=== PATIENT | female | born 1930 | race Caucasian/White ===

== ENCOUNTER → 2017-10-26 | Outpatient (CLI) | payer MEDICARE ==
[~2017-10-26] MED LIST: ASPIRIN81 MG PO; ATORVASTATIN CA40 MG PO; DICLOFENAC SODI50 MG PO; KEFLEX500 MG PO; NORCO 7.5-3251 EACH PO; SIMVASTATIN40 MG PO; TYLENOL WITH C1 EACH PO; XARELTO10 MG PO; Z.0.LIPITOR20 MG
--- NOTE | 2017-10-26 11:40 | Diagnostic Imaging Report ---
PROCEDURE:THORACIC SPINE 2VW COMPARISON:Patients [facility], DX, SP LUMBAR, COMPLETE MIN 4VW, 10/26/2017, 11:01. Patients [facility], DX, CHEST SINGLE (PORTABLE), 09/10/2013, 11:17. INDICATIONS:BACK PAIN FINDINGS:Generalized osteopenia. Age-indeterminate compression deformities of likely L1 and T10. Degenerative disc changes in the lower cervical and thoracic spine. No lytic or blastic lesions. No significant spondylolisthesis. Paravertebral soft tissues are unremarkable. Atherosclerotic calcification of the thoracic aorta. CONCLUSION: Generalized osteopenia, which limits evaluation of the bony structures. Age-indeterminate compression deformities of likely L1, and T10. Hiren Fuentes M.D. Dictated by: Hiren Fuentes M.D. on 10/26/2017 at 11:41 Electronically approved by: Hiren Fuentes M.D. on 10/26/2017 at 11:41
--- NOTE | 2017-10-26 11:43 | Diagnostic Imaging Report ---
PROCEDURE:L-SPINE COMPLETE COMPARISON:None. INDICATIONS:BACK PAIN FINDINGS: Generalized osteopenia. No definite acute, displaced fracture. Age-indeterminate compression deformities of the L1, L2, and L4 vertebral bodies. No other vertebral body heights are preserved. No lytic or blastic lesions. Mild degenerative disc changes. Slight grade 1 anterolisthesis of L5 on L4 and S1. Facet hypertrophy. L4-L5 and L5-S1. Atherosclerotic calcification of the abdominal aorta. Bilateral oblique views show no spondylolysis. CONCLUSION: Generalized osteopenia limits evaluation of the bony structures. Age-indeterminate compression deformities of the L1, L2, and L4 vertebral bodies. Degenerative disc changes with slight grade 1 anterolisthesis of L5 on L4 and S1. Hiren Fuentes M.D. Dictated by: Hiren Fuentes M.D. on 10/26/2017 at 11:44 Electronically approved by: Hiren Fuentes M.D. on 10/26/2017 at 11:44
== END ==
LOC: RAD 10:42
PROVIDERS: ATTEND Family Medicine
DX: M54.6 Pain in thoracic spine (principal); M54.5 Low back pain
CPT/HCPCS: 72070; 72110

== ENCOUNTER 2018-01-30 06:12 | Inpatient (IN) | payer MEDICARE ==
[2018-01-30] VITALS (27 sets, daily range): BP systolic 94–117; BP diastolic 42–64
[~2018-01-30] VITALS: Ht 160 cm; Wt 54.9 kg
[2018-01-30 06:34] LABS: BASOPHILS % 0.3 % (0.0-1.0); EOSINOPHILS # (AUTO) 0.2 (0.0-0.4); HEMATOCRIT 40.5 % (34.2-44.1); HEMOGLOBIN 13.4 g/dL (12.0-16.0); LYMPHOCYTES # (AUTO) 1.5 (1.0-3.2); LYMPHOCYTES % 13.4 % (18.0-39.1); MEAN CORPUSCULAR HEMOGLOBIN 30.4 pg (28-32); MEAN CORPUSCULAR HGB CONC 33.1 g/dL (31-35); MEAN CORPUSCULAR VOLUME 91.8 fL (81-99); MONOCYTES # (AUTO) 0.6 (0.2-0.8); NEUTROPHILS % 78.6 % (38.7-80.0); PLATELET COUNT 388 x10e3/uL (140-360); RED BLOOD COUNT 4.41 x10e6/uL (3.6-5.1); RED CELL DISTRIBUTION WIDTH 12.8 % (11.7-14.4)
[2018-01-30 06:45] LABS: INR 1.01; PROTHROMBIN TIME 12.5 seconds (11.9-14.5)
[2018-01-30 06:46] LABS: PARTIAL THROMBOPLASTIN TIME 29.7 seconds (23.8-35.5)
[2018-01-30] MEDS ORDERED: ONDANSETRON HCL INJ 2 MG/ML VIAL IV STA (06:48)
[2018-01-30] MEDS ORDERED: MORPHINE SULFATE 2 MG/ML SYR IV STA (06:48)
[2018-01-30 06:54] LABS: ALBUMIN 3.8 g/dL (3.5-5.0); ALBUMIN/GLOBULIN RATIO 1.1 (0.8-2.0); ANION GAP 15.5 mmol/L (8-16); CALCIUM 10.1 mg/dL (8.4-10.2); CREATININE, SERUM 1.73 mg/dL (0.57-1.11); POTASSIUM 4.5 mmol/L (3.5-5.1)
[2018-01-30] MEDS ORDERED: DIATRIZOATE MEGL/DIATRIZOA SOD 30 ML BTL PO ONE (06:55)
[2018-01-30 07:00] LABS: CREATINE KINASE MB 1.4 ng/mL (0-5.0)
[2018-01-30] MEDS ORDERED: NIFEDIPINE 10 MG CAP PO STA (07:04)
[2018-01-30] MEDS ORDERED: LABETALOL HCL 5 MG/ML 20ML VIAL IV STA (07:19)
[2018-01-30 07:43] LABS: CLARITY,URINE CLOUDY (CLEAR); COLOR,URINE YELLOW (YELLOW); KETONES,URINE TRACE (NEGATIVE); LEUKOCYTE ESTERASE ,URINE NEGATIVE (NEGATIVE); NITRITE,URINE NEGATIVE (NEGATIVE); PROTEIN,URINE DIPSTICK 2+ (NEGATIVE); URINE UROBILINOGEN 0.2 mg/dL (0.2 - 1)
[2018-01-30 07:44] LABS: BILIRUBIN,URINE 1+ (NEGATIVE)
[2018-01-30 07:47] LABS: EPITHELIAL CELLS,URINE MODERATE /LPF
[2018-01-30 07:48] LABS: BACTERIA,URINE MODERATE /HPF; RBC,URINE 0-5 /HPF (0-5); TRANSITIONAL EPI CELLS,URINE RARE
--- NOTE | 2018-01-30 08:46 | Diagnostic Imaging Report ---
PROCEDURE: CT ABDOMEN AND PELVIS WITHOUT CONTRAST TECHNIQUE: The abdomen and pelvis were scanned utilizing a multidetector helical scanner from the diaphragm to the lesser trochanter with administration of oral contrast. No IV contrast was administered per protocol request. Coronal and sagittal multiplanar reformations were obtained. COMPARISON: Lumbar spine radiographs 10/26/17. INDICATIONS: ABDOMINAL PAIN FINDINGS: ABSENCE OF INTRAVENOUS CONTRAST DECREASES SENSITIVITY FOR DETECTION OF FOCAL LESIONS AND VASCULAR PATHOLOGY. LOWER THORAX: Coronary atherosclerosis. Severe emphysematous changes of the lungs. Patchy opacities at the left lung base. Calcified granuloma in the left lower lobe. Bronchial wall thickening. HEPATOBILIARY: Multiple calcified granulomas in the liver. No other focal hepatic lesions. No biliary ductal dilatation. SPLEEN: No splenomegaly. Multiple calcified granulomas. PANCREAS: No focal masses or ductal dilatation. ADRENALS: No adrenal nodules. KIDNEYS/URETERS: No hydronephrosis, stones, or solid mass lesions. PELVIC ORGANS/BLADDER: Unremarkable. PERITONEUM / RETROPERITONEUM: Moderate to large volume free intraperitoneal air in the abdomen, most pronounced in the upper abdomen in perihepatic location and left upper quadrant. No source of perforated viscous identified. Small amount of free fluid in the abdomen. LYMPH NODES: No lymphadenopathy. VESSELS: Extensive atherosclerotic calcifications of the abdominal aorta and branch vessels. Infrarenal abdominal aortic aneurysm measuring up to 2.8 cm. GI TRACT: No distention or wall thickening. No evidence of bowel obstruction. BONES AND SOFT TISSUES: Unremarkable. Severe wedge compression deformities of L1 and L4 with loss of approximately 75 percent of vertebral body height. There has been interval loss of vertebral body height at L4 compared to radiograph on 10/26/17. Moderate wedge compression deformity of T12 and L2 with loss of approximately 50 percent of vertebral body height. Posterior fracture deformity at L2 with mild central canal narrowing. Mild wedge compression deformity of T11 with loss of 25 percent of vertebral body height. Mild retrolisthesis of L1 on L2. Degenerative changes of the lumbar spine. Status post left total hip arthroplasty. IMPRESSION: Moderate to large volume free intraperitoneal air, most pronounced in the upper abdomen. Site of perforated viscous is not identified. Multiple wedge compression deformities, severe at L1 and L4 with loss of vertebral body height at L4 compared to radiograph on 10/26/17. Moderate compression deformity at L2 with posterior fracture deformity, resulting in mild central canal narrowing. Findings discussed with ED Dr. Preciado on 01/30/18 at 848 AM. Dictated by: DEVONTE AGUIRRE M.D. on 01/30/2018 at 8:51 Electronically approved by: DEVONTE AGUIRRE M.D. on 01/30/2018 at 8:51
[2018-01-30] MEDS ORDERED: PANTOPRAZOLE 40 MG 10ML VIAL IV STA (08:50)
[2018-01-30] MEDS ORDERED: PIPER-TAZ 3.375 GM 50 ML IV ONE (09:00)
[2018-01-30] MEDS ORDERED: SODIUM CHLORIDE 0.9% 1000ML 1,000 ML IV ONE (09:00)
[2018-01-30] MEDS ORDERED: HEPARIN SOD (PORCINE) 5,000 UNIT/ML VIAL ONE (10:43)
[2018-01-30] MEDS ORDERED: HEPARIN SOD/SOD CHLORIDE 1,000 ML ONE (10:44)
--- NOTE | 2018-01-30 11:36 | Diagnostic Imaging Report ---
PROCEDURE:ABDOMEN-1VIEW (KUB) COMPARISON: CT abdomen/pelvis 01/30/2018. INDICATIONS:NASOGASTRIC TUBE PLACEMENT FINDINGS:Motion artifact limits evaluation. No NG tube is identified on this radiograph. Upper abdomen is partially excluded from the field of view. Please refer to same day CT for details of intraperitoneal air. Air filled colonic loops measuring up to 8.8 cm are noted. Degenerative changes of the lower lumbar spine with loss of vertebral body heights, better characterized on same day CT. Conclusion: No NG tube is identified on KUB. Consider chest radiograph to evaluate for potential NG tube position in the thorax. Please refer to same day CT for details of intraperitoneal air. Air filled colonic loops are noted. Dictated by: DEVONTE AGUIRRE M.D. on 01/30/2018 at 11:41 Electronically approved by: DEVONTE AGUIRRE M.D. on 01/30/2018 at 11:41
[2018-01-30] MEDS ORDERED: SODIUM CHLORIDE 0.9% 1000ML 1,000 ML IV SCH (12:20)
[2018-01-30] MEDS ORDERED: ONDANSETRON HCL INJ 2 MG/ML VIAL IV PRN ×2 (12:30→15:15)
[2018-01-30] MEDS ORDERED: SODIUM CHLORIDE FLUSH 10 ML SYR INJ PRN (12:30)
[2018-01-30] MEDS ORDERED: NEOSTIGMINE 5 MG/5ML SYR ONE (14:39)
[2018-01-30] MEDS ORDERED: LIDOCAINE HCL 2% LOCAL INJ 5 ML SDV VIAL INJ ONE (14:39)
[2018-01-30] MEDS ORDERED: DEXAMETHASONE SOD PHOS INJ 4 MG/ML VIAL ONE (14:39)
[2018-01-30] MEDS ORDERED: ONDANSETRON HCL INJ 2 MG/ML VIAL ONE (14:39)
[2018-01-30] MEDS ORDERED: ETOMIDATE 2 MG/ML 10 ML INJ IV ONE (14:39)
[2018-01-30] MEDS ORDERED: PHENYLEPHRINE HCL 1% 10 MG/ML VIAL ONE (14:39)
[2018-01-30] MEDS ORDERED: EPHEDRINE SULFATE INJ 50 MG/10 ML SYR ONE (14:39)
[2018-01-30] MEDS ORDERED: SUCCINYLCHOLINE 200 MG/10 ML SYR ONE (14:39)
[2018-01-30] MEDS ORDERED: ROCURONIUM BROMIDE 10 MG/ML 5ML VIAL ONE (14:39)
[2018-01-30] MEDS ORDERED: PROPOFOL IV EMULSION 10 MG/ML 20 ML VIAL ONE (14:39)
[2018-01-30] MEDS ORDERED: ESMOLOL HCL 100MG/10ML 10 MG/ML VIAL ONE (14:39)
[2018-01-30] MEDS ORDERED: HYDRALAZINE HCL 20 MG/ML VIAL ONE (14:39)
[2018-01-30] MEDS ORDERED: SEVOFLURANE INHAL SOLN 250 ML PEN BTL ONE (14:39)
[2018-01-30] MEDS ORDERED: GLYCOPYRROLATE INJ 1MG/ 5 ML SYR ONE (14:39)
[2018-01-30] MEDS ORDERED: ACETAMINOPHEN 1000 MG/100 ML IV PRN (15:15)
[2018-01-30] MEDS: SODIUM CHLORIDE 0.9% 250ML IRRIG IR SCH ×3 (15:15→22:30)
[2018-01-30] MEDS ORDERED: CEFTRIAXONE SOD 1 GM VIAL IV SCH (15:30)
[2018-01-30] MEDS ORDERED: SODIUM CHLORIDE 0.9% 50ML 50 ML ONE (16:00)
--- NOTE | 2018-01-30 17:02 | Diagnostic Imaging Report ---
PROCEDURE: A single AP view of the chest. COMPARISON: Patients [facility], DX, CHEST SINGLE (PORTABLE), 09/10/2013, 11:17. INDICATIONS: FALL FINDINGS: Lines/tubes: Enteric tube has distal tip projecting in the stomach fundus/body and proximal side port likely in the proximal fundus. Right sided central line has distal tip projecting in the proximal to mid SVC. Lungs: The lungs are well-inflated. Bilateral perihilar interstitial opacities. Increased retrocardiac density with near total obscuration of the left hemidiaphragm Pleura: No right effusion, or a pneumothorax. Heart and mediastinum: Mildly prominent cardiac silhouette, which may be partly due to AP projection. Central pulmonary venous congestion Bones: No acute bony abnormality. IMPRESSION: 1. central pulmonary venous congestion and bilateral perihilar interstitial edema. 2. Increased retrocardiac density with near total obscuration of the left hemidiaphragm may represent left pleural effusion and associated compressive atelectasis or consolidation. Hiren Fuentes M.D. Dictated by: Hiren Fuentes M.D. on 01/30/2018 at 17:08 Electronically approved by: Hiren Fuentes M.D. on 01/30/2018 at 17:08
[2018-01-30] MEDS: DEXTROSE 5%/LACTATED RINGERS 1,000 ML IV SCH (17:59)
[2018-01-30] MEDS ORDERED: MORPHINE SULFATE INJ 10 MG/ML ONE (19:49)
[2018-01-30] MEDS ORDERED: FENTANYL CITRATE/PF 100MCG/2 ML INJ ONE (19:49)
[2018-01-30] MEDS: METRONIDAZOLE 500MG/NS 100ML 100 ML IV SCH (21:40)
[2018-01-30] MEDS: CEFEPIME HCL 1 GM VIAL IV SCH (21:40)
[2018-01-31] VITALS (68 sets, daily range): BP systolic 102–169; BP diastolic 40–106
[2018-01-31 01:52] LABS: ABG HCO3 22 mmol/L (23-28); ABG PCO2 47 mmHg (41-51); ABG PH 7.28 (7.31-7.41); ABG PO2 99 mmHg (80-105)
[2018-01-31 01:58] LABS: ABG HCO3 22 mmol/L (23-28); ABG PCO2 48 mmHg (41-51); ABG PH 7.28 (7.31-7.41); ABG PO2 90 mmHg (80-105)
[2018-01-31] MEDS: SODIUM CHLORIDE 0.9% 250ML IRRIG IR SCH ×6 (04:00→23:15)
[2018-01-31 04:41] LABS: BASOPHILS % 0.1 % (0.0-1.0); HEMATOCRIT 29.9 % (34.2-44.1); HEMOGLOBIN 9.7 g/dL (12.0-16.0); LYMPHOCYTES # (AUTO) 0.4 (1.0-3.2); MEAN CORPUSCULAR HEMOGLOBIN 30.6 pg (28-32); MEAN CORPUSCULAR HGB CONC 32.4 g/dL (31-35); MEAN CORPUSCULAR VOLUME 94.3 fL (81-99); MONOCYTES # (AUTO) 0.6 (0.2-0.8); MONOCYTES % 4.5 % (4.4-11.3); NEUTROPHILS # (AUTO) 12.5 (2.1-6.9); NEUTROPHILS % 92.2 % (38.7-80.0); PLATELET COUNT 234 x10e3/uL (140-360); RED BLOOD COUNT 3.17 x10e6/uL (3.6-5.1); RED CELL DISTRIBUTION WIDTH 13.1 % (11.7-14.4)
[2018-01-31 05:07] LABS: ALBUMIN 2.3 g/dL (3.5-5.0); ANION GAP 10.8 mmol/L (8-16); CALCIUM 7.8 mg/dL (8.4-10.2); CREATININE, SERUM 1.42 mg/dL (0.57-1.11); POTASSIUM 4.8 mmol/L (3.5-5.1)
[2018-01-31] MEDS: DEXTROSE 5%/LACTATED RINGERS 1,000 ML IV SCH ×3 (05:10→21:13)
[2018-01-31] MEDS: METRONIDAZOLE 500MG/NS 100ML 100 ML IV SCH ×3 (05:10→21:32)
[2018-01-31] MEDS: CEFEPIME HCL 1 GM VIAL IV SCH ×3 (05:10→21:32)
[2018-01-31 06:31] LABS: BAND NEUTROPHILS % (MANUAL) 9 %; LYMPHOCYTES % (MANUAL) 1 % (19-48); MONOCYTES % (MANUAL) 5 % (3.4-9.0); NEUTROPHILS % (MANUAL) 85 % (40-74); PLATELET ESTIMATE ADEQUATE; PLATELET MORPHOLOGY COMMENT NORMAL; RBC MORPHOLOGY COMMENT NORMAL
--- NOTE | 2018-01-31 13:59 | Operative Report ---
DATE OF PROCEDURE: January 30, 2018 PREOPERATIVE DIAGNOSIS: Perforated viscus. POSTOPERATIVE DIAGNOSIS: Perforated duodenal ulcer with peritonitis. OPERATION PERFORMED: 1. Exploratory laparotomy. 2. Vagotomy. 3. Antrectomy with Gerhard-en-Y retrocolic reconstruction. BUFFING AND SUEDING MACHINE OPERATOR: Dr. Albert Berry. ANESTHESIA: General. COMPLICATIONS: None. ESTIMATED BLOOD LOSS: 100 mL. DESCRIPTION OF PROCEDURE: With the patient lying in bed in the supine position under good general endotracheal anesthesia, the abdomen was prepped with Betadine solution and draped in the usual manner. An upper midline incision was made. It was carried down through the subcutaneous tissue and through the midline fascia. The peritoneum was opened and the abdomen was entered. Upon entering the abdominal cavity, exploration revealed some gastric fluid and contents in the upper abdomen consistent with a perforated-type ulcer. This seemed to be contained mostly to the upper abdomen. Examination at this point revealed that there was a huge perforation of the duodenal bulb with basically the complete anterior aspect of the duodenal bulb blown out. We decided that it would be very difficult to close such a large perforation without running a very high risk of the whole suture line falling apart and potentially also causing a significant stricture. As the perforation had totally blown out the anterior wall of the duodenum, we decided that the safest thing to do would be to do a resection. All of the abdomen was then explored. There was not much contamination in the lower abdomen. All of the fluid in the right upper quadrant was then aspirated, and there were some adhesions in the mid abdomen from the patient's old surgery that were taken down so that we could have free access to the intra-abdominal cavity. At this point, the distal esophagus was then mobilized and retracted. The anterior and the posterior vagi were identified, and a section was removed and a complete vagotomy was achieved. The short gastrics were then divided using the Enseal device. The lesser sac was entered, and the stomach was slowly dissected along the greater curvature all the way through the duodenum and beyond the area of the perforation. The gastroduodenal artery was identified, ligated with 2-0 silk and divided. The lesser curvature vessels were then divided with the Enseal device all the way down to the duodenum. At this point, an application of the TA-60 was used, and the duodenum was divided including the point of perforation. Once this was done, the stomach was then divided proximally to a full antrectomy using an application of the TA-90 stapler and the specimen was sent for pathological examination. The gastric staple line and the duodenal staple line were then both oversewn with silk suture. The ligament of Treitz was then identified, and at a proper place that would easily reach into the upper abdomen the proximal jejunum was then divided with an application of the MICHELLE 75 stapler. The limb was then brought up in a retrocolic fashion up into the upper abdomen with absolutely no tension whatsoever. The gastric jejunostomy was then performed with another application of the MICHELLE 75 stapler, and the remaining opening was closed with a TA-60 stapler and the anastomosis was reinforced with 3-0 silk suture. The jejunojejunostomy was then performed 50 cm distal to the gastric jejunostomy in a [id number] fashion with another application of the MICHELLE 75 stapler, and the remaining opening was closed with a TA-60 stapler. Gloves and instruments were then exchanged. The jejunojejunostomy was then reinforced with interrupted sutures of 3-0 silk. The mesenteric rent was then closed with a running suture of 2-0 Vicryl. The abdomen was then copiously irrigated with many liters of saline solution, and perfect hemostasis was ascertained. The nasogastric tube was placed in the proper spot in the gastric pouch, and then the abdomen was then closed in layers. The peritoneum was closed with a running suture of number 1 Vicryl. The midline fascia was closed with a running suture of number 1 Vicryl, and the skin was closed with clips. A dressing was applied. The sponge, lap and needle count was correct. The patient tolerated the procedure well and returned to the recovery room in stable condition. Job#: [id number] EV
--- NOTE | 2018-01-31 14:07 | History and Physical ---
CHIEF COMPLAINT: Abdominal pain. HPI: Current information is being obtained from the nursing staff and ER note as the patient is currently sedated in the ICU. This is an 87-year-old female who comes into the ED with complaints of abdominal pain in which she has been taking Advil and NSAIDs for unknown period of time due to chronic pain, presents due to abdominal pain for further evaluation to the ER. According to the imaging studies here, she was found to have free air seen on CT abdomen and pelvis requiring urgent surgery. General surgery was consulted in which the patient went to the OR urgently. She was found to have a perforated duodenum and which was operated on and taken care of now. Patient seen and evaluated at bedside in the ICU, currently sedated after given significant amount of pain control in PACU. REVIEW OF SYSTEMS: Pertinent positive: Abdominal pain. I am unable to obtain the rest of the 14-point review of systems as the patient is currently sedated. ALLERGIES: NO KNOWN DRUG ALLERGIES. HOME MEDICATIONS: 1. Aspirin 162 mg daily. 2. Xarelto 1 mg p.o. daily. 3. Simvastatin 40 mg at bedtime. PAST MEDICAL HISTORY: Unknown as patient is currently sedated. SURGICAL HISTORY: Unknown. FAMILY HISTORY: Hypertension and diabetes. SOCIAL HISTORY: No reports of drugs, alcohol, or smoking or any other issues. Many of the information is being unobtainable due to the patient being sedated and not responsive at this time. PHYSICAL EXAMINATION: VITAL SIGNS: Temperature 97.4, pulse 82, respiratory rate is approximately 8 to 10 with blood pressure 117/53, pulse ox 100% on 2 liters nasal cannula. GENERAL: Currently sedated on examination, but able to open her eyes during sternal rub. HEENT: Head: Normocephalic, atraumatic. Eyes: Pupils equal, round, and reactive to light bilaterally. Extraocular movements intact bilaterally. Throat: No evidence of any erythema or exudates in the posterior pharynx. Poor dentition. NECK: Supple with good range of motion. PULMONARY: Clear to auscultation bilaterally. No wheezing, no rales, no rhonchi, no crackles appreciated. CARDIOVASCULAR: Positive S1 and S2. No murmurs, rubs, or gallops appreciated. ABDOMEN: Soft, nondistended, nontender to palpation. Bowel sounds present. MUSCULOSKELETAL: Unable to obtain, currently sedated. NEUROLOGICAL: Currently sedated. SKIN: Intact. Warm to touch. Good cap refill. PSYCHIATRIC: Currently sedated. EXTREMITIES: No edema. LAB FINDINGS: Showed white count 11.4, hemoglobin 13.4, hematocrit is 41, platelets of 388,000. Coagulation is normal. Chemistry: Sodium 129, potassium 4.5, chloride 92, bicarb 26, anion gap of 15, BUN is 29, creatinine is 1.7. LFTs were normal. Calcium 10.1. Troponin negative. Albumin 3.8, lipase 57. Urinalysis shows negative leukocyte esterase, negative nitrite. MICROBIOLOGY: Urine culture is pending. IMAGING STUDIES: CT abdomen and pelvis shows moderate to large volume free intraperitoneal air in the abdomen. There are some multiple wedge compression deformities seen as well. Abdominal x-ray, air-filled colonic loops are noted. Chest x-ray, central venous pulmonary congestion, bilateral perihilar interstitial edema. Increased retrocardiac density with near total obscuration of the left diaphragm. IMPRESSION: 1. Status post intraperitoneal perforation, likely secondary to nonsteroidal antiinflammatory drug usage with duodenal perforation. 2. Hypertension. PLAN: At this time, general surgery has already taken the patient to the OR status post repair of a duodenal ulceration. Currently, the patient is doing well, but very heavily sedated after given pain medication in PACU. Her vital signs are stable during my evaluation at this time. She has an NG tube currently to gravity. We are going to get PT to do ambulation to increase gut movement. Minimize pain control as well. Start on IV cefepime and Flagyl for antibiotic coverage due to the perforation. We are going to get a.m. labs as well. Hold anticoagulation for now until cleared by surgery. She is also currently on scheduled Tylenol for pain control. Otherwise, will continue to follow the patient and get a.m. labs. Job#: [id number]
[2018-01-31] MEDS ORDERED: ACETAMINOPHEN 1000 MG/100 ML IV PRN (16:15)
[2018-01-31] MEDS: HYDROMORPHONE 1MG/1ML INJ IV PRN (20:22)
[2018-02-01] VITALS (45 sets, daily range): BP systolic 137–190; BP diastolic 57–135
[2018-02-01] MEDS: SODIUM CHLORIDE 0.9% 250ML IRRIG IR SCH ×6 (03:07→23:48)
[2018-02-01 05:05] LABS: BASOPHILS % 0.2 % (0.0-1.0); EOSINOPHILS # (AUTO) 0.2 (0.0-0.4); EOSINOPHILS % 1.7 % (0.0-6.0); HEMATOCRIT 26.7 % (34.2-44.1); HEMOGLOBIN 8.5 g/dL (12.0-16.0); LYMPHOCYTES # (AUTO) 0.7 (1.0-3.2); LYMPHOCYTES % 5.6 % (18.0-39.1); MEAN CORPUSCULAR HEMOGLOBIN 30.4 pg (28-32); MEAN CORPUSCULAR HGB CONC 31.8 g/dL (31-35); MEAN CORPUSCULAR VOLUME 95.4 fL (81-99); MONOCYTES # (AUTO) 0.6 (0.2-0.8); MONOCYTES % 4.4 % (4.4-11.3); NEUTROPHILS # (AUTO) 11.1 (2.1-6.9); NEUTROPHILS % 87.7 % (38.7-80.0); PLATELET COUNT 232 x10e3/uL (140-360); RED CELL DISTRIBUTION WIDTH 13.3 % (11.7-14.4)
[2018-02-01] MEDS: DEXTROSE 5%/LACTATED RINGERS 1,000 ML IV SCH ×2 (05:30→18:00)
[2018-02-01 05:42] LABS: ALBUMIN 2.1 g/dL (3.5-5.0); ALBUMIN/GLOBULIN RATIO 0.9 (0.8-2.0); ANION GAP 9.1 mmol/L (8-16); CALCIUM 7.9 mg/dL (8.4-10.2); CREATININE, SERUM 1.31 mg/dL (0.57-1.11); POTASSIUM 4.1 mmol/L (3.5-5.1)
--- NOTE | 2018-02-01 06:03 | Diagnostic Imaging Report ---
EXAM: CHEST SINGLE (PORTABLE), AP 1 view INDICATION: CVP COMPARISON: AP view of the chest January 30, 2018 FINDINGS: LINES/TUBES: Stable right internal jugular vein central line and nasal/orogastric tube. LUNGS: Stable left retrocardiac opacification and mild interstitial thickening. PLEURA: No effusions or pneumothorax. HEART AND MEDIASTINUM: Stable appearance BONES AND SOFT TISSUES: No acute findings. IMPRESSION: No interval change Signed by: Dr. Ruth Bourgeois M.D. on 02/01/2018 5:59 AM
[2018-02-01] MEDS: CEFEPIME HCL 1 GM VIAL IV SCH ×3 (06:07→22:25)
[2018-02-01] MEDS: METRONIDAZOLE 500MG/NS 100ML 100 ML IV SCH ×3 (06:07→22:25)
[2018-02-01] MEDS: HYDROMORPHONE 1MG/1ML INJ IV PRN (08:15)
[2018-02-01] MEDS ORDERED: HYDRALAZINE HCL 20 MG/ML VIAL ONE (14:33)
[2018-02-01] MEDS: HYDRALAZINE HCL 20 MG/ML VIAL IV PRN (14:36)
[2018-02-02] VITALS (41 sets, daily range): BP systolic 134–180; BP diastolic 54–85
[2018-02-02] MEDS: HYDRALAZINE HCL 20 MG/ML VIAL IV PRN ×2 (02:31→10:29)
[2018-02-02] MEDS: SODIUM CHLORIDE 0.9% 250ML IRRIG IR SCH ×6 (03:15→23:15)
[2018-02-02 04:47] LABS: BASOPHILS % 0.3 % (0.0-1.0); EOSINOPHILS # (AUTO) 0.7 (0.0-0.4); EOSINOPHILS % 4.8 % (0.0-6.0); HEMOGLOBIN 8.8 g/dL (12.0-16.0); LYMPHOCYTES # (AUTO) 0.6 (1.0-3.2); LYMPHOCYTES % 4.2 % (18.0-39.1); MEAN CORPUSCULAR HEMOGLOBIN 30.8 pg (28-32); MEAN CORPUSCULAR HGB CONC 32.6 g/dL (31-35); MEAN CORPUSCULAR VOLUME 94.4 fL (81-99); MONOCYTES # (AUTO) 0.5 (0.2-0.8); MONOCYTES % 3.6 % (4.4-11.3); NEUTROPHILS # (AUTO) 12.3 (2.1-6.9); NEUTROPHILS % 85.8 % (38.7-80.0); PLATELET COUNT 231 x10e3/uL (140-360); RED BLOOD COUNT 2.86 x10e6/uL (3.6-5.1); RED CELL DISTRIBUTION WIDTH 13.5 % (11.7-14.4)
[2018-02-02 05:04] LABS: ALBUMIN 2.1 g/dL (3.5-5.0); ALBUMIN/GLOBULIN RATIO 0.9 (0.8-2.0); ANION GAP 10.7 mmol/L (8-16); CALCIUM 8.3 mg/dL (8.4-10.2); CREATININE, SERUM 0.92 mg/dL (0.57-1.11); POTASSIUM 3.7 mmol/L (3.5-5.1)
[2018-02-02] MEDS: DEXTROSE 5%/LACTATED RINGERS 1,000 ML IV SCH ×3 (05:05→23:13)
[2018-02-02] MEDS: METRONIDAZOLE 500MG/NS 100ML 100 ML IV SCH ×3 (05:39→21:02)
[2018-02-02] MEDS: CEFEPIME HCL 1 GM VIAL IV SCH ×3 (05:39→21:02)
--- NOTE | 2018-02-02 06:50 | Diagnostic Imaging Report ---
EXAM: CHEST SINGLE (PORTABLE), AP 1 view INDICATION: CVP COMPARISON: AP view of the chest February 02, 2018 FINDINGS: LINES/TUBES: Stable right internal jugular vein central line and nasal/orogastric tube. LUNGS: Stable left retrocardiac opacification and mild interstitial thickening. PLEURA: Questionable left pleural effusion. HEART AND MEDIASTINUM: Stable appearance. BONES AND SOFT TISSUES: No acute findings. IMPRESSION: No interval change. Signed by: Dr. Ruth Bourgeois M.D. on 02/02/2018 6:46 AM
[2018-02-03] VITALS (39 sets, daily range): BP systolic 143–186; BP diastolic 58–123
[2018-02-03] MEDS: SODIUM CHLORIDE 0.9% 250ML IRRIG IR SCH (00:02)
[2018-02-03] MEDS: HYDRALAZINE HCL 20 MG/ML VIAL IV PRN ×2 (04:11→16:30)
[2018-02-03] MEDS: METRONIDAZOLE 500MG/NS 100ML 100 ML IV SCH ×3 (06:34→22:00)
[2018-02-03] MEDS: CEFEPIME HCL 1 GM VIAL IV SCH ×3 (06:34→21:24)
--- NOTE | 2018-02-03 06:36 | Diagnostic Imaging Report ---
EXAM: CHEST SINGLE (PORTABLE), AP 1 view INDICATION: CVP COMPARISON: AP view of the chest February 02, 2018 FINDINGS: LINES/TUBES: Stable right neck central line. Interval removal of nasal/orogastric tube. LUNGS: Stable left retrocardiac opacification. PLEURA: Small to moderate left pleural effusion. HEART AND MEDIASTINUM: Stable appearance BONES AND SOFT TISSUES: No acute findings. IMPRESSION: No significant interval change. Signed by: Dr. Ruth Bourgeois M.D. on 02/03/2018 6:33 AM
[2018-02-03] MEDS: DEXTROSE 5%/LACTATED RINGERS 1,000 ML IV SCH (09:05)
[2018-02-03] MEDS ORDERED: ACETAMINOPHEN 325 MG TAB PO PRN (10:15)
[2018-02-03] MEDS: NIFEDIPINE CR 30 MG TAB PO SCH (14:11)
[2018-02-04] VITALS (9 sets, daily range): BP systolic 141–193; BP diastolic 70–84
[2018-02-04] MEDS: DEXTROSE 5%/LACTATED RINGERS 1,000 ML IV SCH (04:32)
[2018-02-04] MEDS: CEFEPIME HCL 1 GM VIAL IV SCH ×3 (05:45→21:39)
[2018-02-04] MEDS: METRONIDAZOLE 500MG/NS 100ML 100 ML IV SCH ×3 (05:46→21:39)
[2018-02-04 06:12] LABS: BASOPHILS % 0.3 % (0.0-1.0); EOSINOPHILS # (AUTO) 0.8 (0.0-0.4); EOSINOPHILS % 8.2 % (0.0-6.0); HEMATOCRIT 27.8 % (34.2-44.1); HEMOGLOBIN 9.1 g/dL (12.0-16.0); LYMPHOCYTES # (AUTO) 0.7 (1.0-3.2); LYMPHOCYTES % 6.8 % (18.0-39.1); MEAN CORPUSCULAR HEMOGLOBIN 30.8 pg (28-32); MEAN CORPUSCULAR HGB CONC 32.7 g/dL (31-35); MEAN CORPUSCULAR VOLUME 94.2 fL (81-99); MONOCYTES # (AUTO) 0.9 (0.2-0.8); MONOCYTES % 9.3 % (4.4-11.3); NEUTROPHILS # (AUTO) 7.4 (2.1-6.9); NEUTROPHILS % 74.9 % (38.7-80.0); PLATELET COUNT 219 x10e3/uL (140-360); RED BLOOD COUNT 2.95 x10e6/uL (3.6-5.1); RED CELL DISTRIBUTION WIDTH 13.5 % (11.7-14.4)
[2018-02-04 06:30] LABS: ANION GAP 8.3 mmol/L (8-16); BLOOD UREA NITROGEN 14 mg/dL (7-26); BUN/CREATININE RATIO 17 (6-25); CALCIUM 8.3 mg/dL (8.4-10.2); CARBON DIOXIDE 28 mmol/L (22-29); CHLORIDE 103 mmol/L (98-107); CREATININE, SERUM 0.83 mg/dL (0.57-1.11); EST GLOMERULAR FILTRATION RATE > 60 ML/MIN (60-); GLUCOSE 105 mg/dL (74-118); POTASSIUM 3.3 mmol/L (3.5-5.1); SODIUM 136 mmol/L (136-145)
[2018-02-04] MEDS ORDERED: POTASSIUM CHLORIDE 20 MEQ TAB CR PO STA (07:46)
[2018-02-04] MEDS ORDERED: POTASSIUM CHLORIDE 20MEQ/100ML 100 ML IV ONE (08:00)
[2018-02-04] MEDS: NIFEDIPINE CR 30 MG TAB PO SCH (09:11)
[2018-02-04] MEDS: HYDRALAZINE HCL 20 MG/ML VIAL IV PRN ×2 (11:30→21:00)
[2018-02-04] MEDS ORDERED: HYDROCODONE/APAP 5MG-325MG TAB PO PRN (17:00)
[2018-02-05] VITALS: BP 140/61
[2018-02-05 04:00] VITALS: BP 161/68
[2018-02-05 04:53] LABS: BASOPHILS # (AUTO) 0.1 (0.0-0.1); BASOPHILS % 0.4 % (0.0-1.0); EOSINOPHILS # (AUTO) 0.6 (0.0-0.4); EOSINOPHILS % 5.1 % (0.0-6.0); HEMATOCRIT 28.7 % (34.2-44.1); HEMOGLOBIN 9.4 g/dL (12.0-16.0); LYMPHOCYTES # (AUTO) 0.9 (1.0-3.2); LYMPHOCYTES % 6.8 % (18.0-39.1); MEAN CORPUSCULAR HEMOGLOBIN 30.8 pg (28-32); MEAN CORPUSCULAR HGB CONC 32.8 g/dL (31-35); MEAN CORPUSCULAR VOLUME 94.1 fL (81-99); MONOCYTES % 7.8 % (4.4-11.3); NEUTROPHILS # (AUTO) 9.9 (2.1-6.9); NEUTROPHILS % 79.2 % (38.7-80.0); PLATELET COUNT 234 x10e3/uL (140-360); RED BLOOD COUNT 3.05 x10e6/uL (3.6-5.1); RED CELL DISTRIBUTION WIDTH 13.8 % (11.7-14.4)
[2018-02-05 05:11] LABS: ANION GAP 13.7 mmol/L (8-16); BLOOD UREA NITROGEN 15 mg/dL (7-26); BUN/CREATININE RATIO 19 (6-25); CALCIUM 8.4 mg/dL (8.4-10.2); CARBON DIOXIDE 26 mmol/L (22-29); CHLORIDE 102 mmol/L (98-107); CREATININE, SERUM 0.81 mg/dL (0.57-1.11); EST GLOMERULAR FILTRATION RATE > 60 ML/MIN (60-); GLUCOSE 91 mg/dL (74-118); POTASSIUM 3.7 mmol/L (3.5-5.1); SODIUM 138 mmol/L (136-145)
[2018-02-05] MEDS: CEFEPIME HCL 1 GM VIAL IV SCH ×3 (05:54→21:20)
[2018-02-05] MEDS: METRONIDAZOLE 500MG/NS 100ML 100 ML IV SCH ×3 (05:54→21:20)
[2018-02-05 07:57] VITALS: BP 160/96
[2018-02-05] MEDS: NIFEDIPINE CR 30 MG TAB PO SCH (08:22)
[2018-02-05 12:10] VITALS: BP 161/69
[2018-02-05 16:53] VITALS: BP 130/64
[2018-02-05 20:00] VITALS: BP 166/72
[2018-02-06] VITALS: BP 170/70
[2018-02-06 04:00] VITALS: BP 163/72
[2018-02-06] MEDS: METRONIDAZOLE 500MG/NS 100ML 100 ML IV SCH ×2 (05:42→14:01)
[2018-02-06] MEDS: CEFEPIME HCL 1 GM VIAL IV SCH ×2 (05:42→14:01)
[2018-02-06 08:29] VITALS: BP 155/66
[2018-02-06] MEDS: NIFEDIPINE CR 30 MG TAB PO SCH (09:02)
[2018-02-06 12:00] VITALS: BP 166/74
[2018-02-06 16:00] VITALS: BP 169/72
[2018-02-06] MEDS ORDERED: OLANZAPINE 5 MG TAB PO PRN ×2 (16:00→16:30)
--- NOTE | 2018-02-06 17:40 | Consultation ---
DATE OF CONSULTATION: February 06, 2018 PSYCHIATRIC CONSULTATION REASON FOR CONSULTATION: To evaluate patient's mood. HISTORY OF PRESENTING ILLNESS: The patient is an 87-year-old female admitted to the hospital for perforation of viscus. Psychiatric consultation is called to evaluate patient's mood. As per the medical record, patient has history of hypertension. Upon evaluation today, patient is found to be lying in the bed. She is alert, awake and oriented to self and place, but she is somewhat confused. She denies any depression or anxiety. She denies feeling hopeless or helpless. She denies any suicidal or homicidal ideation. She is having some passive wish, wanting to due to pain. She is having poor appetite. She denies any issue with sleep. Discussed with patient's daughter, who is in the room. PAST PSYCHIATRIC HISTORY: Patient denies past psychiatric history. She denies past suicidal attempts. Patient denies alcohol or drug use. FAMILY HISTORY: Denied. SOCIAL HISTORY: Patient states she lives with her . MENTAL STATUS EXAMINATION: The patient is an elderly female. She is alert, awake, and oriented to situation. She is mildly confused. Mood is depressed. Thought process is concrete. No delusion elicited. She denies any hallucinations. She denies any suicidal or homicidal ideation. Insight and judgment are limited. Memory is grossly impaired. CURRENT MEDICATIONS 1. Metronidazole. 2. Cefepime. 3. Nifedipine. 4. [place]. 5. Hydralazine. 6. Acetaminophen. 7. Zofran. CURRENT LABS: WBC is 12.55, RBC 3.25, hemoglobin 9.4, hematocrit 28.7, platelet 234. Sodium 138, potassium 3.7, chloride 103, BUN 15, creatinine is 0.81. ASSESSMENT: Adjustment disorder with mixed mood; unspecified psychosis; underlying dementia. PLAN 1. Add Zyprexa 2.5 mg p.o. q.6 hour p.r.n. 2. Add Remeron 7.5 mg p.o. q.h.s. 3. Monitor for mood and agitation and psychosis. 4. Supportive therapy. Thank you for this consultation. Dictated by: MICHEAL Castro Job#: [id number] VAS
[2018-02-06 20:00] VITALS: BP 156/68
[2018-02-06] MEDS: MIRTAZAPINE 15 MG TAB PO SCH (22:33)
[2018-02-07] VITALS (8 sets, daily range): BP systolic 134–175; BP diastolic 63–72
[2018-02-07] MEDS: HYDRALAZINE HCL 20 MG/ML VIAL IV PRN (01:15)
[2018-02-07] MEDS: NIFEDIPINE CR 30 MG TAB PO SCH (08:57)
[2018-02-07 11:48] LABS: BASOPHILS # (AUTO) 0.1 (0.0-0.1); BASOPHILS % 0.5 % (0.0-1.0); EOSINOPHILS # (AUTO) 0.8 (0.0-0.4); EOSINOPHILS % 6.1 % (0.0-6.0); HEMATOCRIT 31.5 % (34.2-44.1); HEMOGLOBIN 10.2 g/dL (12.0-16.0); LYMPHOCYTES # (AUTO) 0.9 (1.0-3.2); MEAN CORPUSCULAR HEMOGLOBIN 30.8 pg (28-32); MEAN CORPUSCULAR HGB CONC 32.4 g/dL (31-35); MEAN CORPUSCULAR VOLUME 95.2 fL (81-99); MONOCYTES % 7.2 % (4.4-11.3); NEUTROPHILS # (AUTO) 10.3 (2.1-6.9); NEUTROPHILS % 78.7 % (38.7-80.0); PLATELET COUNT 306 x10e3/uL (140-360); RED BLOOD COUNT 3.31 x10e6/uL (3.6-5.1); RED CELL DISTRIBUTION WIDTH 13.8 % (11.7-14.4)
[2018-02-07 12:06] LABS: ANION GAP 15.6 mmol/L (8-16); BLOOD UREA NITROGEN 17 mg/dL (7-26); BUN/CREATININE RATIO 21 (6-25); CALCIUM 8.7 mg/dL (8.4-10.2); CARBON DIOXIDE 23 mmol/L (22-29); CHLORIDE 100 mmol/L (98-107); EST GLOMERULAR FILTRATION RATE > 60 ML/MIN (60-); GLUCOSE 91 mg/dL (74-118); POTASSIUM 3.6 mmol/L (3.5-5.1); SODIUM 135 mmol/L (136-145)
[2018-02-07] MEDS: DEXTROSE 5%/0.45% SOD CHL 1,000 ML IV SCH (12:48)
[2018-02-07] MEDS: MIRTAZAPINE 15 MG TAB PO SCH (20:54)
[2018-02-08] MEDS: DEXTROSE 5%/0.45% SOD CHL 1,000 ML IV SCH (02:10)
[2018-02-08 04:00] VITALS: BP 171/72
[2018-02-08 05:54] VITALS: BP 154/67
[2018-02-08 09:00] VITALS: BP 150/67
[2018-02-08] MEDS: NIFEDIPINE CR 30 MG TAB PO SCH (09:08)
[2018-02-08 09:41] VITALS: BP 150/67
[2018-02-08] MEDS ORDERED: REMERON15 M1 PO (10:47)
[2018-02-08] MEDS ORDERED: LIDOCAINE PATCH 5% TD (10:49)
--- NOTE | 2018-02-08 13:10 | Progress Note ---
DATE: February 07, 2018 PSYCHIATRIC PROGRESS NOTE DISTORTED VOICE SUBJECTIVE: Patient evaluated and events noted. Patient is in the room. She is alert, awake, and oriented. She is tired. She is confused, and she is not eating. She is not febrile or agitated. Patient continues to be depressed, is having passive wish, but denies any suicidal ideation. is in the room who reports that he would like to take her home, and he voiced that she will do better at home. 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 PLAN 1. Continue with Remeron 7.5 mg p.o. at bedtime. 2. Continue with Zyprexa p.r.n. p.o. 3. Supportive therapy. 4. Discussed with family member. Dictated by MICHEAL Castro Job#: [id number] GAU
--- NOTE | 2018-02-08 13:56 | Discharge Summary ---
DISCHARGE DIAGNOSES: 1. Acute abdomen status post duodenal ulceration requiring urgent surgery, status post duodenal ulcer repair performed by General Surgery. 2. Hypertension. 3. Hypokalemia. 4. Patient had perforated viscus and duodenal ulcer with peritonitis. 5. Patient had vagotomy with antrectomy with Gerhard-en-Y retrocolic reconstruction. SENIOR SUPPLY CHAIN ANALYST: General Surgery. VITAL SIGNS: Temperature is 98.7, pulse 93, respiratory rate is 18, blood pressure 154/67. She is saturating 95% on room air. LAB FINDINGS: Show white count of 13, hemoglobin 10.2, hematocrit is 31.5 platelets of 306. Coagulation: PT 12, INR 1, PTT 29.7. Chemistry: Sodium 135, potassium 3.6, chloride is 100, bicarb 23, anion gap of 15, creatinine is 0.8, glucose is 91, calcium 8.7. Troponins were negative. Her lipase was normal. Albumin was 2.1. LFTs were normal. Urinalysis had moderate bacteria, 6-10 WBCs, negative nitrite. MICROBIOLOGY: Urine cultures were negative. IMAGING STUDIES: Chest x-ray was negative. CT abdomen and pelvis showed moderate to large volume of free intraperitoneal air in the abdomen. There were multiple wedge compression deformities and severe L1 and L4 with loss of vertebral height. HOSPITAL COURSE: An 87-year-old female who came into the emergency room with complaints of severe abdominal pain, found to have an acute abdomen with intraperitoneal free air seen on CT imaging. General Surgery was consulted. Patient had stat emergent surgery in which the patient was taken to the OR. Procedure OR note shows the patient had exploratory laparotomy with vagotomy and antrectomy with Gerhard-en-Y retrocolic reconstruction of a perforated viscus found and a duodenal ulceration with peritonitis. Patient postoperatively went to the ICU and did extremely well. Initially she was n.p.o. with an NG tube. Then eventually nasogastric tube was removed. Started on clear-liquid diet, advanced to a regular in which she tolerated well. Patient worked with physical therapy and occupational therapy while in the hospital in which she improved well. Patient was cleared by General Surgery for discharge home. Psychiatry was consulted due to mood swings. It was felt that the patient had some adjustment disorder with mixed mood and was started on Remeron with much improvement. The patient was discharged on Remeron as well on discharge. Patient was cleared by both General Surgery and Psychiatry for discharge home. On the day of discharge vital signs stable, labs reviewed and stable. Patient seen and evaluated and examined thoroughly on the day of discharge with no other complaints. Patient verbalized understanding and agreed with plan of care, to follow up accordingly as an outpatient with the primary care physician in 1 week, general surgeon in 7 to 10 days. DISCHARGE MEDICATIONS: See med reconciliation form including Remeron 7.5 mg at bedtime. DISPOSITION: To home. CONDITION: Stable. DIET: Heart healthy. FOLLOWUP: With your primary care physician in 1 week, general surgery in 7 to 10 days, psychiatry as an outpatient in 2 weeks. In the event of any worsening symptoms, patient was advised to come back to the ED for further evaluation. Discharge summary took greater than 35 minutes. MILADY NUÑEZ MD Job#: [id number] EV
== END 2018-02-08 11:12 | disposition home health service (06) | DRG 326 ==
LOC: ER 06:12 → OR 15:11 → PACU V 15:55 → ICU 17:00 → MED/SURG 02-03 19:29
PROVIDERS: ADMIT Surgery; ATTEND Surgery
PROC: 0D160Z9 Bypass Stomach to Duodenum, Open Approach (ICD-10-PCS; 2018-01-30)
PROC: 008Q0ZZ Division of Vagus Nerve, Open Approach (ICD-10-PCS; 2018-01-30)
PROC: 0D1A0Z4 Bypass Jejunum to Cutaneous, Open Approach (ICD-10-PCS; 2018-01-30)
PROC: 0DB70ZZ Excision of Stomach, Pylorus, Open Approach (ICD-10-PCS; principal; 2018-01-30 12:30)
DX: K26.1 Acute duodenal ulcer with perforation (principal); K65.8 Other peritonitis; F32.1 Major depressive disorder, single episode, moderate; R10.0 Acute abdomen; F29 Unspecified psychosis not due to a substance or known physiological condition; F03.90 Unspecified dementia, unspecified severity, without behavioral disturbance, psychotic disturbance, mood disturbance, and anxiety; R53.81 Other malaise; G89.29 Other chronic pain; K59.00 Constipation, unspecified; E87.6 Hypokalemia; L89.151 Pressure ulcer of sacral region, stage 1; I10 Essential (primary) hypertension; Z79.1 Long term (current) use of non-steroidal anti-inflammatories (NSAID)
CPT/HCPCS: 36415; 36600; 51703; 71045; 74018; 74176; 80048; 80053; 81001; 82150; 82550; 82553; 82805; 82948; 83605; 83690; 84484; 85025; 85610; 85730; 86850; 86900; 87086; 88304; 88305; 88307; 88312; 93005; 96360; 96361; 97139; 99285; J0360; J0692; J0696; J1100; J1170; J1644; J2001; J2270; J2370; J2405; J2543; J3480; J7030; J7120

== ENCOUNTER → 2020-04-20 | Outpatient (CLI) | payer MEDICARE ==
[~2020-04-20] MED LIST changes: +DIATRIZOATE MEGL/DIATRIZOA SOD 30 ML BTL PO ONE; +IOPAMIDOL 370 MG/ML 200 ML INFUS..BTL INJ ONE; +LIDOCAINE PATCH 5% TD; +REMERON15 M1 PO; +SODIUM CHLORIDE 0.9% 50ML 50 ML ONE
[2020-04-20 08:26] LABS: CREATININE, SERUM 0.93 mg/dL (0.57-1.11)
--- NOTE | 2020-04-20 10:23 | Diagnostic Imaging Report ---
CT of the abdomen and pelvis, with contrast, 04/20/2020. History: Lower abdominal pain. Comparison: None available. Technique: Multidetector CT scanning of the abdomen and pelvis was performed from the level of the lung bases to the inferior pubic rami after intravenous and oral administration of contrast. Coronal and sagittal multiplanar reformations were obtained. RADIATION DOSE: Total DLP: 148 mGy*cm Dose modulation, iterative reconstruction, and/or weight based adjustment of the mA/kV was utilized to reduce the radiation dose to as low as reasonably achievable. Discussion: LUNG BASES: There is bibasilar atelectasis. ABDOMEN: There is diffuse anasarca. The liver, biliary tree, spleen, pancreas, adrenal glands, and kidneys are normal. The hepatic vein, portal vein, and splenic vein are patent. The gallbladder is not visible. The abdominal aorta is tortuous with focal dilatation infrarenally measuring up to 3.1 x 3.1 cm. There is diffuse atherosclerotic calcification of the abdominal aorta and pelvic and mesenteric vessels.. Postsurgical changes are present involving the stomach and small bowel. There is no bowel dilatation. Contrast is present extending through the colon. There is no evidence of adenopathy or free fluid. PELVIS: The bladder, uterus, and adnexa are not visible. There is no evidence of free fluid or adenopathy. BONES AND SOFT TISSUES: Multilevel anterior wedge compression deformities are present involving the lower thoracic and lumbar vertebral bodies, involving L1-L4. Left femoral IM caterina and screw are noted. IMPRESSION: 1. Diffuse anasarca. 2. Post surgical changes involving the stomach and small bowel without evidence of bowel obstruction. 3. Infrarenal abdominal aortic aneurysm measuring up to 3.1 cm. Recommend follow-up scan every 3 years. 4. Multiple thoracic and lumbar vertebral body compression deformities, age indeterminate. 5. Status post cholecystectomy and hysterectomy. Signed by: Ishmael Simental on 04/20/2020 10:20 AM
== END ==
LOC: CT 07:34
PROVIDERS: ATTEND Internal Medicine Gastroenterology
DX: R10.30 Lower abdominal pain, unspecified (principal)
CPT/HCPCS: 36415; 74177; 82565; 84520; Q9967

== ENCOUNTER 2020-05-26 15:30 | Emergency (ER) | payer MEDICARE ==
[~2020-05-26] VITALS: Ht 160 cm; Wt 54.9 kg
[~2020-05-26 15:30] MED LIST changes: -DIATRIZOATE MEGL/DIATRIZOA SOD 30 ML BTL PO ONE; -IOPAMIDOL 370 MG/ML 200 ML INFUS..BTL INJ ONE; -SODIUM CHLORIDE 0.9% 50ML 50 ML ONE
--- OUTSIDE RECORDS SUMMARY | 2020-05-26 15:58 | XMS REPORT | Continuity of Care Document ---
Author Author Karen efectivox, JESS Ramu Organization [facility] Address Unknown Phone Unavailable Care Team Providers Care Legislative Analyst Name Role Phone Seafile Information [facility] Unavailable Un available Problems Problem Status Onset Date Classification Date Reported Comments Source 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, LUMBAR REGION Active 11/02/2017 [place] N18.3 - "CHRONIC KIDNEY DISEASE, STAGE" Active 05/24/2016 [facility] [place] RADICULOPATHY, LUMBAR REGION A ctive [facility] Medications No Data Provided for This Section Allergies, Adverse Reactions, Alerts No Known Medication Allergies Immunizations No Data Provided for This Section Results No Data Provided for This Section Pathology Reports No Data Provided for This Section Diagnostic Reports Report Value Date Source Spine lumbar wo contrast MRI P atient Name: JESS SCHULZ : 1930; Age: 87 years y/o Female MR: [id number] Study: Spine lumbar wo contrast MRI 11/10/2017 5:41 PM CDT Clinical Indication: - M54.16 Radiculopathy, lumbar region; Comparison: None TECHNIQUE: Multiplanar T1, T2, STIR weighted noncontrast MRI of the lumbar spine is performed on the 1.5 Gema magnet. FINDINGS The conus medullaris is above L2/L3 disk space. Multilevel moderate compression deformities noted especially anterior wedging at T12 and L1 and L2 with mild to moderate central wedging compression deformities of L2, L3, and L4. Edema noted partially in L1 and L4 and possibly the anterior superior corner of L2 suggestion there is acute or subacute component. Question of extension into the posterior cortex. T10/T11: Negative evidence for central canal stenosis. No evidence of right neural foraminal stenosis. Negative evidence of left neural foraminal stenosis. T11/T12: Negative evidence for central canal stenosis. No evidence of right neural foraminal stenosis. Negative evidence of left neural foraminal stenosis. T12/L1: Mild diffuse bulge.. No evidence of right neural foraminal stenosis. Negative evidence of left neural foraminal stenosis. L1/2: Mild diffuse bulge No evidence of right neural foraminal stenosis. Negative evidence of left neural foraminal stenosis. L2/3: Negative evidence for central canal stenosis. No evidence of right neural foraminal stenosis. Negative evidence of left neural foraminal stenosis. L3/4: Mild bulge. No evidence of right neural foraminal stenosis. Negative evidence of left neural foraminal stenosis. L4/5: Negative evidence for central canal stenosis. No evidence of right neural foraminal stenosis. Negative evidence of left neural foraminal stenosis. L5/S1: Negative evidence for central canal stenosis. No evidence of right neural foraminal stenosis. Negative evidence of left neural foraminal stenosis. IMPRESSION: 1. Multilevel moderate compression defo rmities noted especially anterior wedging at T12 and L1 and L2 with mild to moderate central wedging compression deformities of L2, L3, and L4. Edema noted partially in L1 and L4 and possibly the anterior superior corner of L2 suggestion there is acute or subacute component. Question of extension into the posterior cortex. There is perivertebral and prevertebral edema/hemorrhage. Note there is a transitional vertebrae which was designated S1 on today's study. See detailed level by level analysis in the findings. Note, the above analysis and nomenclature has been adapted from Lumbar disc nomenclature: version 2.0 Recommendations of the combined task forces of the [place] [employer], the [place] [employer] of [employer]ine Radiology and the [place] Society of Neuroradiology, The Spine Journal 2014. SL: ZAYNAB 11/10/2017 [facility] Bladder US EXAM: Retroperitone al limited US, Bladder US HISTORY: N18.3 Chronic kidney disease, stage 3 (moderate) COMPARISON: None FINDINGS: Right kidney: Length and cortical thickness are 8.4 and 0.9 cm, respectively. No hydronephrosis, suspicious mass, or large shadowing calculus. Mild right pelviectasis. Left Kidney: Length and cortical thickness are 8.3 and 1.1 cm, respectively. No hydronephrosis, suspicious mass, or large shadowing calculus. Bladder: No wall thickening, mural nodularity, or suspicious intraluminal echoes are identified. Bilateral ureteral jets are patent. Vascular: Visualized portions of the IVC are patent. There is mild ectasia of the infrarenal abdominal aorta which measures 2.7 cm. The origins of the common iliac arteries are not seen sonographically. IMPRESSION: No acute abnormality. There is mild ectasia of the infrarenal abdominal aorta which measures 2.7 cm. 05/26/2016 [facility] [place] Retroperitoneal limited US EXA M: Retroperitoneal limited US, Bladder US HISTORY: N18.3 Chronic kidney disease, stage 3 (moderate) COMPARISON: None FINDINGS: Right kidney: Length and cortical thickness are 8.4 and 0.9 cm, respectively. No hydronephrosis, suspicious mass, or large shadowing calculus. Mild right pelviectasis. Left Kidney: Length and cortical thickness are 8.3 and 1.1 cm, respectively. No hydronephrosis, suspicious mass, or large shadowing calculus. Bladder: No wall thickening, mural nodularity, or suspicious intraluminal echoes are identified. Bilateral ureteral jets are patent. Vascular: Visualized portions of the IVC are patent. There is mild ectasia of the infrarenal abdominal aorta which measures 2.7 cm. The origins of the common iliac arteries are not seen sonographically. IMPRESSION: No acute abnormality. There is mild ectasia of the infrarenal abdominal aorta which measures 2.7 cm. 05/26/2016 [facility] [place] Consultation Notes No Data Provided for This Section Discharge Summaries No Data Provided for This Section History and Physicals No Data Provided for This Section Vital Signs No Data Provided for This Section Encounters Location Location Details Encounter Type Encounter Number Reason For Visit Attending Provider ADM Date DC Date Status Source [facility] - [place] [facility] [id number] 00 Camron Pandya 05/26/2016 05/27/2016 LE[facility] Ortez [facility] Outpatient [id number] Esteban Leyva 11/10/2017 11/11/2017 [facility] Procedures No Data Provided for This Section Assessment and Plan No Data Provided for This Section Plan of Care No Data Provided for This Section Social History Social History Date Source No data available for this section 11/11/2017 [facility] No data available for this section 05/27/2016 [facility] Ortez Family History No Data Provided for This Section Advance Directives No Data Provided for This Section Functional Status No Data Provided for This Section
--- OUTSIDE RECORDS SUMMARY | 2020-05-26 15:59 | XMS REPORT | Continuity of Care Document ---
Author Author [facility] t Organization [facility] Address [address] [place] [address] Phone Unavailable Care Team Providers Care Right Of Way Buyer Name Role Phone NO, PCP PCP Unavailable ERICKA CORNEJO Attphys Unavailable Aylin HOLLIS Attphys Unavailable Roberto Leyva Attphys DIONICIO, (NON STAFF) GARIMA Attphys Unavailable Kimani Pandya Attphys Aylin HOLLIS Admphys Unavailable Payers Payer Name Policy Type Policy Number Effective Date Expiration Date S ource Medicare A & B [id number] 1996 00:00:00 [facility] AARP [id number] [facility] Problems Condition Name Condition Details Condition Category Status Onset Date Resolution Date Last Treatment Date Treating Clinician Comments Source 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, 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, LUMBAR REGION Active 11/02/2017 [facility] Diagnosis A ctive 2017-11-02 00:00:00 2017-11-10 17:23:00 M luzmaria Harrell N18.3 - "CHRONIC KIDNEY DISEASE, STAGE" N18.3 - "CHRONIC KIDNEY DISEASE, STAGE" Active 05/24/2016 [facility] Active 2016-05-24 00:01:00 2016-05-26 13:21:00 M luzmraia Harrell Closed fracture of shaft of femur Fracture, femur closed, shaft Pro blem Active 2015-02-06 00:00:00 [facility] Perforated viscus Perforation of viscus Problem Active [facility] RADICULOPATHY, LUMBAR REGION R ADICULOPATHY, LUMBAR REGION Active [facility] Active 2017-11-10 17:23 :00 [facility] Allergies, Adverse Reactions, Alerts This patient has no known allergies or adverse reactions. Social History Social Habit Start Date Stop Date Quantity Comments Source Social History 2016-05-27 05:59:00 2016-05-27 05:59:00 [facility] Medications Ordered Medication Name Filled Medication Name Start Date Stop Da te Current Medication? Ordering Clinician Indication Dosage Frequency Signature (SIG) Comments Components Source Atorvastatin Calcium 40 Mg Tablet Atorvastatin Calcium 40 Mg Tablet Yes 1 Daily [facility] Lidocaine Patch 5% Lidocaine Patch 5% Yes 1 [facility] Mirtazapine (Remeron) 15 Mg Tab.rapdis Mirtazapine (Remeron) 15 Mg Tab.rapdis Yes 7.5 Bedtime [facility] Rivaroxaban (Xarelto) 10 Mg Tablet Rivaroxaban (Xarelto) 10 Mg Tablet Yes 1 Daily [facility] Simvastatin 40 Mg Tablet Simvastatin 40 Mg Tablet Yes 40 Bedtime [facility] Aspirin 81 Mg Tab.chew, 162 Mg Oral Aspirin 81 Mg Tab.chew, 162 Mg Oral 2018-02-08 00:00:00 No 162 Daily [facility] Acetaminophen With Codeine (Tylenol With Codeine #3 Tablet) 1 Each Tablet, 300 Mg Oral Acetaminophen With Codeine (Tylenol With Codeine #3 Tablet) 1 Each Tablet, 300 Mg Oral 2018-01-30 00:00:00 No 300 Daily as needed for Pain [facility] Cephalexin Monohydrate (Keflex) 500 Mg Capsule, 500 Mg Oral Cephalexin Monohydrate (Keflex) 500 Mg Capsule, 500 Mg Oral 2018-01-30 00:00:00 No 500 Twice A Day [facility] Diclofenac Sodium 50 Mg Tablet., 1 Mg Oral Diclofena c Sodium 50 Mg Tablet., 1 Mg Oral 2018-01-30 00:00:00 No 1 Bedtime [facility] Hydrocodone Bit/Acetaminophen ([place] 7.5-325 Tablet) 1 Each Tablet, 1-2 Mg Oral Hydrocodone Bit/Acetaminophen ([place]incy 7.5-325 Tablet) 1 Each Tablet, 1-2 Mg Oral 2018-01-30 00:00:00 No 1 Every 4-6 Hours as needed for Pain [facility] Rivaroxaban (Xarelto) 10 Mg Tablet, 10 Mg Oral Rivarox aban (Xarelto) 10 Mg Tablet, 10 Mg Oral 2015-02-10 00:00:00 No 10 Daily [facility] Atorvastatin Calcium 40 Mg Tablet, 40 Mg Oral Atorvast atin Calcium 40 Mg Tablet, 40 Mg Oral 2013-09-11 00:00:00 No 40 Daily [facility] Diclofenac Sodium 50 Mg Tablet., 50 Mg Oral Diclofen ac Sodium 50 Mg Tablet., 50 Mg Oral 2013-09-11 00:00:00 No 50 [facility] Procedures Procedure Date / Time Performed Performing Clinician Sour e Exploratory laparotomy 2018-01-30 00:00:00 SELINA HOLLIS [facility] CT of abdomen and pelvis without contrast 2018-01-30 00:00:00 KEN BRAY [facility] Encounters Start Date/Time End Date/Time Encounter Type Admission Type [facility] Care Department Encounter ID Source 2018-01-30 15:55:00 2018-02-08 11:12:00 Discharged Inpatient 1 SELINA HOLLIS [facility] [id number] [facility] 2017-11-10 16:30:00 2017-11-10 23:59:00 [id number] 2017-10-26 10:42:00 2017-10-26 10:42:00 Registered Clinic GARIMA HAYWOOD [facility] [id number] [facility] 2016-05-26 13:08:00 2016-05-26 23:59:00 Outpatient Charlie Pandya [facility] [id number] Results Test Description Test Time Test Comments Results Result Comments Source CT ABDOMEN/PELVIS W 2020-04-20 10:09:00 [place] [address] Patient Name: JESS SCHULZ MR #: [id number] : 1930 Age/Sex: 89/F Req #: [id number] [facility] Physician: Ordered by: ERICKA CORNEJO MD Report #: [id number] Location: CT Room/Bed: Procedure: [id number] CT/CT ABDOMEN/PELVIS W Exam Date: 04/20/20 Exam Time: 0854 REPORT STATUS: Signed CT of the abdomen and pelvis, with contrast, 04/20/2020. History: Lower abdominal pain. Comparison: None available. Technique: Multidetector CT scanning of the abdomen and pelvis was performed from the level of the lung bases to the inferior pubic rami after intravenous and oral administration of contrast. Coronal and sagittal multiplanar reformations were obtained. RADIATION DOSE: Total DLP: 148 mGy*cm Dose modulation, iterative reconstruction, and/or weight based adjustment of the mA/kV was utilized to reduce the radiation dose to as low as reasonably achievable. Discussion: LUNG BASES: There is bibasilar atelectasis. ABDOMEN: There is diffuse anasarca. The liver, biliary tree, spleen, pancreas, adrenal glands, and kidneys are normal. The hepatic vein, portal vein, and splenic vein are patent. The gallbladder is not visible. The abdominal aorta is tortuous with focal dilatation infrarenally measuring up to 3.1 x 3.1 cm. There is diffuse atherosclerotic calcification of the abdominal aorta and pelvic and mesenteric vessels.. Postsurgical changes are present involving the stomach and small bowel. There is no bowel dilatation. Contrast is present extending through the colon. There is no evidence of adenopathy or free fluid. PELVIS: The bladder, uterus, and adnexa are not visible. There is no evidence of free fluid or adenopathy. BONES AND SOFT TISSUES: Multilevel anterior wedge compression deformities are present involving the lower thoracic and lumbar vertebral bodies, involving L1-L4. Left femoral IM caterina and screw are noted. IMPRESSION: 1. Diffuse anasarca. 2. Post surgical changes involving the stomach and small bowel without evidence of bowel obstruction. 3. Infrarenal abdominal aortic aneurysm measuring up to 3.1 cm. Recommend follow-up scan every 3 years. 4. Multiple thoracic and lumbar vertebral body compression deformities, age indeterminate. 5. Status post cholecystectomy and hysterectomy. Signed by: Ishmael Simental on 04/20/2020 10:20 AM Dictated By: ISHMAEL SIMENTAL MD 1020 Transcribed By: VINICIUS on 04/20/20 1020 COPY TO: ERICKA CORNEJO MD Sodium Level 2018-02-07 12:07:00 Test Item Sodium Level (test code = 2951-2) 135 136-145 L [facility]Potassium Pawjr1138-90-26 12:07:00* Test Item Value Reference Range Interpretation Comments Potassium Level (test code = 2823-3) 3.6 3.5-5.1 [facility] HospitalChloride Yoelv6418-89-63 12:07:00* Test Item Value Reference Range Interpretation Comments Chloride Level (test code = 2075-0) 100 98-107 [facility] HospitalCarbon Dioxide Dadlx5729-38-55 12:07:00* Test Item Value Reference Range Interpretation Comments Carbon Dioxide Level (test code = 2028-9) 23 22-29 [facility] HospitalAnion Bly3761-35-65 12:07:00* Test Item Value Reference Range Interpretation Comments Anion Gap (test code = 10037-7) 15.6 8-16 [facility] HospitalBlood Urea Onxbqnaz2573-13-24 12:07:00* Test Item Value Reference Range Interpretation Comments Blood Urea Nitrogen (test code = 3094-0) 17 7-26 [facility] HospitalCreatinine2018-08-01 12:07:00* Test Item Value Reference Range Interpretation Comments Creatinine (test code = 2160-0) 0.80 0.57-1.11 [facility] HospitalBUN/Creatinine Pveol8178-17-94 12:07:00* Test Item Value Reference Range Interpretation Comments BUN/Creatinine Ratio (test code = 3097-3) 21 6-25 [facility] HospitalEstimat Glomerular Filtration Rate 2018-02-07 12:07:00* Test Item Value Reference Range Interpretation Comments Estimat Glomerular Filtration Rate (test code = 59031-9) 60- >60 Ranges were taken from the National Kidney Disease Education Program and the [facility] Foundation literature.Reference ranges:60 or greater: Pcusbh91-65 ( for 3 consecutive months): Chronic kidney disease 15 or less: Kidney failureNortheast Baptist HospitalGlucose Sroml4512-00-95 12:07:00* Test Item Value Reference Range Interpretation Comments Glucose Level (test code = QLO4216) 91 74-118 [facility] HospitalCalcium Kixus6082-43-27 12:07:00* Test Item Value Reference Range Interpretation Comments Calcium Level (test code = 99724-3) 8.7 8.4-10.2 [facility] HospitalWhite Blood Bqmmx1846-83-82 11:49:00* Test Item Value Reference Range Interpretation Comments White Blood Count (test code = 6690-2) 13.12 4.8-10.8 H [facility] HospitalRed Blood Kyocn0770-36-95 11:49:00* Test Item Value Reference Range Interpretation Comments Red Blood Count (test code = 789-8) 3.31 3.6-5.1 L [facility] HospitalHemoglobin2018-08-01 11:49:00* Test Item Value Reference Range Interpretation Comments Hemoglobin (test code = 37673-3) 10.2 12.0-16.0 L [facility] HospitalHematocrit2018-08-01 11:49:00* Test Item Value Reference Range Interpretation Comments Hematocrit (test code = 4544-3) 31.5 34.2-44.1 L [facility] HospitalMean Corpuscular Wchfjq4272-65-35 11:49:00* Test Item Value Reference Range Interpretation Comments Mean Corpuscular Volume (test code = 787-2) 95.2 81-99 [facility] HospitalMean Corpuscular Mgnswqnbvy5330-99-77 11:49:00* Test Item Value Reference Range Interpretation Comments Mean Corpuscular Hemoglobin (test code = 785-6) 30.8 28-32 [facility] HospitalMean Corpuscular Hemoglobin Concent 2018-02-07 11:49:00* Test Item Value Reference Range Interpretation Comments Mean Corpuscular Hemoglobin Concent (test code = 786-4) 32.4 31-35 [facility] HospitalRed Cell Distribution Bebby3315-65-98 11:49:00* Test Item Value Reference Range Interpretation Comments Red Cell Distribution Width (test code = 10067-9) 13.8 11.7 -14.4 [facility] HospitalPlatelet Xuziq2303-76-91 11:49:00* Test Item Value Reference Range Interpretation Comments Platelet Count (test code = 777-3) 306 140-360 [facility] HospitalNeutrophils (%) (Auto)2018-02-07 11:49:00 * Test Item Value Reference Range Interpretation Comments Neutrophils (%) (Auto) (test code = 37147-9) 78.7 38.7-80.0 [facility] HospitalLymphocytes (%) (Auto)2018-02-07 11:49:00 * Test Item Value Reference Range Interpretation Comments Lymphocytes (%) (Auto) (test code = 736-9) 7.0 18.0-39.1 L [facility] HospitalMonocytes (%) (Auto)2018-02-07 11:49:00* Test Item Value Reference Range Interpretation Comments Monocytes (%) (Auto) (test code = 5905-5) 7.2 4.4-11.3 [facility] HospitalEosinophils (%) (Auto)2018-02-07 11:49:00 * Test Item Value Reference Range Interpretation Comments Eosinophils (%) (Auto) (test code = 713-8) 6.1 0.0-6.0 H [facility] HospitalBasophils (%) (Auto)2018-02-07 11:49:00* Test Item Value Reference Range Interpretation Comments Basophils (%) (Auto) (test code = 706-2) 0.5 0.0-1.0 [facility] HospitalIM GRANULOCYTES %2018-02-07 11:49:00* Test Item Value Reference Range Interpretation Comments IM GRANULOCYTES % (test code = IM GRANULOCYTES %) 0.5 0.0- 1.0 [facility] HospitalNeutrophils # (Auto)2018-02-07 11:49:00* Test Item Value Reference Range Interpretation Comments Neutrophils # (Auto) (test code = 751-8) 10.3 2.1-6.9 H [facility] HospitalLymphocytes # (Auto)2018-02-07 11:49:00* Test Item Value Reference Range Interpretation Comments Lymphocytes # (Auto) (test code = 74147-3) 0.9 1.0-3.2 L [facility] HospitalMonocytes # (Auto)2018-02-07 11:49:00* Test Item Value Reference Range Interpretation Comments Monocytes # (Auto) (test code = 742-7) 1.0 0.2-0.8 H [facility] HospitalEosinophils # (Auto)2018-02-07 11:49:00* Test Item Value Reference Range Interpretation Comments Eosinophils # (Auto) (test code = 711-2) 0.8 0.0-0.4 H [facility] HospitalBasophils # (Auto)2018-02-07 11:49:00* Test Item Value Reference Range Interpretation Comments Basophils # (Auto) (test code = 704-7) 0.1 0.0-0.1 [facility] HospitalAbsolute Immature Granulocyte (auto 2018-02-07 11:49:00* Test Item Value Reference Range Interpretation Comments Absolute Immature Granulocyte (auto (marika t code = Absolute Immature Granulocyte (auto) 0.07 0-0.1 [facility] HospitalBedside Kpdruqw2375-86-90 16:54:00* Test Item Value Reference Range Interpretation Comments Bedside Glucose (test code = 76530-0) 134 70-120 H Meter ID: [id number] Baptist HospitalCHEST SINGLE (PORTABLE)2018-02-03 06:32:00 [place] [id number] [place] [address] Patient Name: JESS SCHULZ MR #: [id number] : 1930 Age/Sex: 87/F Req #: [id number] Adm Physician: SELINA HOLLIS MD Ordered by: SELINA HOLLIS MD Report #: [id number] Location: ICU Room/Bed: ICU [facility] Procedure: [id number] DX/CHEST SINGLE (PORTABLE) Exam Date: 02/03/18 Exam Time: 529 REPORT STATUS: Signed EXAM: CHEST SINGLE (PORTABLE), AP 1 vi ew INDICATION: CVP COMPARISON: AP view of the chest February 02, 2018 FINDI NGS: LINES/TUBES: Stable right neck central line. Interval removal of nasal/ orogastric tube. LUNGS: Stable left retrocardiac opacification. PLEUR A: Small to moderate left pleural effusion. HEART AND MEDIASTINUM: Stable a ppearance BONES AND SOFT TISSUES: No acute findings. IMPRESSION: No significant interval change. Signed by: Dr. Becky Bourgeois M.D. on 02/03/2018 6:33 AM Dictated By: BECKY BOURGEOIS MD 2 Transcribed By: VINICIUS on 02/03/18632 COPY TO: SELINA HOLLIS MD CHEST SINGLE (PORTABLE)2018-02-02 06:45:00 [place] [address] Patient Name: JESS SCHULZ MR #: [id number] : 1930 Age/Sex: 87/F Req #: [id number] Adm Physician: SELINA HOLLIS MD Ordered by: SELINA HOLLIS MD Report #: [id number] Location: ICU Room/Bed: ICU [facility] Procedure: [id number] DX/CHEST SINGLE (PORTABLE) Exam Date: 02/02/18 Exam Time: 529 REPORT STATUS: Signed EXAM: CHEST SINGLE (PORTABLE), AP 1 vi ew INDICATION: CVP COMPARISON: AP view of the chest February 02, 2018 FINDI NGS: LINES/TUBES: Stable right internal jugular vein central line and nasal/ orogastric tube. LUNGS: Stable left retrocardiac opacification and mild int erstitial thickening. PLEURA: Questionable left pleural effusion. H EART AND MEDIASTINUM: Stable appearance. BONES AND SOFT TISSUES: No acute f indings. IMPRESSION: No interval change. Signed by: Dr. Becky Bourgeois M.D. on 02/02/2018 6:46 AM Dictated By: BECKY BOURGEOIS MD El ectronically Signed By: BECKY BOURGEOIS MD on 02/02/18645 Transcribed By: CLEMENTE GAYTAN on 02/02/18645 COPY TO: SELINA HOLLIS MD Total Bilirubin 2018-02-02 05:16:00* Test Item Value Reference Range Interpretation Comments Total Bilirubin (test code = 1975-2) 0.5 0.2-1.2 [facility] HospitalAspartate Amino Transf (AST/SGOT) 2018-02-02 05:16:00* Test Item Value Reference Range Interpretation Comments Aspartate Amino Transf (AST/SGOT) (test code = Aspartate Amino Transf (AST/SGOT)) 33 5-34 [facility] HospitalAlanine Aminotransferase (ALT/SGPT) 2018-02-02 05:16:00* Test Item Value Reference Range Interpretation Comments Alanine Aminotransferase (ALT/SGPT) (test code = 1742-6) 43 0-55 [facility] HospitalTotal Autpsre9944-29-54 05:16:00* Test Item Value Reference Range Interpretation Comments Total Protein (test code = 2885-2) 4.4 6.5-8.1 L [facility] HospitalAlbumin2018-07-27 05:16:00* Test Item Value Reference Range Interpretation Comments Albumin (test code = 1751-7) 2.1 3.5-5.0 L [facility] HospitalGlobulin2018-07-27 05:16:00* Test Item Value Reference Range Interpretation Comments Globulin (test code = 21269-0) 2.3 2.3-3.5 [facility] HospitalAlbumin/Globulin Jxjvz0670-08-98 05:16:00 * Test Item Value Reference Range Interpretation Comments Albumin/Globulin Ratio (test code = 1759-0) 0.9 0.8-2.0 [facility] HospitalAlkaline Dhqkcgannvy5825-38-68 05:16:00* Test Item Value Reference Range Interpretation Comments Alkaline Phosphatase (test code = 6768-6) 53 40-150 [facility] HospitalCHEST SINGLE (PORTABLE)2018-02-01 05:58:00 [facility] [address] [place] [address] Patient Name: JESS SCHULZ MR #: [id number] : 1930 Age/Sex: 87/F Req #: [id number] Adm Physician: SELINA HOLLIS MD Ordered by: SELINA HOLLIS MD Report #: [id number] Location: ICU Room/Bed: ICU [facility] Procedure: [id number] DX/CHEST SINGLE (PORTABLE) Exam Date: 02/01/18 Exam Time: 0505 REPORT STATUS: Signed EXAM: CHEST SINGLE (PORTABLE), AP 1 vi ew INDICATION: CVP COMPARISON: AP view of the chest January 30, 2018 FINDI NGS: LINES/TUBES: Stable right internal jugular vein central line and nasal/ orogastric tube. LUNGS: Stable left retrocardiac opacification and mild int erstitial thickening. PLEURA: No effusions or pneumothorax. HEART A ND MEDIASTINUM: Stable appearance BONES AND SOFT TISSUES: No acute findings . IMPRESSION: No interval change Signed by: Dr. Becky hughes M.D. on 02/01/2018 5:59 AM Dictated By: BECKY BOURGEOIS MD Electronic ally Signed By: BECKY BOURGEOIS MD on 02/01/18558 Transcribed By: VINICIUS on 558 COPY TO: SELINA HOLLIS MD Differential Total Cells Swyglra5773-82-07 06:31:00* Test Item Value Reference Range Interpretation Comments Differential Total Cells Counted (test code = Differjorge tial Total Cells Counted) 100 [facility] HospitalNeutrophils % (Manual)2018-01-31 06:31:00 * Test Item Value Reference Range Interpretation Comments Neutrophils % (Manual) (test code = 08880-2) 85 40-74 H [facility] HospitalBand Neutrophils %2018-01-31 06:31:00* Test Item Value Reference Range Interpretation Comments Band Neutrophils % (test code = 764-1) 9 [facility] HospitalLymphocytes % (Manual)2018-01-31 06:31:00 * Test Item Value Reference Range Interpretation Comments Lymphocytes % (Manual) (test code = 737-7) 1 19-48 L [facility] HospitalMonocytes % (Manual)2018-01-31 06:31:00* Test Item Value Reference Range Interpretation Comments Monocytes % (Manual) (test code = 744-3) 5 3.4-9.0 [facility] HospitalPlatelet Abogvdwb3645-97-21 06:31:00* Test Item Value Reference Range Interpretation Comments Platelet Estimate (test code = 25362-8) ADEQUATE [facility] HospitalPlatelet Morphology Wkwsrcy3057-96-61 06:31:00* Test Item Value Reference Range Interpretation Comments Platelet Morphology Comment (test code = 62116-0) NORMAL [facility] HospitalRed Cell Morphology Qyakiwf7455-90-85 06:31:00* Test Item Value Reference Range Interpretation Comments Red Cell Morphology Comment (test code = 6742-1) NORMAL [facility] HospitalLactic Acid Vxdiw4577-39-08 05:10:00* Test Item Value Reference Range Interpretation Comments Lactic Acid Level (test code = Lactic Acid Level) 11.5 4.5- 19.8 [facility] HospitalAmylase Wthpq5593-05-10 05:10:00* Test Item Value Reference Range Interpretation Comments Amylase Level (test code = 1798-8) 57 25-125 [facility] HospitalArterial Blood mO3881-33-81 01:59:00* Test Item Value Reference Range Interpretation Comments Arterial Blood pH (test code = 2744-1) 7.28 7.31-7.41 L [facility] HospitalArterial Blood Partial Pressure CO2 2018-01-31 01:59:00* Test Item Value Reference Range Interpretation Comments Arterial Blood Partial Pressure CO2 (test code = 2019-8) 48 41-51 [facility] HospitalArterial Blood Partial Pressure O2 2018-01-31 01:59:00* Test Item Value Reference Range Interpretation Comments Arterial Blood Partial Pressure O2 (test code = 2018-8) 90 80-105 [facility] HospitalArterial Blood VBX22796-06-74 01:59:00* Test Item Value Reference Range Interpretation Comments Arterial Blood HCO3 (test code = 1960-4) 22 23-28 L [facility] HospitalArterial Blood Base Bhdjqe9145-02-50 01:59:00* Test Item Value Reference Range Interpretation Comments Arterial Blood Base Excess (test code = 1925-7) -5.0 -2-3 L [facility] HospitalArterial Blood Oxygen Saturation 2018-01-31 01:59:00* Test Item Value Reference Range Interpretation Comments Arterial Blood Oxygen Saturation (test code = 2708-6) 96.0 95-98 [facility] 2018-01-30 17:08:00 [facility] [address] [place] [address] Patient Name: JESS SCHULZ MR #: [id number] : 1930 Age/Sex: 87/F Req #: [id number] Adm Physician: SELINA HOLLIS MD Ordered by: LAZARO MERCADO MD Report #: [id number] Location: PACU V Room/Bed: V PACU-1 Procedure: [id number] DX/CHEST SINGLE (PORTABLE) Exam Date: 01/30/18 Exam Time: 1552 REPORT STATUS: Signed PROCEDURE: A single AP view of the c hest. COMPARISON: [facility], DX, CHEST SINGLE (PORTABLE), 09/10/2013, 11:17. INDICATIONS: FALL FINDINGS: Lines/tubes: Enteric tube has distal tip projecting in the stomach fundus/body and proxima l side port likely in the proximal fundus. Right sided central line has distal tip projecting in the proximal to mid SVC. Lungs: The lungs are well-i nflated. Bilateral perihilar interstitial opacities. Increased retrocardiac d ensity with near total obscuration of the left hemidiaphragm Pleura: No right effusion, or a pneumothorax. Heart and mediastinum: Mildly prominent cardiac silhouette, which may be partly due to AP projection. Central pulmo nary venous congestion Bones: No acute bony abnormality. IMPRESSION : 1. central pulmonary venous congestion and bilateral perihilar inter stitial edema. 2. Increased retrocardiac density with near total obscuration o f the left hemidiaphragm may represent left pleural effusion and associated compressive atelectasis or consolidation. Hiren Rodriguez M.D. Dictated by: Hiren Rodriguez M.D. on 01/30/2018 at 17:08 Electronic ally approved by: Hiren Rodriguez M.D. on 01/30/2018 at 17:08 Dictated By: HIREN RODRIGUEZ MD 07 Transcribed By: CARRILLO on 01/30/181707 COPY TO: LAZARO HSIEH MD ABDOMEN-1VIEW ([facility])2018-01-30 11:41:00 [place] [address] Patient Name: JESS SCHULZ MR #: [id number] : 1930 Age/Sex: 87/F Req #: [id number] Adm Physician: Ordered by: SELINA HOLLIS MD Report #: [id number] Location: ER Room/Bed: Procedure: [id number] DX/ABDOMEN-1VIEW ([facility]) Exam D ate: 01/30/18 Exam Time: 1040 REPORT STATUS: Si gned PROCEDURE: ABDOMEN-1VIEW ([facility]) COMPARISON: CT abdomen/pelvis 01/08. INDICATIONS: NASOGASTRIC TUBE PLACEMENT FINDINGS: Motion artifact limits evaluation. No NG tube is identified on this radiograph. Upp er abdomen is partially excluded from the field of view. Please refer to same day CT for details of intraperitoneal air. Air filled colonic loops measuring up to 8.8 cm are noted. Degenerative changes of the lower lumbar spine with loss of vertebral body heights, better characterized on same day CT. Conclusion: No NG tube is identified on KUB. Consider chest radiograph to eval uate for potential NG tube position in the thorax. Please refer to owen CT for details of intraperitoneal air. Air filled colonic loops are not ed. Dictated by: DEVONTE AGUIRRE M.D. on 01/30/2018 at 11:41 Electronic ally approved by: DEVONTE AGUIRRE M.D. on 01/30/2018 at 11:41 Dictate d By: DEVONTE AGUIRRE MD 1141 T ranscribed By: CARRILLO on 01/30/18 1141 COPY TO: SELINA HOLLIS MD CT ABDOMEN/PELVIS [id number] 08:51:00 [place] [address] Patient Name: JESS SCHULZ MR #: [id number] : 1930 Age/Sex: 87/F Req #: [id number] Adm Physician: Ordered by: KEN GUERRERO MD Report #: [id number] Location: ER Room/Bed: Procedure: [id number] CT/CT ABDOMEN/PELVIS WO Exam Da te: 01/30/18 Exam Time: 0800 REPORT STATUS: Sig richar PROCEDURE: CT ABDOMEN AND PELVIS WITHOUT CONTRAST TECHNIQUE: The abdomen and pelvis were scanned utilizing a multidetector helical scanner fr om the diaphragm to the lesser trochanter with administration of oral contras t. No IV contrast was administered per protocol request. Coronal and sagitta l multiplanar reformations were obtained. COMPARISON: Lumbar spine radio graphs 10/26/17. INDICATIONS: ABDOMINAL PAIN FINDINGS: ABSENC E OF INTRAVENOUS CONTRAST DECREASES SENSITIVITY FOR DETECTION OF FOCAL LESION S AND VASCULAR PATHOLOGY. LOWER THORAX: Coronary atherosclerosis. Severe e mphysematous changes of the lungs. Patchy opacities at the left lung base. Ca lcified granuloma in the left lower lobe. Bronchial wall thickening. H EPATOBILIARY: Multiple calcified granulomas in the liver. No other focal hepa tic lesions. No biliary ductal dilatation. SPLEEN: No splenomegaly. Multiple calcified granulomas. PANCREAS: No focal masses or ductal dilatation. A DRENALS: No adrenal nodules. KIDNEYS/URETERS: No hydronephrosis, stones, or so lid mass lesions. PELVIC ORGANS/BLADDER: Unremarkable. PERITONEUM / RETR OPERITONEUM: Moderate to large volume free intraperitoneal air in the abdomen , most pronounced in the upper abdomen in perihepatic location and left upper quadrant. No source of perforated viscous identified. Small amount of free fluid in the abdomen. LYMPH NODES: No lymphadenopathy. VESSELS: Extensiv e atherosclerotic calcifications of the abdominal aorta and branch vessels. I nfrarenal abdominal aortic aneurysm measuring up to 2.8 cm. GI TRACT: No distention or wall thickening. No evidence of bowel obstruction. SAVANA KATIE AND SOFT TISSUES: Unremarkable. Severe wedge compression deformities of L 1 and L4 with loss of approximately 75 percent of vertebral body height. Ther e has been interval loss of vertebral body height at L4 compared to radiograp h on 10/26/17. Moderate wedge compression deformity of T12 and L2 with loss o f approximately 50 percent of vertebral body height. Posterior fracture defor mity at L2 with mild central canal narrowing. Mild wedge compression deformit y of T11 with loss of 25 percent of vertebral body height. Mild retrolisth esis of L1 on L2. Degenerative changes of the lumbar spine. Status post left total hip arthroplasty. IMPRESSION: Moderate to large volume free i ntraperitoneal air, most pronounced in the upper abdomen. Site of perforated viscous is not identified. Multiple wedge compression deformities, severe at L1 and L4 with loss of vertebral body height at L4 compared to radiograph on 10/26/17. Moderate compression deformity at L2 with posterior fracture def ormity, resulting in mild central canal narrowing. Findings di scussed with ED Dr. Preciado on 01/30/18 at 848 AM. Dictated by: DEVONTE Santo M.D. on 01/30/2018 at 8:51 Electronically approved by: Sherrill BOSTON on 01/30/2018 at 8:51 Dictated By: DEVONTE AGUIRRE MD Transcribed By: CARRILLO on 01/30/18 08 51 COPY TO: KEN GUERRERO MD Urine LBC1110-18-21 07:49:00* Test Item Value Reference Range Interpretation Comments Urine WBC (test code = 5821-4) 6-10 0-5 [facility] [id number] 07:49:00* Test Item Value Reference Range Interpretation Comments Urine RBC (test code = 38062-2) 0-5 0-5 [facility] Cctqgujj4520-36-33 07:49:00* Test Item Value Reference Range Interpretation Comments Urine Bacteria (test code = 66049-7) MODERATE NONE [facility] Epithelial Czmly3696-42-19 07:49:00 * Test Item Value Reference Range Interpretation Comments Urine Epithelial Cells (test code = 48810-1) MODERATE NONE [facility] Transitional Epithelial Cells 2018-01-30 07:49:00* Test Item Value Reference Range Interpretation Comments Urine Transitional Epithelial Cells (test code = 8249-5) RARE NONE [facility] Hyaline Vsbrm2529-18-59 07:49:00* Test Item Value Reference Range Interpretation Comments Urine Hyaline Casts (test code = 97451-5) 2-5 0-1 [facility] [id number] 07:49:00* Test Item Value Reference Range Interpretation Comments Urine WBC (test code = 5821-4) 6-10 0-5 [facility] [id number] 07:49:00* Test Item Value Reference Range Interpretation Comments Urine RBC (test code = 90896-2) 0-5 0-5 [facility] Jppjbsft0745-63-25 07:49:00* Test Item Value Reference Range Interpretation Comments Urine Bacteria (test code = 18201-0) MODERATE NONE [facility] Epithelial Auxxi7799-59-08 07:49:00 * Test Item Value Reference Range Interpretation Comments Urine Epithelial Cells (test code = 71599-0) MODERATE NONE [facility] Transitional Epithelial Cells 2018-01-30 07:49:00* Test Item Value Reference Range Interpretation Comments Urine Transitional Epithelial Cells (test code = 8249-5) RARE NONE [facility] Hyaline Izjuz9771-51-60 07:49:00* Test Item Value Reference Range Interpretation Comments Urine Hyaline Casts (test code = 69270-7) 2-5 0-1 [facility] EWT3423-73-12 07:49:00* Test Item Value Reference Range Interpretation Comments Urine WBC (test code = 5821-4) 6-10 0-5 [facility] JPI3023-23-52 07:49:00* Test Item Value Reference Range Interpretation Comments Urine RBC (test code = 65093-4) 0-5 0-5 [facility] Jsijetnu9732-35-72 07:49:00* Test Item Value Reference Range Interpretation Comments Urine Bacteria (test code = 15853-1) MODERATE NONE [facility] Epithelial Xekuf3276-29-76 07:49:00 * Test Item Value Reference Range Interpretation Comments Urine Epithelial Cells (test code = 75650-6) MODERATE NONE [facility] Transitional Epithelial Cells 2018-01-30 07:49:00* Test Item Value Reference Range Interpretation Comments Urine Transitional Epithelial Cells (test code = 8249-5) RARE NONE [facility] Hyaline Pdrvt2752-51-38 07:49:00* Test Item Value Reference Range Interpretation Comments Urine Hyaline Casts (test code = 43172-9) 2-5 0-1 [facility] Fijrb5581-12-00 07:44:00* Test Item Value Reference Range Interpretation Comments Urine Color (test code = 5778-6) YELLOW YELLOW [facility] Ecnewbb8898-18-10 07:44:00* Test Item Value Reference Range Interpretation Comments Urine Clarity (test code = 65222-9) CLOUDY CLEAR [facility] Specific Hynxqqi1589-40-17 07:44:00 * Test Item Value Reference Range Interpretation Comments Urine Specific Griffin (test code = 5811-5) 1.030 1.010-1.02 5 H [facility] aX2469-63-45 07:44:00* Test Item Value Reference Range Interpretation Comments Urine pH (test code = 09562-7) 6 5-7 [facility] Leukocyte Qqhzsmib5084-73-84 07:44:00* Test Item Value Reference Range Interpretation Comments Urine Leukocyte Esterase (test code = 5799-2) NEGATIVE NEGATIVE [facility] Gdgkgcs8184-14-95 07:44:00* Test Item Value Reference Range Interpretation Comments Urine Nitrite (test code = 40620-0) NEGATIVE NEGATIVE [facility] Mwxvfce9717-17-68 07:44:00* Test Item Value Reference Range Interpretation Comments Urine Protein (test code = 5804-0) 2+ NEGATIVE H [facility] Glucose (UA)2018-01-30 07:44:00* Test Item Value Reference Range Interpretation Comments Urine Glucose (UA) (test code = 2349-9) NEGATIVE NEGATIVE [facility] Kdbltdd5422-87-04 07:44:00* Test Item Value Reference Range Interpretation Comments Urine Ketones (test code = 70566-6) TRACE NEGATIVE H [facility] Mzkqgacnizhd8602-64-84 07:44:00* Test Item Value Reference Range Interpretation Comments Urine Urobilinogen (test code = 32680-7) 0.2 0.2-1 [facility] Hkscnjkjv1257-73-40 07:44:00* Test Item Value Reference Range Interpretation Comments Urine Bilirubin (test code = 1978-6) 1+ NEGATIVE H [facility] Pmcla3353-13-54 07:44:00* Test Item Value Reference Range Interpretation Comments Urine Blood (test code = 13349-0) 1+ NEGATIVE [facility] Cbptf9298-20-90 07:44:00* Test Item Value Reference Range Interpretation Comments Urine Color (test code = 5778-6) YELLOW YELLOW [facility] Vxejspz5461-53-34 07:44:00* Test Item Value Reference Range Interpretation Comments Urine Clarity (test code = 39146-8) CLOUDY CLEAR [facility] Specific Xihrtqv8675-95-37 07:44:00 * Test Item Value Reference Range Interpretation Comments Urine Specific [place] (test code = 5811-5) 1.030 1.010-1.02 5 H [facility] [id number] 07:44:00* Test Item Value Reference Range Interpretation Comments Urine pH (test code = 97703-6) 6 5-7 [facility]ukocyte Zphnbuup6846-00-38 07:44:00* Test Item Value Reference Range Interpretation Comments Urine Leukocyte Esterase (test code = 5799-2) NEGATIVE NEGATIVE [facility] Vuovmhf2499-19-57 07:44:00* Test Item Value Reference Range Interpretation Comments Urine Nitrite (test code = 65153-7) NEGATIVE NEGATIVE [facility] Pbhkgnu1369-51-01 07:44:00* Test Item Value Reference Range Interpretation Comments Urine Protein (test code = 5804-0) 2+ NEGATIVE [facility] Glucose (UA)2018-01-30 07:44:00* Test Item Value Reference Range Interpretation Comments Urine Glucose (UA) (test code = 2349-9) NEGATIVE NEGATIVE [facility] Qkwjzfr2050-94-18 07:44:00* Test Item Value Reference Range Interpretation Comments Urine Ketones (test code = 37342-5) TRACE NEGATIVE H [facility] Rbzqumogkvxp3612-69-51 07:44:00* Test Item Value Reference Range Interpretation Comments Urine Urobilinogen (test code = 34734-7) 0.2 0.2-1 [facility] Nleyytqpd0017-52-19 07:44:00* Test Item Value Reference Range Interpretation Comments Urine Bilirubin (test code = 1978-6) 1+ NEGATIVE [facility] Kaleu1676-36-94 07:44:00* Test Item Value Reference Range Interpretation Comments Urine Blood (test code = 53781-3) 1+ NEGATIVE [facility] Agyxq1735-28-78 07:44:00* Test Item Value Reference Range Interpretation Comments Urine Color (test code = 5778-6) YELLOW YELLOW [facility] Sxrewtd6262-55-53 07:44:00* Test Item Value Reference Range Interpretation Comments Urine Clarity (test code = 30244-6) CLOUDY CLEAR H [facility] Specific Lzcaaka1942-32-14 07:44:00 * Test Item Value Reference Range Interpretation Comments Urine Specific Griffin (test code = 5811-5) 1.030 1.010-1.02 5 H [facility] [id number] 07:44:00* Test Item Value Reference Range Interpretation Comments Urine pH (test code = 19120-7) 6 5-7 [facility] Leukocyte Pkgurluy9419-95-96 07:44:00* Test Item Value Reference Range Interpretation Comments Urine Leukocyte Esterase (test code = 5799-2) NEGATIVE NEGATIVE [facility] Sggakws4340-29-79 07:44:00* Test Item Value Reference Range Interpretation Comments Urine Nitrite (test code = 30621-0) NEGATIVE NEGATIVE [facility] Mcphxcn6805-03-12 07:44:00* Test Item Value Reference Range Interpretation Comments Urine Protein (test code = 5804-0) 2+ NEGATIVE [facility] Glucose (UA)2018-01-30 07:44:00* Test Item Value Reference Range Interpretation Comments Urine Glucose (UA) (test code = 2349-9) NEGATIVE NEGATIVE [facility] Revqbau4810-27-55 07:44:00* Test Item Value Reference Range Interpretation Comments Urine Ketones (test code = 43587-7) TRACE NEGATIVE H [facility] Dfeyoqfkclyw3480-00-81 07:44:00* Test Item Value Reference Range Interpretation Comments Urine Urobilinogen (test code = 79377-5) 0.2 0.2-1 [facility] Cgjqgwxai7320-94-38 07:44:00* Test Item Value Reference Range Interpretation Comments Urine Bilirubin (test code = 1978-6) 1+ NEGATIVE [facility] Yvwhy0915-40-50 07:44:00* Test Item Value Reference Range Interpretation Comments Urine Blood (test code = 18822-1) 1+ NEGATIVE H [facility]Creat[facility] Kinase FE7624-44-16 07:00:00* Test Item Value Reference Range Interpretation Comments Creatine Kinase MB (test code = 15763-1) 1.40 0-5.0 [facility] R5747-50-35 07:00:00* Test Item Value Reference Range Interpretation Comments Troponin I (test code = DDK3500) 0.008 0-0.300 [facility] Kinase QV7788-41-65 07:00:00* Test Item Value Reference Range Interpretation Comments Creatine Kinase MB (test code = 69156-4) 1.40 0-5.0 [place] [id number] 07:00:00* Test Item Value Reference Range Interpretation Comments Troponin I (test code = EBC6159) 0.008 0-0.300 [facility] Kinase CQ8310-15-70 07:00:00* Test Item Value Reference Range Interpretation Comments Creatine Kinase MB (test code = 02587-5) 1.40 0-5.0 [place] 86826018-07-24 07:00:00* Test Item Value Reference Range Interpretation Comments Troponin I (test code = FQE1562) 0.008 0-0.300 [facility] Sqenq5229-63-65 06:56:00* Test Item Value Reference Range Interpretation Comments Sodium Level (test code = 2951-2) 129 136-145 L [facility]Potassium Hqznp7964-47-11 06:56:00* Test Item Value Reference Range Interpretation Comments Potassium Level (test code = 2823-3) 4.5 3.5-5.1 [facility]Chloride Akuym9458-37-35 06:56:00* Test Item Value Reference Range Interpretation Comments Chloride Level (test code = 2075-0) 92 98-107 L [facility] HospitalCarbon Dioxide Cxsmr7197-18-38 06:56:00* Test Item Value Reference Range Interpretation Comments Carbon Dioxide Level (test code = 2028-9) 26 22-29 [facility] HospitalAnion Oay1716-26-57 06:56:00* Test Item Value Reference Range Interpretation Comments Anion Gap (test code = 65940-2) 15.5 8-16 [facility]Blood Urea Oajdroru9517-28-09 06:56:00* Test Item Value Reference Range Interpretation Comments Blood Urea Nitrogen (test code = 3094-0) 29 7-26 H [facility] HospitalCreatinine2018-07-24 06:56:00* Test Item Value Reference Range Interpretation Comments Creatinine (test code = 2160-0) 1.73 0.57-1.11 H [facility] HospitalBUN/Creatinine Ydswm2293-81-97 06:56:00* Test Item Value Reference Range Interpretation Comments BUN/Creatinine Ratio (test code = 3097-3) 17 6-25 [facility] HospitalEstimat Glomerular Filtration Rate 2018-01-30 06:56:00* Test Item Value Reference Range Interpretation Comments Estimat Glomerular Filtration Rate (test code = 09414-0) 28 >60 L Ranges were taken from the National Kidney Disease Education Program and the [facility] literature.Reference ranges:60 or greater: Qemwox25-23 ( for 3 consecutive months): Chronic kidney disease 15 or less: Kidney failureNortheast Baptist HospitalGlucose Aezcj0400-90-81 06:56:00* Test Item Value Reference Range Interpretation Comments Glucose Level (test code = HQI4167) 169 74-118 H [facility] HospitalCalcium Kyiat6310-29-88 06:56:00* Test Item Value Reference Range Interpretation Comments Calcium Level (test code = 36224-1) 10.1 8.4-10.2 [facility] HospitalLactic Acid Asydf8639-06-36 06:56:00* Test Item Value Reference Range Interpretation Comments Lactic Acid Level (test code = Lactic Acid Level) 16.7 4.5- 19.8 [facility] HospitalTotal Jlshvtlej6152-91-90 06:56:00* Test Item Value Reference Range Interpretation Comments Total Bilirubin (test code = 1975-2) 0.8 0.2-1.2 [facility] HospitalAspartate Amino Transf (AST/SGOT) 2018-01-30 06:56:00* Test Item Value Reference Range Interpretation Comments Aspartate Amino Transf (AST/SGOT) (test code = Aspartate Amino Transf (AST/SGOT)) 16 5-34 [facility] HospitalAlanine Aminotransferase (ALT/SGPT) 2018-01-30 06:56:00* Test Item Value Reference Range Interpretation Comments Alanine Aminotransferase (ALT/SGPT) (test code = 1742-6) 10 0-55 [facility] HospitalTotal Icbcahx2227-44-46 06:56:00* Test Item Value Reference Range Interpretation Comments Total Protein (test code = 2885-2) 7.2 6.5-8.1 [facility] HospitalAlbumin2018-07-24 06:56:00* Test Item Value Reference Range Interpretation Comments Albumin (test code = 1751-7) 3.8 3.5-5.0 [facility] HospitalGlobulin2018-07-24 06:56:00* Test Item Value Reference Range Interpretation Comments Globulin (test code = 43340-4) 3.4 2.3-3.5 [facility] HospitalAlbumin/Globulin Uydva4799-53-09 06:56:00 * Test Item Value Reference Range Interpretation Comments Albumin/Globulin Ratio (test code = 1759-0) 1.1 0.8-2.0 [facility] HospitalAlkaline Eunqgcrsimg5499-35-86 06:56:00* Test Item Value Reference Range Interpretation Comments Alkaline Phosphatase (test code = 6768-6) 82 40-150 [facility] HospitalCreatine Ubmcwy6358-67-52 06:56:00* Test Item Value Reference Range Interpretation Comments Creatine Kinase (test code = 2157-6) 37 29-168 [facility] HospitalAmylase Uyqgz3787-72-49 06:56:00* Test Item Value Reference Range Interpretation Comments Amylase Level (test code = 1798-8) 61 25-125 [facility] HospitalLipase2018-07-24 06:56:00* Test Item Value Reference Range Interpretation Comments Lipase (test code = 3040-3) 57 8-78 [facility] Hqcmg0574-01-77 06:56:00* Test Item Value Reference Range Interpretation Comments Sodium Level (test code = 2951-2) 129 136-145 L [facility] HospitalPotassium Rniig8403-89-52 06:56:00* Test Item Value Reference Range Interpretation Comments Potassium Level (test code = 2823-3) 4.5 3.5-5.1 [facility] HospitalChloride Nyckx3104-36-58 06:56:00* Test Item Value Reference Range Interpretation Comments Chloride Level (test code = 2075-0) 92 98-107 L [facility] HospitalCarbon Dioxide Eugjb8938-63-13 06:56:00* Test Item Value Reference Range Interpretation Comments Carbon Dioxide Level (test code = 2028-9) 26 22-29 [facility] HospitalAnion Mpm0929-09-94 06:56:00* Test Item Value Reference Range Interpretation Comments Anion Gap (test code = 37693-2) 15.5 8-16 [facility] HospitalBlood Urea Fvxtkmuo5234-15-80 06:56:00* Test Item Value Reference Range Interpretation Comments Blood Urea Nitrogen (test code = 3094-0) 29 7-26 H [facility] HospitalCreatinine2018-07-24 06:56:00* Test Item Value Reference Range Interpretation Comments Creatinine (test code = 2160-0) 1.73 0.57-1.11 H [facility] HospitalBUN/Creatinine Xoaun3805-62-12 06:56:00* Test Item Value Reference Range Interpretation Comments BUN/Creatinine Ratio (test code = 3097-3) 17 6-25 [facility] HospitalEstimat Glomerular Filtration Rate 2018-01-30 06:56:00* Test Item Value Reference Range Interpretation Comments Estimat Glomerular Filtration Rate (test code = 25135-1) 28 >60 L Ranges were taken from the National Kidney Disease Education Program and the [facility] literature.Reference ranges:60 or greater: Eempja92-17 ( for 3 consecutive months): Chronic kidney disease 15 or less: Kidney failureNortheast Baptist HospitalGlucose Drcdh8801-87-71 06:56:00* Test Item Value Reference Range Interpretation Comments Glucose Level (test code = SQC2668) 169 74-118 H [facility] HospitalCalcium Ruipq3550-18-58 06:56:00* Test Item Value Reference Range Interpretation Comments Calcium Level (test code = 02941-2) 10.1 8.4-10.2 [facility] HospitalLactic Acid Rmerz5619-12-33 06:56:00* Test Item Value Reference Range Interpretation Comments Lactic Acid Level (test code = Lactic Acid Level) 16.7 4.5- 19.8 [facility] HospitalTotal Nyacgwuqp5048-47-35 06:56:00* Test Item Value Reference Range Interpretation Comments Total Bilirubin (test code = 1975-2) 0.8 0.2-1.2 [facility] HospitalAspartate Amino Transf (AST/SGOT) 2018-01-30 06:56:00* Test Item Value Reference Range Interpretation Comments Aspartate Amino Transf (AST/SGOT) (test code = Aspartate Amino Transf (AST/SGOT)) 16 5-34 [facility] HospitalAlanine Aminotransferase (ALT/SGPT) 2018-01-30 06:56:00* Test Item Value Reference Range Interpretation Comments Alanine Aminotransferase (ALT/SGPT) (test code = 1742-6) 10 0-55 [facility] HospitalTotal Dauvdgn1382-03-92 06:56:00* Test Item Value Reference Range Interpretation Comments Total Protein (test code = 2885-2) 7.2 6.5-8.1 [facility] HospitalAlbumin2018-07-24 06:56:00* Test Item Value Reference Range Interpretation Comments Albumin (test code = 1751-7) 3.8 3.5-5.0 [facility] HospitalGlobulin2018-07-24 06:56:00* Test Item Value Reference Range Interpretation Comments Globulin (test code = 76209-9) 3.4 2.3-3.5 [facility] HospitalAlbumin/Globulin Vrpgw9297-67-87 06:56:00 * Test Item Value Reference Range Interpretation Comments Albumin/Globulin Ratio (test code = 1759-0) 1.1 0.8-2.0 [facility] HospitalAlkaline Lctjzaiqieu7077-05-44 06:56:00* Test Item Value Reference Range Interpretation Comments Alkaline Phosphatase (test code = 6768-6) 82 40-150 [facility] HospitalCreatine Cqnuqr0816-62-38 06:56:00* Test Item Value Reference Range Interpretation Comments Creatine Kinase (test code = 2157-6) 37 29-168 [facility] HospitalAmylase Kmkuy6008-42-40 06:56:00* Test Item Value Reference Range Interpretation Comments Amylase Level (test code = 1798-8) 61 25-125 [facility] HospitalLipase2018-07-24 06:56:00* Test Item Value Reference Range Interpretation Comments Lipase (test code = 3040-3) 57 878 [facility] HospitalCreatine Iwihxe8705-24-71 06:56:00* Test Item Value Reference Range Interpretation Comments Creatine Kinase (test code = 2157-6) 37 29-168 [facility] HospitalLipase2018-07-24 06:56:00* Test Item Value Reference Range Interpretation Comments Lipase (test code = 3040-3) 57 8-78 [facility] HospitalProthrombin Cclx0370-40-83 06:51:00* Test Item Value Reference Range Interpretation Comments Prothrombin Time (test code = 5902-2) 12.5 11.9-14.5 [facility] HospitalProthromb Time International Ratio 2018-01-30 06:51:00* Test Item Value Reference Range Interpretation Comments Prothromb Time International Ratio (test code = 6301-6) 1.01 Oral Anticoagulant Therapy INR Values:1. Low Intensity Therapy 1.5 - 2.02 . Moderate Intensity Therapy 2.0 - 3.03. High Intensity Therapy(1) 2.5 - 3. 54. High Intensity Therapy(2) 3.0 - 4.05. Panic Value INR > 5.0 [facility] HospitalActivated Partial Thromboplast Time 2018-01-30 06:51:00* Test Item Value Reference Range Interpretation Comments Activated Partial Thromboplast Time (test code = 77598-2) 29.7 23.8-35.5 [facility] HospitalProthrombin Qiyq9344-78-61 06:51:00* Test Item Value Reference Range Interpretation Comments Prothrombin Time (test code = 5902-2) 12.5 11.9-14.5 [facility] HospitalProthromb Time International Ratio 2018-01-30 06:51:00* Test Item Value Reference Range Interpretation Comments Prothromb Time International Ratio (test code = 6301-6) 1.01 Oral Anticoagulant Therapy INR Values:1. Low Intensity Therapy 1.5 - 2.02 . Moderate Intensity Therapy 2.0 - 3.03. High Intensity Therapy(1) 2.5 - 3. 54. High Intensity Therapy(2) 3.0 - 4.05. Panic Value INR > 5.0 [facility] HospitalAct[facility] Partial Thromboplast Time 2018-01-30 06:51:00* Test Item Value Reference Range Interpretation Comments Activated Partial Thromboplast Time (test code = 22824-5) 29.7 23.8-35.5 [facility] HospitalProthrombin Rvod8472-27-51 06:51:00* Test Item Value Reference Range Interpretation Comments Prothrombin Time (test code = 5902-2) 12.5 11.9-14.5 [facility] International Ratio 2018-01-30 06:51:00* Test Item Value Reference Range Interpretation Comments Prothromb Time International Ratio (test code = 6301-6) 1.01 Oral Anticoagulant Therapy INR Values:1. Low Intensity Therapy 1.5 - 2.02 . Moderate Intensity Therapy 2.0 - 3.03. High Intensity Therapy(1) 2.5 - 3. 54. High Intensity Therapy(2) 3.0 - 4.05. Panic Value INR > 5.0 [facility]Act[facility] Partial Thromboplast Time 2018-01-30 06:51:00* Test Item Value Reference Range Interpretation Comments Activated Partial Thromboplast Time (test code = 66993-0) 29.7 23.8-35.5 [facility] Blood Gqwea0583-03-39 06:35:00* Test Item Value Reference Range Interpretation Comments White Blood Count (test code = 6690-2) 11.43 4.8-10.8 H [facility]Red [facility] Ndmjy0155-49-13 06:35:00* Test Item Value Reference Range Interpretation Comments Red Blood Count (test code = 789-8) 4.41 3.6-5.1 [facility]Hemoglobin2018-07-24 06:35:00* Test Item Value Reference Range Interpretation Comments Hemoglobin (test code = 73480-4) 13.4 12.0-16.0 [facility] HospitalHematocrit2018-07-24 06:35:00* Test Item Value Reference Range Interpretation Comments Hematocrit (test code = 4544-3) 40.5 34.2-44.1 [facility] HospitalMean Corpuscular Cgripf3128-22-78 06:35:00* Test Item Value Reference Range Interpretation Comments Mean Corpuscular Volume (test code = 787-2) 91.8 81-99 [facility]Mean Corpuscular Ulqksnxwkw1810-24-37 06:35:00* Test Item Value Reference Range Interpretation Comments Mean Corpuscular Hemoglobin (test code = 785-6) 30.4 28-32 [facility]Mean Corpuscular Hemoglobin Concent 2018-01-30 06:35:00* Test Item Value Reference Range Interpretation Comments Mean Corpuscular Hemoglobin Concent (test code = 786-4) 33.1 31-35 [facility]Red Cell Distribution Xizhy2496-37-15 06:35:00* Test Item Value Reference Range Interpretation Comments Red Cell Distribution Width (test code = 85707-3) 12.8 11.7 -14.4 [facility] HospitalPlatelet Ydwdv9855-29-82 06:35:00* Test Item Value Reference Range Interpretation Comments Platelet Count (test code = 777-3) 388 140-360 H [facility] HospitalNeutrophils (%) (Auto)2018-01-30 06:35:00 * Test Item Value Reference Range Interpretation Comments Neutrophils (%) (Auto) (test code = 80331-3) 78.6 38.7-80.0 [facility] HospitalLymphocytes (%) (Auto)2018-01-30 06:35:00 * Test Item Value Reference Range Interpretation Comments Lymphocytes (%) (Auto) (test code = 736-9) 13.4 18.0-39.1 L [facility] HospitalMonocytes (%) (Auto)2018-01-30 06:35:00* Test Item Value Reference Range Interpretation Comments Monocytes (%) (Auto) (test code = 5905-5) 5.0 4.4-11.3 [facility] HospitalEosinophils (%) (Auto)2018-01-30 06:35:00 * Test Item Value Reference Range Interpretation Comments Eosinophils (%) (Auto) (test code = 713-8) 2.0 0.0-6.0 [facility] HospitalBasophils (%) (Auto)2018-01-30 06:35:00* Test Item Value Reference Range Interpretation Comments Basophils (%) (Auto) (test code = 706-2) 0.3 0.0-1.0 [facility] HospitalIM GRANULOCYTES %2018-01-30 06:35:00* Test Item Value Reference Range Interpretation Comments IM GRANULOCYTES % (test code = IM GRANULOCYTES %) 0.7 0.0- 1.0 [facility] HospitalNeutrophils # (Auto)2018-01-30 06:35:00* Test Item Value Reference Range Interpretation Comments Neutrophils # (Auto) (test code = 751-8) 9.0 2.1-6.9 H [facility] HospitalLymphocytes # (Auto)2018-01-30 06:35:00* Test Item Value Reference Range Interpretation Comments Lymphocytes # (Auto) (test code = 03945-9) 1.5 1.0-3.2 [facility] HospitalMonocytes # (Auto)2018-01-30 06:35:00* Test Item Value Reference Range Interpretation Comments Monocytes # (Auto) (test code = 742-7) 0.6 0.2-0.8 [facility]Eosinophils # (Auto)2018-01-30 06:35:00* Test Item Value Reference Range Interpretation Comments Eosinophils # (Auto) (test code = 711-2) 0.2 0.0-0.4 [facility]Basophils # (Auto)2018-01-30 06:35:00* Test Item Value Reference Range Interpretation Comments Basophils # (Auto) (test code = 704-7) 0.0 0.0-0.1 [facility] HospitalAbsolute Immature Granulocyte (auto 2018-01-30 06:35:00* Test Item Value Reference Range Interpretation Comments Absolute Immature Granulocyte (auto (marika t code = Absolute Immature Granulocyte (auto) 0.08 0-0.1 [facility] HospitalWhite Blood Fzupr4933-39-94 06:35:00* Test Item Value Reference Range Interpretation Comments White Blood Count (test code = 6690-2) 11.43 4.8-10.8 H [facility] HospitalRed Blood Dlyxq7256-27-74 06:35:00* Test Item Value Reference Range Interpretation Comments Red Blood Count (test code = 789-8) 4.41 3.6-5.1 [facility] HospitalHemoglobin2018-07-24 06:35:00* Test Item Value Reference Range Interpretation Comments Hemoglobin (test code = 90187-5) 13.4 12.0-16.0 [facility] HospitalHematocrit2018-07-24 06:35:00* Test Item Value Reference Range Interpretation Comments Hematocrit (test code = 4544-3) 40.5 34.2-44.1 [facility] HospitalMean Corpuscular Dzxres6252-13-83 06:35:00* Test Item Value Reference Range Interpretation Comments Mean Corpuscular Volume (test code = 787-2) 91.8 81-99 [facility] HospitalMean Corpuscular Wquevozfhj8604-41-06 06:35:00* Test Item Value Reference Range Interpretation Comments Mean Corpuscular Hemoglobin (test code = 785-6) 30.4 28-32 [facility] HospitalMean Corpuscular Hemoglobin Concent 2018-01-30 06:35:00* Test Item Value Reference Range Interpretation Comments Mean Corpuscular Hemoglobin Concent (test code = 786-4) 33.1 31-35 [facility]Red Cell Distribution Cgdlu1063-60-03 06:35:00* Test Item Value Reference Range Interpretation Comments Red Cell Distribution Width (test code = 10906-3) 12.8 11.7 -14.4 [facility] HospitalPlatelet Epdri7333-58-53 06:35:00* Test Item Value Reference Range Interpretation Comments Platelet Count (test code = 777-3) 388 140-360 H [facility] HospitalNeutrophils (%) (Auto)2018-01-30 06:35:00 * Test Item Value Reference Range Interpretation Comments Neutrophils (%) (Auto) (test code = 86687-4) 78.6 38.7-80.0 [facility] HospitalLymphocytes (%) (Auto)2018-01-30 06:35:00 * Test Item Value Reference Range Interpretation Comments Lymphocytes (%) (Auto) (test code = 736-9) 13.4 18.0-39.1 L [facility] HospitalMonocytes (%) (Auto)2018-01-30 06:35:00* Test Item Value Reference Range Interpretation Comments Monocytes (%) (Auto) (test code = 5905-5) 5.0 4.4-11.3 [facility] HospitalEosinophils (%) (Auto)2018-01-30 06:35:00 * Test Item Value Reference Range Interpretation Comments Eosinophils (%) (Auto) (test code = 713-8) 2.0 0.0-6.0 [facility] HospitalBasophils (%) (Auto)2018-01-30 06:35:00* Test Item Value Reference Range Interpretation Comments Basophils (%) (Auto) (test code = 706-2) 0.3 0.0-1.0 [facility] HospitalIM GRANULOCYTES %2018-01-30 06:35:00* Test Item Value Reference Range Interpretation Comments IM GRANULOCYTES % (test code = IM GRANULOCYTES %) 0.7 0.0- 1.0 [facility] HospitalNeutrophils # (Auto)2018-01-30 06:35:00* Test Item Value Reference Range Interpretation Comments Neutrophils # (Auto) (test code = 751-8) 9.0 2.1-6.9 H [facility] HospitalLymphocytes # (Auto)2018-01-30 06:35:00* Test Item Value Reference Range Interpretation Comments Lymphocytes # (Auto) (test code = 70367-2) 1.5 1.0-3.2 [facility] HospitalMonocytes # (Auto)2018-01-30 06:35:00* Test Item Value Reference Range Interpretation Comments Monocytes # (Auto) (test code = 742-7) 0.6 0.2-0.8 [facility] HospitalEosinophils # (Auto)2018-01-30 06:35:00* Test Item Value Reference Range Interpretation Comments Eosinophils # (Auto) (test code = 711-2) 0.2 0.0-0.4 [facility] HospitalBasophils # (Auto)2018-01-30 06:35:00* Test Item Value Reference Range Interpretation Comments Basophils # (Auto) (test code = 704-7) 0.0 0.0-0.1 [facility] HospitalAbsolute Immature Granulocyte (auto 2018-01-30 06:35:00* Test Item Value Reference Range Interpretation Comments Absolute Immature Granulocyte (auto (marika t code = Absolute Immature Granulocyte (auto) 0.08 0-0.1 [facility] HospitalTHORACIC SPINE 2[facility]W [facility] [address] [place] [address] Patient Name: JESS SCHULZ MR #: [id number] : 1930 Age/Sex: 87/F Req #: [id number] [facility] Physician: Ordered by: GARIMA GREENBERG (NON STAFF) Report #: [id number] Location: [facility] Room/Bed: Procedure: [id number] DX/THORACIC SPINE 2VW E xam Date: 10/26/17 Exam Time: 1100 REPORT STATU S: Signed PROCEDURE: THORACIC SPINE 2VW COMPARISON: Patients [facility], DX, SP LUMBAR, COMPLETE MIN 4VW, 10/26/2017, 11:01. Patients [facility], DX, CHEST SINGLE (PORTABLE), 09/10/2013, 11:17. INDICATIONS: BACK PAIN FINDINGS: Generalized osteopenia. Age-indeterminate josé miguel niranjan deformities of likely L1 and T10. Degenerative disc changes in the lower cervical and thoracic spine. No lytic or blastic lesions. No significant sp ondylolisthesis. Paravertebral soft tissues are unremarkable. Atheroscleroti c calcification of the thoracic aorta. CONCLUSION: Generalized osteopen ia, which limits evaluation of the bony structures. Age-indeterminate compress ion deformities of likely L1, and T10. Hiren Rodriguez M.D. Dictated by: Hiren Rodriguez M.D. on 10/26/2017 at 11:41 Electroni alec approved by: Hiren Rodriguez M.D. on 10/26/2017 at 11:41 Dictated By: HIREN RODRIGUEZ MD 1141 Transcribed By: CARRILLO on 10/26/17 1141 COPY TO: GARIMA GREENBERG (NON STAFF) SP LUMBAR[place] [facility] [place] [address] Patient Name: JESS SCHULZ MR #: [id number] : 1930 Age/Sex: 87/F Req #: [id number] Adm Physician: Ordered by: GARIMA GREENBERG (NON STAFF) Report #: [id number] Location: [facility] Room/Bed: Procedure: [id number] DX/SP LUMBAR, COMPLETE M IN 4VW Exam Date: 10/26/17 Exam Time: 1100 REP ORT STATUS: Signed PROCEDURE: L-SPINE COMPLETE COMPARISON: None. INDICATIONS: BACK PAIN FINDINGS: Generalized osteopenia. No d efinite acute, displaced fracture. Age-indeterminate compression deformities o f the L1, L2, and L4 vertebral bodies. No other vertebral body heights are preserved. No lytic or blastic lesions. Mild degenerative disc changes. Slig ht grade 1 anterolisthesis of L5 on L4 and S1. Facet hypertrophy. L4-L5 and L 5-S1. Atherosclerotic calcification of the abdominal aorta. Bilateral obliqu e views show no spondylolysis. CONCLUSION: Generalized osteopenia foster its evaluation of the bony structures. Age-indeterminate compression deformiti es of the L1, L2, and L4 vertebral bodies. Degenerative disc changes with sli ght grade 1 anterolisthesis of L5 on L4 and S1. Sherrill Nugent Dictated by: Hiren Rodriguez M.D. on 10/26/2017 at 11:44 Electro nically approved by: Hiren Rodriguez M.D. on 10/26/2017 at 11:44 Dictated By: HIREN RODRIGUEZ MD 1144 Transcribed By: CARRILLO on 10/26/17 1144 COPY TO: GARIMA RUIZ (NON STAFF)
--- NOTE | 2020-05-26 16:10 | Emergency Department Note ---
History of Present Illnes History of Present Illness Chief Complaint: General Medicine Complaints History of Present Illness This is a 89 year old female Chief Complaint Comment PER EMS, PT FAMILY STATED THAT PT FELL TODAY. PT FAMILY STATES THAT PT HAS BEEN VERY WEAK AND HAS NOT BEEN EATING. PT LIVES AT HOME WITH FAMILY. PT STATES SHE CAN WALK AT HOME. PT STATES SHE FEELS VERY WEAK. 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 Mode: [place] [employer] Department Required: No Onset (how long ago): day(s) Location: Generalized Quality: Weakness Radiation: Reports non-radiation Severity: mild Onset quality: gradual Duration (how long): day(s) Timing of current episode: constant Progression: worsening Chronicity: new Context: Denies recent illness, Denies recent surgery Relieving factors: none Exacerbating factors: none Associated symptoms: Reports denies other symptoms Treatments prior to arrival: none (ZOYA POON MD) Past Medical/Family History Physician Review I have reviewed the patient's past medical and family history. Any updates have been documented here. (ZOYA POON MD) Past Medical History Recent Fever: No Clinical Suspicion of Infectio: No New/Unexplained Change in Ment: No Past Medical History: Hypertension, GERD Other Medical History: HYPERCHOLESTEREMIA, CAD Past Surgical History: Orthopedic Implants Other Surgery: left hip metal implant (ZOYA POON MD) Other Last Tetanus: UTD (ZOYA POON MD) Review of Systems Review of Systems Constitutional: Reports as per HPI, Reports weakness EENTM: Reports no symptoms Cardiovascular: Reports no symptoms Respiratory: Reports no symptoms Gastrointestinal: Reports as per HPI, Reports abdominal pain Genitourinary: Reports no symptoms Musculoskeletal: Reports no symptoms Integumentary: Reports no symptoms Neurological: Reports no symptoms Psychological: Reports no symptoms Endocrine: Reports no symptoms Hematological/Lymphatic: Reports no symptoms (ZOYA POON MD) Physical Exam Related Data Allergies: Coded Allergies: No Known Drug Allergies (Verified Allergy, Mild, 06/19/10) Triage Vital Signs Vital Signs Date Time Temp Pulse Resp B/P (MAP) Pulse Ox O2 Delivery O2 Flow Rate FiO2 05/26/20 15:35 97.0 83 16 134/59 98 Room Air Vital signs reviewed: Yes (ZOYA POON MD) Physical Exam CONSTITUTIONAL Constitutional: Present well-developed, Present well-nourished HENT HENT: Present normocephalic, Present atraumatic, Present oropharynx clear/moist, Present nose normal HENT L/R: Present left ext ear normal, Present right ext ear normal EYES Eyes: Reports PERRL, Reports conjunctivae normal NECK Neck: Present ROM normal PULMONARY Pulmonary: Present effort normal, Present breath sounds normal CARDIOVASCULAR Cardiovascular: Present regular rhythm, Present heart sounds normal, Present capillary refill normal, Present normal rate GASTROINTESTINAL Abdominal: Present soft, Present bowel sounds normal, Present tender (Non localized) GENITOURINARY Genitourinary: Present exam deferred SKIN Skin: Present warm, Present dry MUSCULOSKELETAL Musculoskeletal: Present ROM normal NEUROLOGICAL Neurological: Present alert, Present oriented x 3, Present no gross motor or sensory deficits PSYCHOLOGICAL Psychological: Present mood/affect normal, Present judgement normal (ZOYA POON MD) Results Laboratory Lab results reviewed: Yes (ZOYA POON MD) Imaging Imaging results reviewed: Yes (ZOYA POON MD) Imaging results reviewed: Yes Impressions Procedure: [id number] CT/CT ABDOMEN/PELVIS W Exam Date: 05/26/20 Exam Time: 1800 REPORT STATUS: Signed EXAM: CT Abdomen and Pelvis WITH contrast INDICATION: Abd pain, Diffuse ^[id number] ^1800 COMPARISON: None. TECHNIQUE: Abdomen and pelvis were scanned utilizing a multidetector helical scanner from the lung base to the pubic symphysis after administration of IV contrast. Coronal and sagittal reformations were obtained. Routine protocol was performed. Scan was performed when during portal venous phase. IV CONTRAST: 100 mL of Isovue 370 ORAL CONTRAST: None COMPLICATIONS: None RADIATION DOSE: Total DLP: 181 mGy*cm Estimated effective dose: (DLP x 0.015 x size factor) mSv CTDIvol has been reviewed. It is below the limits set by the Radiation Protocol Committee (RPC). Dose modulation, iterative reconstruction, and/or weight based adjustment of the mA/kV was utilized to reduce the radiation dose to as low as reasonably achievable. FINDINGS: LINES and TUBES: None. LOWER THORAX: There is bibasilar atelectasis. There is diffuse centrilobular emphysema. HEPATOBILIARY: No focal hepatic lesions. No biliary ductal dilation. GALLBLADDER: No radio-opaque stones or sludge. No wall thickening. SPLEEN: No splenomegaly. PANCREAS: Appears atrophic and not well visualized. ADRENALS: No adrenal nodules KIDNEYS/URETERS: Kidneys enhance symmetrically. No hydronephrosis. No cystic or solid mass lesions. No stones. GI TRACT: There are post surgical changes of the stomach and small bowel. There are multiple loops of small and large bowel with thickened and hyperenhancing oreilly. Appendix is not clearly identified. There is however no fat stranding or adenopathy in the right lower quadrant to suggest appendicitis. PELVIC ORGANS/BLADDER: Pelvic organs not well visualized due to lack of pelvic fat. LYMPH NODES: No lymphadenopathy. VESSELS: The abdominal aorta appears tortuous with focal dilatation in the infrarenal region measuring approximately 3.1 x 2.9 cm. There is severe atherosclerotic disease in the aorta and major arterial branches. PERITONEUM / RETROPERITONEUM: There is diffuse pneumoperitoneum of indeterminate cause. There is small volume ascites. Lack of mesenteric fat limits optimal assessment of the peritoneum and retroperitoneum. BONES: The bones are diffusely demineralized. There is redemonstration of multiple compression fractures of the lower thoracic spine and lumbar spine. No new fracture identified. SOFT TISSUES: There is diffuse anarsarca. IMPRESSION: 1. Multiple loops of large and small bowel with thickened and hyperenhancing oreilly highly suspicious for shock bowel, usually secondary to hypoperfusion state. 2. Diffuse pneumoperitoneum of indeterminate cause. 3. Small volume ascites. 4. Infrarenal abdominal aortic aneurysm which measures up to 3.1 cm, stable. Recommend yearly follow-up with abdominal ultrasound. 5. Diffuse anasarca. 6. Multiple chronic compression fractures of the thoracolumbar spine. Critical findings were discussed with Dr. Mejia over the telephone at 6:52 PM on 05/26/2020. Signed by: Birgit Esqueda MD on 05/26/2020 6:59 PM Dictated By: BIRGIT ESQUEDA MD 58 Transcribed By: VINICIUS on 05/26/201858 COPY TO: ZOYA POON MD~ (JOAQUIM MEJIA MD) Diagnostics Tests Diagnostic test(s) reviewed: Yes (ZOYA POON MD) Procedures 12 Lead ECG Interpretation ECG Interpretation : Manager Massage Department: Interpreted by ED physician Date: May 26, 2020 Rhythm: sinus rhythm Rate: normal QRS axis: normal Conduction: left bundle branch block ST segments normal: Yes T waves normal: Yes Clinical Impression: abnormal ECG (ZOYA POON MD) Assessment & Plan Medical Decision Making MDM pt with perforated bowel, dr mazariegos(surgeon) evaluated pt and states pt needs to go to or and will need icu bed after surgery, no icu beds available at this facility pt therefor will need to be transferred to another hospital i spoke with dr posada at [facility] and he accepts pt for transfer (JOAQUIM MEJIA MD) Assessment & Plan Final Impression: (1) Perforation of viscus (2) Hypokalemia (3) Pneumoperitoneum (JOAQUIM MEJIA MD) Depart Disposition: TRANS TO OTHER [facility] Last Vital Signs Date Time Temp Pulse Resp B/P (MAP) Pulse Ox O2 Delivery O2 Flow Rate FiO2 05/26/20 15:35 97.0 83 16 134/59 98 Room Air (ZOYA POON MD) Home Meds Reported Medications [Lidocaine Patch 5%] No Conflict Check, 1 PATCH TD 02/08/18 Mirtazapine (REMERON) 15 Mg Tab.rapdis, 7.5 MG PO HS 02/08/18 Atorvastatin Calcium (ATORVASTATIN CALCIUM) 40 Mg Tablet, 1 MG PO DAILY, #90 09/14/13 Rivaroxaban (XARELTO) 10 Mg Tablet, 1 MG PO DAILY, #34 09/14/13 Simvastatin (SIMVASTATIN) 40 Mg Tablet, 40 MG PO HS 09/11/13 ZOYA POON MD May 26, 2020 16:10 JOAQUIM MEJIA MD May 26, 2020 20:24
--- NOTE | 2020-05-26 16:18 | Diagnostic Imaging Report ---
EXAM: CHEST SINGLE (PORTABLE) DATE: 05/26/2020 4:00 PM INDICATION: Weakness, fall COMPARISON: 02/03/2018 FINDINGS: The trachea is midline. The lungs are hyperinflated suggestive of COPD/emphysema. Scattered granulomatous calcifications noted within the left lung. There are mildly increased bibasilar opacity suggestive of atelectasis. There is no evidence for large focal consolidation, pneumothorax, or significant volume pleural effusion. The cardiomediastinal silhouette is within normal limits. Atherosclerotic calcification are noted within the thoracic aorta. No acute osseous abnormality is identified. IMPRESSION: No acute cardiopulmonary process identified. Signed by: Dr. Zeke Emerson MD on 05/26/2020 4:15 PM
[2020-05-26 16:23] LABS: BASOPHILS # (AUTO) 0.1 (0.0-0.1); BASOPHILS % 0.4 % (0.0-1.0); EOSINOPHILS # (AUTO) 0.1 (0.0-0.4); EOSINOPHILS % 0.4 % (0.0-6.0); HEMATOCRIT 29.4 % (34.2-44.1); HEMOGLOBIN 9.9 g/dL (12.0-16.0); LYMPHOCYTES # (AUTO) 0.2 (1.0-3.2); LYMPHOCYTES % 1.5 % (18.0-39.1); MEAN CORPUSCULAR HEMOGLOBIN 33.3 pg (28-32); MEAN CORPUSCULAR HGB CONC 33.7 g/dL (31-35); MONOCYTES # (AUTO) 0.3 (0.2-0.8); MONOCYTES % 2.3 % (4.4-11.3); NEUTROPHILS # (AUTO) 12.7 (2.1-6.9); PLATELET COUNT 192 x10e3/uL (140-360); RED BLOOD COUNT 2.97 x10e6/uL (3.6-5.1); RED CELL DISTRIBUTION WIDTH 14.2 % (11.7-14.4)
--- NOTE | 2020-05-26 16:33 | NUR ---
PT NOTED TO HAVE PURPLE FINGERTIPS AND TOES. NOTIFIED MD POON
[2020-05-26 16:45] LABS: ALBUMIN 2.5 g/dL (3.5-5.0); ALBUMIN/GLOBULIN RATIO 0.9 (0.8-2.0); ANION GAP 17.2 mmol/L (8-16); CALCIUM 8.2 mg/dL (8.4-10.2); CREATININE, SERUM 1.15 mg/dL (0.57-1.11)
[2020-05-26 16:46] LABS: POTASSIUM 2.2 mmol/L (3.5-5.1)
[2020-05-26 16:47] LABS: LIPASE < 4 U/L (8-78)
[2020-05-26] MEDS ORDERED: POTASSIUM CHLORIDE 20MEQ/100ML 200 ML IV ONE (17:00)
[2020-05-26] MEDS ORDERED: SODIUM CHLORIDE 0.9% 500ML 500 ML IV STA (17:17)
[2020-05-26] MEDS ORDERED: SODIUM CHLORIDE 0.9% 1000ML 1,000 ML IV SCH (18:00)
[2020-05-26] MEDS ORDERED: ONDANSETRON HCL INJ 2MG/ML 2ML 2 MG/ML VIAL IV PRN (18:00)
--- OUTSIDE RECORDS SUMMARY | 2020-05-26 18:11 | XMS REPORT | Continuity of Care Document ---
Author Author [facility] t Organization [facility] Address [address] [place] [address] Phone Unavailable Care Team Providers Care Golf Course Keeper Name Role Phone NO, PCP PCP Unavailable Mireille Mireles Attphys Unavailable ERICKA CORNEJO Attphys Unavailable Aylin HOLLIS Attphys Unavailable Roberto Leyva Attphys DIONICIO, (NON STAFF) GARIMA Attphys Unavailable Kimani Pandya Attphys Aylin HOLLIS Admphys Unavailable Payers Payer Name Policy Type Policy Number Effective Date Expiration Date S ource Medicare A & B [id number] 1996 00:00:00 [facility] AARP [id number] [facility] Problems Condition Name Condition Details Condition Category Status Onset Date Resolution Date Last Treatment Date Treating Clinician Comments Source 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, 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, LUMBAR REGION Active 11/02/2017 [facility] Diagnosis A ctive 2017-11-02 00:00:00 2017-11-10 17:23:00 M luzmaria Harrell N18.3 - "CHRONIC KIDNEY DISEASE, STAGE" N18.3 - "CHRONIC KIDNEY DISEASE, STAGE" Active 05/24/2016 [facility] Diagnosis Active 2016-05-24 00:01:00 2016-05-26 13:21:00 M luzmaria Harrell Closed fracture of shaft of femur Fracture, femur closed, shaft Pro blem Active 2015-02-06 00:00:00 [facility] Perforated viscus Perforation of viscus Problem Active [facility] RADICULOPATHY, LUMBAR REGION R ADICULOPATHY, LUMBAR REGION Active [facility] Diagnosis Active 2017-11-10 17:23 :00 [facility] Allergies, Adverse Reactions, Alerts This patient has no known allergies or adverse reactions. Social History Social Habit Start Date Stop Date Quantity Comments Source Social History 2016-05-27 05:59:00 2016-05-27 05:59:00 [facility] Medications Ordered Medication Name Filled Medication Name Start Date Stop Da te Current Medication? Ordering Clinician Indication Dosage Frequency Signature (SIG) Comments Components Source Atorvastatin Calcium 40 Mg Tablet Atorvastatin Calcium 40 Mg Tablet Yes 1 Daily [facility] Lidocaine Patch 5% Lidocaine Patch 5% Yes 1 [facility] Mirtazapine (Remeron) 15 Mg Tab.rapdis Mirtazapine (Remeron) 15 Mg Tab.rapdis Yes 7.5 Bedtime [facility] Rivaroxaban (Xarelto) 10 Mg Tablet Rivaroxaban (Xarelto) 10 Mg Tablet Yes 1 Daily [facility] Simvastatin 40 Mg Tablet Simvastatin 40 Mg Tablet Yes 40 Bedtime [facility] Aspirin 81 Mg Tab.chew, 162 Mg Oral Aspirin 81 Mg Tab.chew, 162 Mg Oral 2018-02-08 00:00:00 No 162 Daily [facility] Acetaminophen With Codeine (Tylenol With Codeine #3 Tablet) 1 Each Tablet, 300 Mg Oral Acetaminophen With Codeine (Tylenol With Codeine #3 Tablet) 1 Each Tablet, 300 Mg Oral 2018-01-30 00:00:00 No 300 Daily as needed for Pain [facility] Cephalexin Monohydrate (Keflex) 500 Mg Capsule, 500 Mg Oral Cephalexin Monohydrate (Keflex) 500 Mg Capsule, 500 Mg Oral 2018-01-30 00:00:00 No 500 Twice A Day [facility] Diclofenac Sodium 50 Mg Tablet., 1 Mg Oral Diclofena c Sodium 50 Mg Tablet., 1 Mg Oral 2018-01-30 00:00:00 No 1 Bedtime [facility] Hydrocodone Bit/Acetaminophen ([place] 7.5-325 Tablet) 1 Each Tablet, 1-2 Mg Oral Hydrocodone Bit/Acetaminophen ([place] 7.5-325 Tablet) 1 Each Tablet, 1-2 Mg Oral 2018-01-30 00:00:00 No 1 Every 4-6 Hours as needed for Pain [facility] Rivaroxaban (Xarelto) 10 Mg Tablet, 10 Mg Oral Rivarox aban (Xarelto) 10 Mg Tablet, 10 Mg Oral 2015-02-10 00:00:00 No 10 Daily [facility] Atorvastatin Calcium 40 Mg Tablet, 40 Mg Oral Atorvast atin Calcium 40 Mg Tablet, 40 Mg Oral 2013-09-11 00:00:00 No 40 Daily [facility] Diclofenac Sodium 50 Mg Tablet., 50 Mg Oral Diclofen ac Sodium 50 Mg Tablet., 50 Mg Oral 2013-09-11 00:00:00 No 50 [facility] Procedures Procedure Date / Time Performed Performing Clinician Souralla e Exploratory laparotomy 2018-01-30 00:00:00 SELINA HOLLIS [facility] CT of abdomen and pelvis without contrast 2018-01-30 00:00:00 KEN BRAY [facility] Encounters Start Date/Time End Date/Time [facility]counter Type [facility] Encounter ID Source 2018-01-30 15:55:00 2018-02-08 11:12:00 Discharged Inpatient 1 SELINA HOLLIS [facility] [id number] [facility] 2017-11-10 16:30:00 2017-11-10 23:59:00 Outpatient Esteban Leyva [facility] [id number] 2017-10-26 10:42:00 2017-10-26 10:42:00 Registered Clinic GARIMA HAYWOOD [facility] [id number] [facility] 2016-05-26 13:08:00 2016-05-26 23:59:00 Outpatient Charlie Pandya [facility] [id number] Results Test Description Test Time Test Comments Results Result Comments Source CHEST SINGLE (PORTABLE) 2020-05-26 16:12:00 [facility] : 1930 Sex: F [facility] [address] [address] Patient Name: JESS SCHULZ MR #: [id number] : 1930 Age/Sex: 89/F Req #: [id number] Adm Physician: Ordered by: Zoya Mireles MD Report #: [id number] Location: ER Room/Bed: Procedure: [id number] DX/CHEST SINGLE (PORTABLE) Exam Date: 05/26/20 Exam Time: 1600 REPORT STATUS: Signed EXAM: CHEST SINGLE (PORTABLE) DATE: 05/26/2020 4:00 PM INDICATION: Weakness, fall COMPARISON: 02/03/2018 FINDINGS: The trachea is midline. The lungs are hyperinflated suggestive of COPD/emphysema. Scattered granulomatous calcifications noted within the left lung. There are mildly increased bibasilar opacity suggestive of atelectasis. There is no evidence for large focal consolidation, pneumothorax, or significant volume pleural effusion. The cardiomediastinal silhouette is within normal limits. Atherosclerotic calcification are noted within the thoracic aorta. No acute osseous abnormality is identified. IMPRESSION: No acute cardiopulmonary process identified. Signed by: Dr. Zeke Emerson MD on 05/26/2020 4:15 PM Dictated By: ZEKE EMERSON MD 14 Transcribed By: VINICIUS on 05/26/201614 COPY TO: ZOYA MIRELES MD CT ABDOMEN/PELVIS W 2020-04-20 10:09:00 [address] [place] [address] Patient Name: JESS SCHULZ MR #: [id number] : 1930 Age/Sex: 89/F Req #: [id number] Adm Physician: Ordered by: ERICKA CORNEJO MD Report #: [id number] Location: CT Room/Bed: Procedure: [id number] CT/CT ABDOMEN/PELVIS W Exam Date: 04/20/20 Exam [...] (test code = 2951-2) 135 136-145 L [facility]Potassium Aowew3222-65-81 12:07:00* Test Item Value Reference Range Interpretation Comments Potassium Level (test code = 2823-3) 3.6 3.5-5.1 [facility] CenterChloride Aikit3660-94-89 12:07:00* Test Item Value Reference Range Interpretation Comments Chloride Level (test code = 2075-0) 100 98-107 [facility] CenterCarbon Dioxide Hebvt4342-74-64 12:07:00* Test Item Value Reference Range Interpretation Comments Carbon Dioxide Level (test code = 8-9) 23 22-29 [facility] CenterAnion Bre9708-68-92 12:07:00* Test Item Value Reference Range Interpretation Comments Anion Gap (test code = 76542-8) 15.6 8-16 [facility] CenterBlood Urea Ersogsov8298-76-13 12:07:00* Test Item Value Reference Range Interpretation Comments Blood Urea Nitrogen (test code = 3094-0) 17 7- [facility] CenterCreatinine2018-08-01 12:07:00* Test Item Value Reference Range Interpretation Comments Creatinine (test code = 2160-0) 0.80 0.57-1.11 [facility] CenterBUN/Creatinine Ixtho2316-24-54 12:07:00* Test Item Value Reference Range Interpretation Comments BUN/Creatinine Ratio (test code = 3097-3) 21 - [facility] CenterEstimat Glomerular Filtration Rate 2018-02-07 12:07:00* Test Item Value Reference Range Interpretation Comments Estimat Glomerular Filtration Rate (test code = 02822-5) 60- >60 Ranges were taken from the National Kidney Disease Education Program and the [facility] Kidney Foundation literature.Reference ranges:60 or greater: Kqcsbd90-12 ( for 3 consecutive months): Chronic kidney disease 15 or less: Kidney failureCitizens Medical CenterGlucose Ifzel4682-73-05 12:07:00* Test Item Value Reference Range Interpretation Comments Glucose Level (test code = OEB0032) 91 74-118 [facility] CenterCalcium Dptjs5379-60-51 12:07:00* Test Item Value Reference Range Interpretation Comments Calcium Level (test code = 80630-8) 8.7 8.4-10.2 [facility] CenterWhite Blood Bosfv4882-95-94 11:49:00* Test Item Value Reference Range Interpretation Comments White Blood Count (test code = 6690-2) 13.12 4.8-10.8 H [facility] CenterRed Blood Szlel7853-96-91 11:49:00* Test Item Value Reference Range Interpretation Comments Red Blood Count (test code = 789-8) 3.31 3.6-5.1 L [facility] CenterHemoglobin2018-08-01 11:49:00* Test Item Value Reference Range Interpretation Comments Hemoglobin (test code = 10112-0) 10.2 12.0-16.0 L [facility] CenterHematocrit2018-08-01 11:49:00* Test Item Value Reference Range Interpretation Comments Hematocrit (test code = 4544-3) 31.5 34.2-44.1 L [facility] CenterMean Corpuscular Hrbjge6389-78-40 11:49:00* Test Item Value Reference Range Interpretation Comments Mean Corpuscular Volume (test code = 787-2) 95.2 81-99 [facility] CenterMean Corpuscular Kgbugjjvoy9393-22-21 11:49:00* Test Item Value Reference Range Interpretation Comments Mean Corpuscular Hemoglobin (test code = 785-6) 30.8 28-32 [facility] CenterMean Corpuscular Hemoglobin Concent 2018-02-07 11:49:00* Test Item Value Reference Range Interpretation Comments Mean Corpuscular Hemoglobin Concent (test code = 786-4) 32.4 31-35 [facility] CenterRed Cell Distribution Xaetq9269-26-36 11:49:00* Test Item Value Reference Range Interpretation Comments Red Cell Distribution Width (test code = 49052-8) 13.8 11.7 -14.4 [facility] CenterPlatelet Qurqd7743-47-79 11:49:00* Test Item Value Reference Range Interpretation Comments Platelet Count (test code = 777-3) 306 140-360 [facility] CenterNeutrophils (%) (Auto)2018-02-07 11:49:00 * Test Item Value Reference Range Interpretation Comments Neutrophils (%) (Auto) (test code = 69536-6) 78.7 38.7-80.0 [facility] CenterLymphocytes (%) (Auto)2018-02-07 11:49:00 * Test Item Value Reference Range Interpretation Comments Lymphocytes (%) (Auto) (test code = 736-9) 7.0 18.0-39.1 L [facility] CenterMonocytes (%) (Auto)2018-02-07 11:49:00* Test Item Value Reference Range Interpretation Comments Monocytes (%) (Auto) (test code = 5905-5) 7.2 4.4-11.3 [facility] CenterEosinophils (%) (Auto)2018-02-07 11:49:00 * Test Item Value Reference Range Interpretation Comments Eosinophils (%) (Auto) (test code = 713-8) 6.1 0.0-6.0 H [facility] CenterBasophils (%) (Auto)2018-02-07 11:49:00* Test Item Value Reference Range Interpretation Comments Basophils (%) (Auto) (test code = 706-2) 0.5 0.0-1.0 [facility] CenterIM GRANULOCYTES %2018-02-07 11:49:00* Test Item Value Reference Range Interpretation Comments IM GRANULOCYTES % (test code = IM GRANULOCYTES %) 0.5 0.0- 1.0 [facility] CenterNeutrophils # (Auto)2018-02-07 11:49:00* Test Item Value Reference Range Interpretation Comments Neutrophils # (Auto) (test code = 751-8) 10.3 2.1-6.9 H [facility] CenterLymphocytes # (Auto)2018-02-07 11:49:00* Test Item Value Reference Range Interpretation Comments Lymphocytes # (Auto) (test code = 87298-5) 0.9 1.0-3.2 L [facility] CenterMonocytes # (Auto)2018-02-07 11:49:00* Test Item Value Reference Range Interpretation Comments Monocytes # (Auto) (test code = 742-7) 1.0 0.2-0.8 H [facility] CenterEosinophils # (Auto)2018-02-07 11:49:00* Test Item Value Reference Range Interpretation Comments Eosinophils # (Auto) (test code = 711-2) 0.8 0.0-0.4 H [facility] CenterBasophils # (Auto)2018-02-07 11:49:00* Test Item Value Reference Range Interpretation Comments Basophils # (Auto) (test code = 704-7) 0.1 0.0-0.1 [facility] CenterAbsolute Immature Granulocyte (auto 2018-02-07 11:49:00* Test Item Value Reference Range Interpretation Comments Absolute Immature Granulocyte (auto (marika t code = Absolute Immature Granulocyte (auto) 0.07 0-0.1 [facility] CenterBedside Largksm6074-09-12 16:54:00* Test Item Value Reference Range Interpretation Comments Bedside Glucose (test code = 07479-2) 134 70-120 H Meter ID: [id number] [facility] CenterCHEST SINGLE (PORTABLE)2018-02-03 06:32:00 [address] [place] [address] Patient Name: JESS SCHULZ MR #: [id number] : 1930 Age/Sex: 87/F Req #: [id number] Adm Physician: SELINA HOLLIS MD Ordered by: SELINA HOLLIS MD Report #: [id number] Location: ICU Room/Bed: [address] [address] Procedure: [id number] DX/CHEST SINGLE (PORTABLE) Exam Date: 02/03/18 Exam Time: 0530 REPORT STATUS: Signed EXAM: CHEST SINGLE (PORTABLE), [...] SELINA HOLLIS MD CHEST SINGLE (PORTABLE)2018-02-02 06:45:00 [address] [place] [address] Patient Name: JESS SCHULZ MR #: [id number] : 1930 Age/Sex: 87/F Req #: [id number] Adm Physician: SELINA HOLLIS MD Ordered by: SELINA HOLLIS MD Report #: [id number] Location: ICU Room/Bed: ICU [facility] Procedure: [id number] DX/CHEST SINGLE (PORTABLE) Exam Date: 02/02/18 Exam Time: 0530 REPORT STATUS: Signed EXAM: CHEST SINGLE (PORTABLE), [...] Bilirubin (test code = 1975-2) 0.5 0.2-1.2 [facility] CenterAspartate Amino Transf (AST/SGOT) 2018-02-02 05:16:00* Test Item Value Reference Range Interpretation Comments Aspartate Amino Transf (AST/SGOT) (test code = Aspartate Amino Transf (AST/SGOT)) 33 5-34 [facility] CenterAlanine Aminotransferase (ALT/SGPT) 2018-02-02 05:16:00* Test Item Value Reference Range Interpretation Comments Alanine Aminotransferase (ALT/SGPT) (test code = 1742-6) 43 0-55 [facility] CenterTotal Fkdvhxr2488-33-90 05:16:00* Test Item Value Reference Range Interpretation Comments Total Protein (test code = 2885-2) 4.4 6.5-8.1 L [facility] CenterAlbumin2018-07-27 05:16:00* Test Item Value Reference Range Interpretation Comments Albumin (test code = 1751-7) 2.1 3.5-5.0 L [facility] CenterGlobulin2018-07-27 05:16:00* Test Item Value Reference Range Interpretation Comments Globulin (test code = 54624-8) 2.3 2.3-3.5 [facility] CenterAlbumin/Globulin Brsis6668-48-23 05:16:00 * Test Item Value Reference Range Interpretation Comments Albumin/Globulin Ratio (test code = 1759-0) 0.9 0.8-2.0 [facility] CenterAlkaline Nhuhvssryqs9499-56-74 05:16:00* Test Item Value Reference Range Interpretation Comments Alkaline Phosphatase (test code = 6768-6) 53 40-150 [facility] CenterCHEST SINGLE (PORTABLE)2018-02-01 05:58:00 [place] [address] Patient Name: JESS SCHULZ MR #: [id number] : 1930 Age/Sex: 87/F Req #: [id number] Adm Physician: SELINA HOLLIS MD Ordered by: SELINA HOLLIS MD Report #: [id number] Location: ICU Room/Bed: ICU 1941 Procedure: [id number] DX/CHEST SINGLE (PORTABLE) Exam Date: 02/01/18 Exam [...] TO: SELINA HOLLIS MD Differential Total Cells Rqrekpt5328-30-66 06:31:00* Test Item Value Reference Range Interpretation Comments Differential Total Cells Counted (test code = Differen tial Total Cells Counted) 100 [facility] CenterNeutrophils % (Manual)2018-01-31 06:31:00 * Test Item Value Reference Range Interpretation Comments Neutrophils % (Manual) (test code = 10907-6) 85 40-74 H [facility] CenterBand Neutrophils %2018-01-31 06:31:00* Test Item Value Reference Range Interpretation Comments Band Neutrophils % (test code = 764-1) 9 [facility] CenterLymphocytes % (Manual)2018-01-31 06:31:00 * Test Item Value Reference Range Interpretation Comments Lymphocytes % (Manual) (test code = 737-7) 1 19-48 L [facility] CenterMonocytes % (Manual)2018-01-31 06:31:00* Test Item Value Reference Range Interpretation Comments Monocytes % (Manual) (test code = 744-3) 5 3.4-9.0 [facility] CenterPlatelet Vzrmqjvj0086-22-71 06:31:00* Test Item Value Reference Range Interpretation Comments Platelet Estimate (test code = 79282-9) ADEQUATE [facility] CenterPlatelet Morphology Ezojuze8173-91-68 06:31:00* Test Item Value Reference Range Interpretation Comments Platelet Morphology Comment (test code = 95777-9) NORMAL [facility] CenterRed Cell Morphology Tcuyexw7575-67-57 06:31:00* Test Item Value Reference Range Interpretation Comments Red Cell Morphology Comment (test code = 6742-1) NORMAL [facility] CenterLactic Acid Capmq8633-09-04 05:10:00* Test Item Value Reference Range Interpretation Comments Lactic Acid Level (test code = Lactic Acid Level) 11.5 4.5- 19.8 [facility] CenterAmylase Dvjgs9732-23-69 05:10:00* Test Item Value Reference Range Interpretation Comments Amylase Level (test code = 1798-8) 57 25-125 [facility] CenterArterial Blood eK2090-68-52 01:59:00* Test Item Value Reference Range Interpretation Comments Arterial Blood pH (test code = 2744-1) 7.28 7.31-7.41 L [facility] CenterArterial Blood Partial Pressure CO2 2018-01-31 01:59:00* Test Item Value Reference Range Interpretation Comments Arterial Blood Partial Pressure CO2 (test code = 2019-02) 48 41-51 [facility] CenterArterial Blood Partial Pressure O2 2018-01-31 01:59:00* Test Item Value Reference Range Interpretation Comments Arterial Blood Partial Pressure O2 (test code = 2019-02) 90 80-105 [facility] CenterArterial Blood UWW04833-84-29 01:59:00* Test Item Value Reference Range Interpretation Comments Arterial Blood HCO3 (test code = 1960-4) 22 23-28 L [facility] CenterArterial Blood Base Bttrix7333-51-19 01:59:00* Test Item Value Reference Range Interpretation Comments Arterial Blood Base Excess (test code = 1925-7) -5.0 -2-3 L [facility] CenterArterial Blood Oxygen Saturation 2018-01-31 01:59:00* Test Item Value Reference Range Interpretation Comments Arterial Blood Oxygen Saturation (test code = 2708-6) 96.0 95-98 Pt on 3L [facility] 2018-01-30 17:08:00 [place] [address] Patient Name: JESS SCHULZ MR #: [id number] : 1930 Age/Sex: 87/F Req #: [id number] Adm Physician: SELINA HOLLIS MD Ordered by: LAZARO MERCADO MD Report #: [id number] Location: PACU V Room/Bed: V PACU-1 Procedure: [id number] DX/CHEST SINGLE (PORTABLE) Exam Date: 01/30/18 Exam Time: 1552 REPORT STATUS: Signed PROCEDURE: A single AP view of the c hest. COMPARISON: [facility], DX, CHEST SINGLE (PORTABLE), 09/10/2013, 11:17. [...] TO: LAZARO HSIEH MD ABDOMEN-1VIEW (KUB)2018-01-30 11:41:00 [place] [address] Patient Name: JESS SCHULZ MR #: [id number] : 1930 Age/Sex: 87/F Req #: [id number] Adm Physician: Ordered by: SELINA HOLLIS MD Report #: [id number] Location: ER Room/Bed: Procedure: [id number] DX/ABDOMEN-1VIEW (KUB) Exam D ate: 01/30/18 Exam Time: 1040 REPORT STATUS: Si gned PROCEDURE: ABDOMEN-1VIEW (KUB) COMPARISON: CT abdomen/pelvis 01/08. INDICATIONS: NASOGASTRIC TUBE [...] position in the thorax. [facility] refer [facility] for details of intraperitoneal air. Air filled colonic loops are not ed. Dictated by: DEVONTE AGUIRRE M.D. on 01/30/2018 at 11:41 Electronic ally approved by: DEVONTE AGUIRRE M.D. on 01/30/2018 at 11:41 Dictate d By: DEVONTE AGUIRRE MD 1141 T ranscribed By: CARRILLO on 01/30/18 1141 COPY TO: SELINA HOLLIS MD CT ABDOMEN/PELVIS [id number] 08:51:00 [place] [address] Patient Name: JESS SCHULZ MR #: [id number] : 1930 Age/Sex: 87/F Req #: [id number] Adm Physician: Ordered by: KEN GUERRERO MD Report #: [id number] Location: ER Room/Bed: Procedure: [id number] CT/CT ABDOMEN/PELVIS WO Exam Da te: 01/30/18 [...] at 8:51 Dictated By: DEVONTE AGUIRRE MD 0851 Transcribed By: CARRILLO on 01/30/18 08 51 COPY TO: KEN GUERRERO MD Urine IPH4174-11-45 07:49:00* Test Item Value Reference Range Interpretation Comments Urine WBC (test code = 5821-4) 6-10 0-5 H [facility] CenterUrine NNB5629-87-56 07:49:00* Test Item Value Reference Range Interpretation Comments Urine RBC (test code = 76439-3) 0-5 0-5 [facility] CenterU[facility] Klmfxywx2553-99-83 07:49:00* Test Item Value Reference Range Interpretation Comments Urine Bacteria (test code = 16491-7) MODERATE NONE H [facility] CenterUrine Epithelial Hkzrx2873-64-83 07:49:00 * Test Item Value Reference Range Interpretation Comments Urine Epithelial Cells (test code = 43460-0) MODERATE NONE [facility] CenterUrine Transitional Epithelial Cells 2018-01-30 07:49:00* Test Item Value Reference Range Interpretation Comments Urine Transitional Epithelial Cells (test code = 8249-5) RARE NONE H [facility] CenterUrine Hyaline Taolg9855-74-28 07:49:00* Test Item Value Reference Range Interpretation Comments Urine Hyaline Casts (test code = 93131-5) 2-5 0-1 H [facility] CenterUrine ILA6983-55-42 07:49:00* Test Item Value Reference Range Interpretation Comments Urine WBC (test code = 5821-4) 6-10 0-5 H [facility] CenterU[facility] IBE1905-41-55 07:49:00* Test Item Value Reference Range Interpretation Comments Urine RBC (test code = 39261-5) 0-5 0-5 [facility] CenterU[facility] Xlsrpzve4267-40-67 07:49:00* Test Item Value Reference Range Interpretation Comments Urine Bacteria (test code = 78601-1) MODERATE NONE H [facility] CenterUrine Epithelial Xtmwq9135-94-91 07:49:00 * Test Item Value Reference Range Interpretation Comments Urine Epithelial Cells (test code = 85306-8) MODERATE NONE [facility] CenterUrine Transitional Epithelial Cells 2018-01-30 07:49:00* Test Item Value Reference Range Interpretation Comments Urine Transitional Epithelial Cells (test code = 8249-5) RARE NONE H [facility] CenterU[facility] Hyaline Psagq0766-63-08 07:49:00* Test Item Value Reference Range Interpretation Comments Urine Hyaline Casts (test code = 54268-8) 2-5 0-1 H [facility] CenterU[facility] [id number] 07:49:00* Test Item Value Reference Range Interpretation Comments Urine WBC (test code = 5821-4) 6-10 0-5 H [facility] CenterUrine FUR1211-36-54 07:49:00* Test Item Value Reference Range Interpretation Comments Urine RBC (test code = 82858-8) 0-5 0-5 [facility] CenterU[facility] Zomgnavw6904-20-24 07:49:00* Test Item Value Reference Range Interpretation Comments Urine Bacteria (test code = 43916-9) MODERATE NONE H [facility] CenterUrine Epithelial Xjvec4069-23-84 07:49:00 * Test Item Value Reference Range Interpretation Comments Urine Epithelial Cells (test code = 17229-8) MODERATE NONE [facility] CenterUrine Transitional Epithelial Cells 2018-01-30 07:49:00* Test Item Value Reference Range Interpretation Comments Urine Transitional Epithelial Cells (test code = 8249-5) RARE NONE H [facility] Hyaline Okrhr3853-90-93 07:49:00* Test Item Value Reference Range Interpretation Comments Urine Hyaline Casts (test code = 38583-2) 2-5 0-1 H [facility] CenterUrine Tufrw1868-65-92 07:44:00* Test Item Value Reference Range Interpretation Comments Urine Color (test code = 5778-6) YELLOW YELLOW [facility] CenterU[facility] Tlkgjqg8394-57-92 07:44:00* Test Item Value Reference Range Interpretation Comments Urine Clarity (test code = 44063-7) CLOUDY CLEAR H [facility] CenterUrine Specific Tvjyuir1427-78-74 07:44:00 * Test Item Value Reference Range Interpretation Comments Urine Specific [place] (test code = 5811-5) 1.030 1.010-1.02 5 H [facility] CenterUrine oZ8714-54-65 07:44:00* Test Item Value Reference Range Interpretation Comments Urine pH (test code = 33511-1) 6 5-7 [facility] CenterU[facility] Leukocyte Tdqwsdnv4694-58-27 07:44:00* Test Item Value Reference Range Interpretation Comments Urine Leukocyte Esterase (test code = 5799-2) NEGATIVE NEGATIVE [facility] CenterUrine Snmvrko9276-69-01 07:44:00* Test Item Value Reference Range Interpretation Comments Urine Nitrite (test code = 07874-2) NEGATIVE NEGATIVE [facility] CenterU[facility] Irzzyij0887-65-43 07:44:00* Test Item Value Reference Range Interpretation Comments Urine Protein (test code = 5804-0) 2+ NEGATIVE [facility])2018-01-30 07:44:00* Test Item Value Reference Range Interpretation Comments Urine Glucose (UA) (test code = 2349-9) NEGATIVE NEGATIVE [facility] Hkfffid4975-06-92 07:44:00* Test Item Value Reference Range Interpretation Comments Urine Ketones (test code = 20189-4) TRACE NEGATIVE H [facility] Igxblvoywoxb6136-88-17 07:44:00* Test Item Value Reference Range Interpretation Comments Urine Urobilinogen (test code = 02473-1) 0.2 0.2-1 [facility] Lzaijkbwl4873-27-60 07:44:00* Test Item Value Reference Range Interpretation Comments Urine Bilirubin (test code = 1978-6) 1+ NEGATIVE H [facility] Oeapb5041-47-27 07:44:00* Test Item Value Reference Range Interpretation Comments Urine Blood (test code = 83428-0) 1+ NEGATIVE H [facility] Umqib4186-99-16 07:44:00* Test Item Value Reference Range Interpretation Comments Urine Color (test code = 5778-6) YELLOW YELLOW [facility] Fpphjbx6763-36-85 07:44:00* Test Item Value Reference Range Interpretation Comments Urine Clarity (test code = 37428-8) CLOUDY CLEAR H [facility] CenterU[facility] Specific Wfrruov3083-55-18 07:44:00 * Test Item Value Reference Range Interpretation Comments Urine Specific Karval (test code = 5811-5) 1.030 1.010-1.02 5 H [facility] iL7036-86-99 07:44:00* Test Item Value Reference Range Interpretation Comments Urine pH (test code = 97734-3) 6 5-7 [facility] Leukocyte Gipfxwsu4542-63-11 07:44:00* Test Item Value Reference Range Interpretation Comments Urine Leukocyte Esterase (test code = 5799-2) NEGATIVE NEGATIVE [facility] Hgejrqb4295-59-62 07:44:00* Test Item Value Reference Range Interpretation Comments Urine Nitrite (test code = 68646-0) NEGATIVE NEGATIVE [facility] Yuchzhr9271-13-50 07:44:00* Test Item Value Reference Range Interpretation Comments Urine Protein (test code = 5804-0) 2+ NEGATIVE H [facility] Glucose (UA)2018-01-30 07:44:00* Test Item Value Reference Range Interpretation Comments Urine Glucose (UA) (test code = 2349-9) NEGATIVE NEGATIVE [facility] Krhobyj0098-50-31 07:44:00* Test Item Value Reference Range Interpretation Comments Urine Ketones (test code = 55270-6) TRACE NEGATIVE H [facility] Sjewzopqfqay2281-22-78 07:44:00* Test Item Value Reference Range Interpretation Comments Urine Urobilinogen (test code = 98679-7) 0.2 0.2-1 [facility] Rqwmchycl3265-49-09 07:44:00* Test Item Value Reference Range Interpretation Comments Urine Bilirubin (test code = 1978-6) 1+ NEGATIVE H [facility] Fjece2942-00-63 07:44:00* Test Item Value Reference Range Interpretation Comments Urine Blood (test code = 86889-8) 1+ NEGATIVE H [facility] Bkylm3830-23-74 07:44:00* Test Item Value Reference Range Interpretation Comments Urine Color (test code = 5778-6) YELLOW YELLOW [facility] Mxxppbb7733-62-59 07:44:00* Test Item Value Reference Range Interpretation Comments Urine Clarity (test code = 33014-7) CLOUDY CLEAR H [facility] CenterU[facility] Specific Wgfqxlm4389-13-70 07:44:00 * Test Item Value Reference Range Interpretation Comments Urine Specific Karval (test code = 5811-5) 1.030 1.010-1.02 5 H [facility] cF6828-78-45 07:44:00* Test Item Value Reference Range Interpretation Comments Urine pH (test code = 88769-5) 6 5-7 [facility] Leukocyte Scazrmzo8974-24-02 07:44:00* Test Item Value Reference Range Interpretation Comments Urine Leukocyte Esterase (test code = 5799-2) NEGATIVE NEGATIVE [facility] Pqeibtb2479-35-45 07:44:00* Test Item Value Reference Range Interpretation Comments Urine Nitrite (test code = 86382-5) NEGATIVE NEGATIVE [facility] Czxaltj8988-77-44 07:44:00* Test Item Value Reference Range Interpretation Comments Urine Protein (test code = 5804-0) 2+ NEGATIVE H [facility] CenterU[facility] Glucose (UA)2018-01-30 07:44:00* Test Item Value Reference Range Interpretation Comments Urine Glucose (UA) (test code = 2349-9) NEGATIVE NEGATIVE [facility] Ijuvvyh4520-20-25 07:44:00* Test Item Value Reference Range Interpretation Comments Urine Ketones (test code = 46847-7) TRACE NEGATIVE H [facility] Awjgrqyztped6392-13-77 07:44:00* Test Item Value Reference Range Interpretation Comments Urine Urobilinogen (test code = 54092-5) 0.2 0.2-1 [facility] Rivwjnast7789-18-35 07:44:00* Test Item Value Reference Range Interpretation Comments Urine Bilirubin (test code = 1978-6) 1+ NEGATIVE H [facility] CenterU[facility] Hsyck5170-53-85 07:44:00* Test Item Value Reference Range Interpretation Comments Urine Blood (test code = 69255-4) 1+ NEGATIVE H [facility] CenterCreatine Kinase CG5915-41-36 07:00:00* Test Item Value Reference Range Interpretation Comments Creatine Kinase MB (test code = 17482-7) 1.40 0-5.0 [facility] CenterTroponin H6440-78-58 07:00:00* Test Item Value Reference Range Interpretation Comments Troponin I (test code = DWZ6341) 0.008 0-0.300 [facility] CenterCreatine Kinase VD6936-32-01 07:00:00* Test Item Value Reference Range Interpretation Comments Creatine Kinase MB (test code = 06451-9) 1.40 0-5.0 [facility] CenterTroponin K2201-28-31 07:00:00* Test Item Value Reference Range Interpretation Comments Troponin I (test code = FHM1934) 0.008 0-0.300 [facility] CenterCreatine Kinase WE9554-97-11 07:00:00* Test Item Value Reference Range Interpretation Comments Creatine Kinase MB (test code = 00705-7) 1.40 0-5.0 [facility] CenterTroponin D4382-46-03 07:00:00* Test Item Value Reference Range Interpretation Comments Troponin I (test code = HRZ2507) 0.008 0-0.300 [facility] Uoucc6958-37-88 06:56:00* Test Item Value Reference Range Interpretation Comments Sodium Level (test code = 2951-2) 129 136-145 L [facility] CenterPotassium Qczpy4522-37-70 06:56:00* Test Item Value Reference Range Interpretation Comments Potassium Level (test code = 2823-3) 4.5 3.5-5.1 [facility] CenterChloride Wpijs3984-26-97 06:56:00* Test Item Value Reference Range Interpretation Comments Chloride Level (test code = 2075-0) 92 98-107 L [facility] CenterCarbon Dioxide Caekp8054-86-39 06:56:00* Test Item Value Reference Range Interpretation Comments Carbon Dioxide Level (test code = 2028-9) 26 22-29 [facility] CenterAnion Gsa6444-25-60 06:56:00* Test Item Value Reference Range Interpretation Comments Anion Gap (test code = 55737-4) 15.5 8-16 [facility] CenterBlood Urea Vtcdutbj8024-35-39 06:56:00* Test Item Value Reference Range Interpretation Comments Blood Urea Nitrogen (test code = 3094-0) 29 7-26 H [facility] CenterCreatinine2018-07-24 06:56:00* Test Item Value Reference Range Interpretation Comments Creatinine (test code = 2160-0) 1.73 0.57-1.11 H [facility] CenterBUN/Creatinine Ogqfp0068-98-73 06:56:00* Test Item Value Reference Range Interpretation Comments BUN/Creatinine Ratio (test code = 3097-3) 17 6-25 [facility] CenterEstimat Glomerular Filtration Rate 2018-01-30 06:56:00* Test Item Value Reference Range Interpretation Comments Estimat Glomerular Filtration Rate (test code = 30399-9) 28 >60 L Ranges were taken from the National Kidney Disease Education Program and the [facility] literature.Reference ranges:60 or greater: Vdychz15-12 ( for 3 consecutive months): Chronic kidney disease 15 or less: Kidney failureCitizens Medical CenterGlucose Dqrkk4591-81-10 06:56:00* Test Item Value Reference Range Interpretation Comments Glucose Level (test code = RBZ3112) 169 74-118 H [facility] CenterCalcium Uduoj6246-67-34 06:56:00* Test Item Value Reference Range Interpretation Comments Calcium Level (test code = 68247-2) 10.1 8.4-10.2 [facility] CenterLactic Acid Rqdap1780-88-61 06:56:00* Test Item Value Reference Range Interpretation Comments Lactic Acid Level (test code = Lactic Acid Level) 16.7 4.5- 19.8 [facility]Tok[facility] Hcijwiqqw7373-68-36 06:56:00* Test Item Value Reference Range Interpretation Comments Total Bilirubin (test code = 1975-2) 0.8 0.2-1.2 [facility] CenterAspartate Amino Transf (AST/SGOT) 2018-01-30 06:56:00* Test Item Value Reference Range Interpretation Comments Aspartate Amino Transf (AST/SGOT) (test code = Aspartate Amino Transf (AST/SGOT)) 16 5-34 [facility] CenterAlanine Aminotransferase (ALT/SGPT) 2018-01-30 06:56:00* Test Item Value Reference Range Interpretation Comments Alanine Aminotransferase (ALT/SGPT) (test code = 1742-6) 10 0-55 [facility] CenterTotal Ibulomf0386-74-18 06:56:00* Test Item Value Reference Range Interpretation Comments Total Protein (test code = 2885-2) 7.2 6.5-8.1 [facility] CenterAlbumin2018-07-24 06:56:00* Test Item Value Reference Range Interpretation Comments Albumin (test code = 1751-7) 3.8 3.5-5.0 [facility] CenterGlobulin2018-07-24 06:56:00* Test Item Value Reference Range Interpretation Comments Globulin (test code = 24170-7) 3.4 2.3-3.5 [facility] CenterAlbumin/Globulin Wromc7646-97-19 06:56:00 * Test Item Value Reference Range Interpretation Comments Albumin/Globulin Ratio (test code = 1759-0) 1.1 0.8-2.0 [facility] CenterAlkaline Tvrthkzuari6626-98-94 06:56:00* Test Item Value Reference Range Interpretation Comments Alkaline Phosphatase (test code = 6768-6) 82 40-150 [facility] CenterCreatine Arwkbx2342-07-77 06:56:00* Test Item Value Reference Range Interpretation Comments Creatine Kinase (test code = 2157-6) 37 29-168 [facility] CenterAmylase Xkwah9292-47-89 06:56:00* Test Item Value Reference Range Interpretation Comments Amylase Level (test code = 1798-8) 61 25-125 [facility] CenterLipase2018-07-24 06:56:00* Test Item Value Reference Range Interpretation Comments Lipase (test code = 3040-3) 57 8-78 [facility] Fpnyn1528-10-11 06:56:00* Test Item Value Reference Range Interpretation Comments Sodium Level (test code = 2951-2) 129 136-145 L [facility] CenterPotassium Twdxc0480-29-48 06:56:00* Test Item Value Reference Range Interpretation Comments Potassium Level (test code = 2823-3) 4.5 3.5-5.1 [facility] CenterChloride Calfk6161-11-76 06:56:00* Test Item Value Reference Range Interpretation Comments Chloride Level (test code = 2075-0) 92 98-107 L [facility] CenterCarbon Dioxide Qrsgz2975-02-15 06:56:00* Test Item Value Reference Range Interpretation Comments Carbon Dioxide Level (test code = 2028-9) 26 22-29 [facility] CenterAnion Qwy8990-49-17 06:56:00* Test Item Value Reference Range Interpretation Comments Anion Gap (test code = 22603-4) 15.5 8-16 [facility] CenterBlood Urea Fjanfluf0732-91-30 06:56:00* Test Item Value Reference Range Interpretation Comments Blood Urea Nitrogen (test code = 3094-0) 29 7-26 H [facility] CenterCreatinine2018-07-24 06:56:00* Test Item Value Reference Range Interpretation Comments Creatinine (test code = 2160-0) 1.73 0.57-1.11 H [facility] CenterBUN/Creatinine Cykha3843-77-90 06:56:00* Test Item Value Reference Range Interpretation Comments BUN/Creatinine Ratio (test code = 3097-3) 17 6-25 [facility] CenterEstimat Glomerular Filtration Rate 2018-01-30 06:56:00* Test Item Value Reference Range Interpretation Comments Estimat Glomerular Filtration Rate (test code = 84210-9) 28 >60 L Ranges were taken from the National Kidney Disease Education Program and the [facility] Kidney Foundation literature.Reference ranges:60 or greater: Udvgix51-33 ( for 3 consecutive months): Chronic kidney disease 15 or less: Kidney failureCitizens Medical CenterGlucose Nzvst1119-19-54 06:56:00* Test Item Value Reference Range Interpretation Comments Glucose Level (test code = NGB2257) 169 74-118 H [facility] CenterCalcium Attbf0901-31-96 06:56:00* Test Item Value Reference Range Interpretation Comments Calcium Level (test code = 00268-6) 10.1 8.4-10.2 [facility] CenterLactic Acid Wzdmr0302-42-01 06:56:00* Test Item Value Reference Range Interpretation Comments Lactic Acid Level (test code = Lactic Acid Level) 16.7 4.5- 19.8 [facility] CenterTotal Xsgipylav9233-70-35 06:56:00* Test Item Value Reference Range Interpretation Comments Total Bilirubin (test code = 1975-2) 0.8 0.2-1.2 [facility] CenterAspartate Amino Transf (AST/SGOT) 2018-01-30 06:56:00* Test Item Value Reference Range Interpretation Comments Aspartate Amino Transf (AST/SGOT) (test code = Aspartate Amino Transf (AST/SGOT)) 16 5-34 [facility] CenterAlanine Aminotransferase (ALT/SGPT) 2018-01-30 06:56:00* Test Item Value Reference Range Interpretation Comments Alanine Aminotransferase (ALT/SGPT) (test code = 1742-6) 10 0-55 [facility] CenterTotal Wmbguna1569-89-61 06:56:00* Test Item Value Reference Range Interpretation Comments Total Protein (test code = 2885-2) 7.2 6.5-8.1 [facility] CenterAlbumin2018-07-24 06:56:00* Test Item Value Reference Range Interpretation Comments Albumin (test code = 1751-7) 3.8 3.5-5.0 [facility] CenterGlobulin2018-07-24 06:56:00* Test Item Value Reference Range Interpretation Comments Globulin (test code = 25707-9) 3.4 2.3-3.5 [facility] CenterAlbumin/Globulin Fhbjx3369-30-00 06:56:00 * Test Item Value Reference Range Interpretation Comments Albumin/Globulin Ratio (test code = 1759-0) 1.1 0.8-2.0 [facility] CenterAlkaline Qrabmxrkngx0503-30-91 06:56:00* Test Item Value Reference Range Interpretation Comments Alkaline Phosphatase (test code = 6768-6) 82 40-150 [facility] CenterCreatine Ihpsua2232-13-74 06:56:00* Test Item Value Reference Range Interpretation Comments Creatine Kinase (test code = 2157-6) 37 29-168 [facility] CenterAmylase Ftevw7192-08-30 06:56:00* Test Item Value Reference Range Interpretation Comments Amylase Level (test code = 1798-8) 61 25-125 [facility] CenterLipase2018-07-24 06:56:00* Test Item Value Reference Range Interpretation Comments Lipase (test code = 3040-3) 57 8-78 [facility] CenterCreatine Ogjefj5916-59-95 06:56:00* Test Item Value Reference Range Interpretation Comments Creatine Kinase (test code = 2157-6) 37 29-168 [facility] CenterLipase2018-07-24 06:56:00* Test Item Value Reference Range Interpretation Comments Lipase (test code = 3040-3) 57 8-78 [facility] CenterProthrombin Lzgs5982-55-77 06:51:00* Test Item Value Reference Range Interpretation Comments Prothrombin Time (test code = 5902-2) 12.5 11.9-14.5 [facility] CenterProthromb Time International Ratio 2018-01-30 06:51:00* Test Item Value Reference Range Interpretation Comments Prothromb Time International Ratio (test code = 6301-6) 1.01 Oral Anticoagulant Therapy INR Values:1. Low Intensity Therapy 1.5 - 2.02 . Moderate Intensity Therapy 2.0 - 3.03. High Intensity Therapy(1) 2.5 - 3. 54. High Intensity Therapy(2) 3.0 - 4.05. Panic Value INR > 5.0 [facility] CenterActivated Partial Thromboplast Time 2018-01-30 06:51:00* Test Item Value Reference Range Interpretation Comments Activated Partial Thromboplast Time (test code = 05639-1) 29.7 23.8-35.5 [facility] CenterProthrombin Fxrh8027-57-04 06:51:00* Test Item Value Reference Range Interpretation Comments Prothrombin Time (test code = 5902-2) 12.5 11.9-14.5 [facility] CenterProthromb Time International Ratio 2018-01-30 06:51:00* Test Item Value Reference Range Interpretation Comments Prothromb Time International Ratio (test code = 6301-6) 1.01 Oral Anticoagulant Therapy INR Values:1. Low Intensity Therapy 1.5 - 2.02 . Moderate Intensity Therapy 2.0 - 3.03. High Intensity Therapy(1) 2.5 - 3. 54. High Intensity Therapy(2) 3.0 - 4.05. Panic Value INR > 5.0 [facility] CenterActivated Partial Thromboplast Time 2018-01-30 06:51:00* Test Item Value Reference Range Interpretation Comments Activated Partial Thromboplast Time (test code = 17601-2) 29.7 23.8-35.5 [facility] CenterProthrombin Bwvm0088-48-92 06:51:00* Test Item Value Reference Range Interpretation Comments Prothrombin Time (test code = 5902-2) 12.5 11.9-14.5 [facility] CenterProthromb Time International Ratio 2018-01-30 06:51:00* Test Item Value Reference Range Interpretation Comments Prothromb Time International Ratio (test code = 6301-6) 1.01 Oral Anticoagulant Therapy INR Values:1. Low Intensity Therapy 1.5 - 2.02 . Moderate Intensity Therapy 2.0 - 3.03. High Intensity Therapy(1) 2.5 - 3. 54. High Intensity Therapy(2) 3.0 - 4.05. Panic Value INR > 5.0 [facility] CenterActivated Partial Thromboplast Time 2018-01-30 06:51:00* Test Item Value Reference Range Interpretation Comments Activated Partial Thromboplast Time (test code = 02002-3) 29.7 23.8-35.5 [facility] CenterWhite Blood Puekb9157-13-21 06:35:00* Test Item Value Reference Range Interpretation Comments White Blood Count (test code = 6690-2) 11.43 4.8-10.8 H [facility] CenterRed Blood Ddznq0550-32-08 06:35:00* Test Item Value Reference Range Interpretation Comments Red Blood Count (test code = 789-8) 4.41 3.6-5.1 [facility] CenterHemoglobin2018-07-24 06:35:00* Test Item Value Reference Range Interpretation Comments Hemoglobin (test code = 11282-1) 13.4 12.0-16.0 [facility] CenterHematocrit2018-07-24 06:35:00* Test Item Value Reference Range Interpretation Comments Hematocrit (test code = 4544-3) 40.5 34.2-44.1 [facility] CenterMean Corpuscular Tkvtxb6551-72-78 06:35:00* Test Item Value Reference Range Interpretation Comments Mean Corpuscular Volume (test code = 787-2) 91.8 81-99 [facility] CenterMean Corpuscular Iqkodyravt0060-56-78 06:35:00* Test Item Value Reference Range Interpretation Comments Mean Corpuscular Hemoglobin (test code = 785-6) 30.4 28-32 [facility] Hem[facility] Concent 2018-01-30 06:35:00* Test Item Value Reference Range Interpretation Comments Mean Corpuscular Hemoglobin Concent (test code = 786-4) 33.1 31-35 [facility] CenterRed Cell Distribution Fmmdp6755-79-18 06:35:00* Test Item Value Reference Range Interpretation Comments Red Cell Distribution Width (test code = 39388-9) 12.8 11.7 -14.4 [facility] CenterPlatelet Auqbf1674-87-08 06:35:00* Test Item Value Reference Range Interpretation Comments Platelet Count (test code = 777-3) 388 140-360 H [facility] CenterNeutrophils (%) (Auto)2018-01-30 06:35:00 * Test Item Value Reference Range Interpretation Comments Neutrophils (%) (Auto) (test code = 68802-8) 78.6 38.7-80.0 [facility] CenterLymphocytes (%) (Auto)2018-01-30 06:35:00 * Test Item Value Reference Range Interpretation Comments Lymphocytes (%) (Auto) (test code = 736-9) 13.4 18.0-39.1 L [facility] CenterMonocytes (%) (Auto)2018-01-30 06:35:00* Test Item Value Reference Range Interpretation Comments Monocytes (%) (Auto) (test code = 5905-5) 5.0 4.4-11.3 [facility] CenterEosinophils (%) (Auto)2018-01-30 06:35:00 * Test Item Value Reference Range Interpretation Comments Eosinophils (%) (Auto) (test code = 713-8) 2.0 0.0-6.0 [facility] CenterBasophils (%) (Auto)2018-01-30 06:35:00* Test Item Value Reference Range Interpretation Comments Basophils (%) (Auto) (test code = 706-2) 0.3 0.0-1.0 [facility] CenterIM GRANULOCYTES %2018-01-30 06:35:00* Test Item Value Reference Range Interpretation Comments IM GRANULOCYTES % (test code = IM GRANULOCYTES %) 0.7 0.0- 1.0 [facility] CenterNeutrophils # (Auto)2018-01-30 06:35:00* Test Item Value Reference Range Interpretation Comments Neutrophils # (Auto) (test code = 751-8) 9.0 2.1-6.9 H [facility] CenterLymphocytes # (Auto)2018-01-30 06:35:00* Test Item Value Reference Range Interpretation Comments Lymphocytes # (Auto) (test code = 53881-2) 1.5 1.0-3.2 [facility] CenterMonocytes # (Auto)2018-01-30 06:35:00* Test Item Value Reference Range Interpretation Comments Monocytes # (Auto) (test code = 742-7) 0.6 0.2-0.8 [facility] CenterEosinophils # (Auto)2018-01-30 06:35:00* Test Item Value Reference Range Interpretation Comments Eosinophils # (Auto) (test code = 711-2) 0.2 0.0-0.4 [facility] CenterBasophils # (Auto)2018-01-30 06:35:00* Test Item Value Reference Range Interpretation Comments Basophils # (Auto) (test code = 704-7) 0.0 0.0-0.1 [facility] CenterAbsolute Immature Granulocyte (auto 2018-01-30 06:35:00* Test Item Value Reference Range Interpretation Comments Absolute Immature Granulocyte (auto (marika t code = Absolute Immature Granulocyte (auto) 0.08 0-0.1 [facility] CenterWhite Blood Pbtqf1934-51-63 06:35:00* Test Item Value Reference Range Interpretation Comments White Blood Count (test code = 6690-2) 11.43 4.8-10.8 H [facility] CenterRed Blood Zpsjx1507-03-36 06:35:00* Test Item Value Reference Range Interpretation Comments Red Blood Count (test code = 789-8) 4.41 3.6-5.1 [facility] CenterHemoglobin2018-07-24 06:35:00* Test Item Value Reference Range Interpretation Comments Hemoglobin (test code = 89977-3) 13.4 12.0-16.0 [facility] CenterHematocrit2018-07-24 06:35:00* Test Item Value Reference Range Interpretation Comments Hematocrit (test code = 4544-3) 40.5 34.2-44.1 [facility] CenterMean Corpuscular Xvtcph6994-38-09 06:35:00* Test Item Value Reference Range Interpretation Comments Mean Corpuscular Volume (test code = 787-2) 91.8 81-99 [facility] CenterMean Corpuscular Cbwdhzroje6380-91-95 06:35:00* Test Item Value Reference Range Interpretation Comments Mean Corpuscular Hemoglobin (test code = 785-6) 30.4 28-32 [facility] CenterMean Corpuscular Hemoglobin Concent 2018-01-30 06:35:00* Test Item Value Reference Range Interpretation Comments Mean Corpuscular Hemoglobin Concent (test code = 786-4) 33.1 31-35 [facility] CenterRed Cell Distribution Lemmo7699-84-11 06:35:00* Test Item Value Reference Range Interpretation Comments Red Cell Distribution Width (test code = 35672-1) 12.8 11.7 -14.4 [facility] CenterPlatelet Wiqok5426-50-00 06:35:00* Test Item Value Reference Range Interpretation Comments Platelet Count (test code = 777-3) 388 140-360 H [facility] CenterNeutrophils (%) (Auto)2018-01-30 06:35:00 * Test Item Value Reference Range Interpretation Comments Neutrophils (%) (Auto) (test code = 57878-1) 78.6 38.7-80.0 [facility] CenterLymphocytes (%) (Auto)2018-01-30 06:35:00 * Test Item Value Reference Range Interpretation Comments Lymphocytes (%) (Auto) (test code = 736-9) 13.4 18.0-39.1 L [facility] CenterMonocytes (%) (Auto)2018-01-30 06:35:00* Test Item Value Reference Range Interpretation Comments Monocytes (%) (Auto) (test code = 5905-5) 5.0 4.4-11.3 [facility] CenterEosinophils (%) (Auto)2018-01-30 06:35:00 * Test Item Value Reference Range Interpretation Comments Eosinophils (%) (Auto) (test code = 713-8) 2.0 0.0-6.0 [facility] CenterBasophils (%) (Auto)2018-01-30 06:35:00* Test Item Value Reference Range Interpretation Comments Basophils (%) (Auto) (test code = 706-2) 0.3 0.0-1.0 [facility] CenterIM GRANULOCYTES %2018-01-30 06:35:00* Test Item Value Reference Range Interpretation Comments IM GRANULOCYTES % (test code = IM GRANULOCYTES %) 0.7 0.0- 1.0 [facility] CenterNeutrophils # (Auto)2018-01-30 06:35:00* Test Item Value Reference Range Interpretation Comments Neutrophils # (Auto) (test code = 751-8) 9.0 2.1-6.9 H [facility] CenterLymphocytes # (Auto)2018-01-30 06:35:00* Test Item Value Reference Range Interpretation Comments Lymphocytes # (Auto) (test code = 58768-5) 1.5 1.0-3.2 [facility] CenterMonocytes # (Auto)2018-01-30 06:35:00* Test Item Value Reference Range Interpretation Comments Monocytes # (Auto) (test code = 742-7) 0.6 0.2-0.8 [facility] CenterEosinophils # (Auto)2018-01-30 06:35:00* Test Item Value Reference Range Interpretation Comments Eosinophils # (Auto) (test code = 711-2) 0.2 0.0-0.4 [facility]2018-01-30 06:35:00* Test Item Value Reference Range Interpretation Comments Basophils # (Auto) (test code = 704-7) 0.0 0.0-0.1 [facility] (auto 2018-01-30 06:35:00* Test Item Value Reference Range Interpretation Comments Absolute Immature Granulocyte (auto (marika t code = Absolute Immature Granulocyte (auto) 0.08 0-0.1 [facility] [address] [place] [address] Patient Name: JESS SCHULZ MR #: [id number] : 1930 Age/Sex: 87/F Req #: [id number] Adm Physician: Ordered by: GARIMA GREENBERG (NON STAFF) Report #: [id number] Location: [facility] Room/Bed: Procedure: [id number] DX/THORACIC SPINE 2VW E xam Date: 10/26/17 Exam Time: 1100 REPORT STATU S: Signed PROCEDURE: THORACIC SPINE 2VW COMPARISON: Patients [facility], DX, SP LUMBAR, COMPLETE MIN 4VW, 10/26/2017, 11:01. Patients [facility], DX, CHEST SINGLE (PORTABLE), 09/10/2013, 11:17. INDICATIONS: [...] (NON STAFF) SP LUMBAR, COMPLETE MIN 4VW [place] [address] Patient Name: JESS SCHULZ MR #: [id number] : 1930 Age/Sex: 87/F Req #: [id number] Adm Physician: Ordered by: GARIMA GREENBERG (NON STAFF) Report #: [id number] Location: [facility] Room/Bed: Procedure: [id number] DX/SP LUMBAR, COMPLETE M IN 4VW Exam [...]
--- OUTSIDE RECORDS SUMMARY | 2020-05-26 18:11 | XMS REPORT | Continuity of Care Document ---
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, LUMBAR REGION Active 11/02/2017 [place] N18.3 - "CHRONIC KIDNEY DISEASE, STAGE" Active 05/24/2016 [facility] RADICULOPATHY, LUMBAR REGION A ctive [facility] Medications No Data Provided for This Section Allergies, Adverse Reactions, Alerts No Known Medication Allergies Immunizations No Data Provided for This Section Results No Data Provided for This Section Pathology Reports No Data Provided for This Section Diagnostic Reports Report Value Date Source Spine lumbar wo contrast MRI P atient Name: JESS SCHULZ : 1930; Age: 87 years y/o Female MR: [id number] Study: Spine lumbar wo contrast MRI 11/10/2017 [...] the combined task forces of the [place] [employer], the [place] [employer] Spine Radiology and the [place] Society of Neuroradiology, The Spine Journal 2014. SL: ZAYNAB 11/10/2017 [facility] Bladder US EXAM: Retroperitone al limited US, [...] aorta which measures 2.7 cm. 05/26/2016 [facility] Retroperitoneal limited US EXA M: Retroperitoneal limited [...] Provider ADM Date DC Date Status Source [facility] [id number] Camron Pandya 05/26/2016 05/27/2016 LEODAN Ortez [facility] [id number] Esteban Leyva 11/10/2017 11/11/2017 [facility] Procedures No Data Provided for This Section Assessment and Plan No Data Provided for This Section Plan of Care No Data Provided for This Section Social History Social History Date Source No data available for this section 11/11/2017 [facility] No data available for this section 05/27/2016 LEODAN Ortez Family History No Data Provided for This Section Advance Directives No Data Provided for This Section Functional Status No Data Provided for This Section
[2020-05-26 18:19] LABS: BILIRUBIN,URINE NEGATIVE (NEGATIVE); CLARITY,URINE SL CLOUDY (CLEAR); COLOR,URINE STRAW (YELLOW); KETONES,URINE NEGATIVE (NEGATIVE); LEUKOCYTE ESTERASE ,URINE NEGATIVE (NEGATIVE); NITRITE,URINE NEGATIVE (NEGATIVE); PROTEIN,URINE DIPSTICK 1+ (NEGATIVE); URINE UROBILINOGEN 0.2 mg/dL (0.2 - 1)
--- NOTE | 2020-05-26 18:24 | Diagnostic Imaging Report ---
Exam: Head CT without contrast History: Trauma, fall, pain Comparison studies: No prior exams are available on the PACS for comparison at the time of dictation. Technique: Axial images were obtained from the skull base to the vertex. Coronal and sagittal images reconstructed from the axial data. Dose modulation, iterative reconstruction, and/or weight based adjustment of the mA/kV was utilized to reduce the radiation dose to as low as reasonably achievable. Radiation dose: Total DLP: 921 mGy*cm. Estimated effective dose: DLP x 0.015 Intravenous contrast: None Findings: Scalp: No abnormalities. Bones: No fractures, blastic or lytic lesions. Brain sulci: Moderately probably. Ventricles: Moderate compensatory dilatation. No hydrocephalus. Extra-axial spaces: No masses, no fluid collection. Parenchyma: Chronic cortical/subcortical insults with encephalomalacia and gliosis in the right frontal and right parietal lobes in a watershed distribution along the right MCA border zone. Ill-defined and confluent hypodensities in the supratentorial white matter are nonspecific but are most compatible with chronic microvascular ischemic changes. Similar findings were described on the prior head CT of 10/28/2011 moreover, these images are unavailable on the PACS for comparison the time of dictation. No mass, acute hemorrhage or acute cortical insult.. Sellar/suprasellar region: No abnormalities. Craniocervical junction: Patent foramen magnum. No Chiari one malformation. Incidental findings: Bilateral intraocular lens replacements. Chronic inflammatory changes at the right mastoid tip. Atherosclerotic calcifications in the carotid siphons and intradural vertebral arteries. IMPRESSION: No acute abnormalities. Chronic findings: 1. Moderate generalized parenchymal volume loss. 2. Chronic right frontal and parietal infarcts in a watershed distribution along the right MCA border zones. 3. Severe chronic small vessel ischemic changes. Signed by: Dr. Eleuterio Malin M.D. on 05/26/2020 6:21 PM
[2020-05-26 18:26] LABS: AMORPHOUS SEDIMENT,URINE FEW (FEW); BACTERIA,URINE MODERATE /HPF; EPITHELIAL CELLS,URINE MODERATE /LPF; WBC,URINE (MAN) 0-5 /HPF (0-5)
--- NOTE | 2020-05-26 19:02 | Diagnostic Imaging Report ---
EXAM: CT Abdomen and Pelvis WITH contrast INDICATION: Abd pain, Diffuse ^[id number] ^1800 COMPARISON: None. TECHNIQUE: Abdomen and pelvis were scanned utilizing a multidetector helical scanner from the lung base to the pubic symphysis after administration of IV contrast. Coronal and sagittal reformations were obtained. Routine protocol was performed. Scan was performed when during portal venous phase. IV CONTRAST: 100 mL of Isovue 370 ORAL CONTRAST: None COMPLICATIONS: None RADIATION DOSE: Total DLP: 181 mGy*cm Estimated effective dose: (DLP x 0.015 x size factor) mSv CTDIvol has been reviewed. It is below the limits set by the Radiation Protocol Committee (RPC). Dose modulation, iterative reconstruction, and/or weight based adjustment of the mA/kV was utilized to reduce the radiation dose to as low as reasonably achievable. FINDINGS: LINES and TUBES: None. LOWER THORAX: There is bibasilar atelectasis. There is diffuse centrilobular emphysema. HEPATOBILIARY: No focal hepatic lesions. No biliary ductal dilation. GALLBLADDER: No radio-opaque stones or sludge. No wall thickening. SPLEEN: No splenomegaly. PANCREAS: Appears atrophic and not well visualized. ADRENALS: No adrenal nodules KIDNEYS/URETERS: Kidneys enhance symmetrically. No hydronephrosis. No cystic or solid mass lesions. No stones. GI TRACT: There are post surgical changes of the stomach and small bowel. There are multiple loops of small and large bowel with thickened and hyperenhancing oreilly. Appendix is not clearly identified. There is however no fat stranding or adenopathy in the right lower quadrant to suggest appendicitis. PELVIC ORGANS/BLADDER: Pelvic organs not well visualized due to lack of pelvic fat. LYMPH NODES: No lymphadenopathy. VESSELS: The abdominal aorta appears tortuous with focal dilatation in the infrarenal region measuring approximately 3.1 x 2.9 cm. There is severe atherosclerotic disease in the aorta and major arterial branches. PERITONEUM / RETROPERITONEUM: There is diffuse pneumoperitoneum of indeterminate cause. There is small volume ascites. Lack of mesenteric fat limits optimal assessment of the peritoneum and retroperitoneum. BONES: The bones are diffusely demineralized. There is redemonstration of multiple compression fractures of the lower thoracic spine and lumbar spine. No new fracture identified. SOFT TISSUES: There is diffuse anarsarca. IMPRESSION: 1. Multiple loops of large and small bowel with thickened and hyperenhancing oreilly highly suspicious for shock bowel, usually secondary to hypoperfusion state. 2. Diffuse pneumoperitoneum of indeterminate cause. 3. Small volume ascites. 4. Infrarenal abdominal aortic aneurysm which measures up to 3.1 cm, stable. Recommend yearly follow-up with abdominal ultrasound. 5. Diffuse anasarca. 6. Multiple chronic compression fractures of the thoracolumbar spine. Critical findings were discussed with Dr. Pat over the telephone at 6:52 PM on 05/26/2020. Signed by: Marlin Arcos MD on 05/26/2020 6:59 PM
[2020-05-26] MEDS ORDERED: METRONIDAZOLE 500MG/NS 100ML 100 ML IV ONE (19:15)
--- NOTE | 2020-05-26 19:36 | NUR ---
Received report from off going nurse. Patient have not arrived to floor.
--- NOTE | 2020-05-26 19:47 | NUR ---
Unable to transfer patient to [facility] due to capacity
--- NOTE | 2020-05-26 19:56 | NUR ---
Transfer initiated to [facility] at this time.
[2020-05-26] MEDS ORDERED: VANCOMYCIN 1GM/NS 250 ML 250 ML IV ONE (20:15)
[2020-05-26] MEDS ORDERED: SODIUM CHLORIDE 0.9% 50ML 50 ML ONE (20:22)
[2020-05-26] MEDS ORDERED: IOPAMIDOL 370 MG/ML 200 ML INFUS..BTL INJ ONE (20:22)
--- NOTE | 2020-05-26 20:27 | NUR ---
[facility] C[facility] denied because of capacity
--- NOTE | 2020-05-26 20:37 | NUR ---
[facility] one hour ETA
--- NOTE | 2020-05-26 20:55 | NUR ---
REPORT CALLED TO EV DIAZ AT [facility].
[2020-05-26] MEDS ORDERED: KCL 20MEQ/.9 SOD CHL 1,000 ML IV SCH (21:00)
--- NOTE | 2020-05-26 21:01 | NUR ---
Normal Saline stopped at this time and NS with 20 Meq of potassium started at 100 mL's per hour.
--- NOTE | 2020-05-26 21:39 | NUR ---
[facility]
[2020-05-26 21:50] VITALS: BP 140/52
== END 2020-05-26 22:00 | disposition other institution (70) ==
LOC: ER 15:56 → UNDOADMIN 18:05 → ERHOLD 18:05 → ER 18:46 → MED/SURG3 18:47 → ERHOLD 18:47 → ER 22:00
DX: K63.1 Perforation of intestine (nontraumatic) (principal); K66.8 Other specified disorders of peritoneum; E87.6 Hypokalemia; R53.1 Weakness; R94.31 Abnormal electrocardiogram [ECG] [EKG]; I10 Essential (primary) hypertension; K21.9 Gastro-esophageal reflux disease without esophagitis; I25.10 Atherosclerotic heart disease of native coronary artery without angina pectoris; Z20.828 Contact with and (suspected) exposure to other viral communicable diseases
CPT/HCPCS: 36415; 70450; 71045; 74177; 80053; 81001; 83690; 84484; 85025; 87040; 93005; 99284; J3370; J3480; J7030; J7040; Q9967; U0002